=== PATIENT | female | born 1965 | race Caucasian/White ===

== ENCOUNTER → 2017-06-08 09:07 | Outpatient (CLI) | payer BC, SELFPAY ==
[2017-06-08 09:27] LABS: Microscopic, Urine URINE MICROSCOPIC (MICROSCOPIC)
[2017-06-08 09:56] LABS: Basophils # 0.1 K/mm3 (0-0.2); Basophils % 0.6 % (0.1-2.0); Eosinophils # 0.2 K/mm3 (0.0-0.4); Eosinophils % 1.9 % (0.1-12.0); Hematocrit 45.1 % (37.0-47.0); Hemoglobin 14.5 g/dL (12.2-16.2); Lymphocytes # 1.7 K/mm3 (0.7-4.5); Lymphocytes % 18.7 K/mm3 (10-50); Mean Corpuscular HGB Conc 32.1 g/dL (31.8-35.4); Mean Corpuscular Hemoglobin 28.4 pg (27.0-31.2); Mean Corpuscular Volume 88.3 fl (81-99); Mean Platelet Volume 9.1 fl (7.4-10.4); Monocytes # 0.6 K/mm3 (0.1-1.0); Monocytes % 6.2 % (1.7-9.3); Neutrophils # 6.6 K/mm3 (1.8-7.8); Neutrophils % 72.6 % (37.0-80.0); Platelet Count 252 K/mm3 (142-424); Red Cell Distribution Width 13.3 % (11.5-17.5); White Blood Count 9.1 K/mm3 (4.8-10.8)
[2017-06-08 11:01] LABS: Appearance,Urine CLEAR (Clear); Bilirubin,Urine Negative (Negative); Blood, Urine Negative (Negative); Color,Urine YELLOW (Yellow); Glucose,Urine (UA) Negative (Negative); Ketones,Urine Negative (Negative); Leukocyte Esterase,Urine Negative (Negative); Nitrate,Urine Negative (Negative); PH,Urine 5.5 (5.0-8.5); Protein,Urine Negative (Negative); Specific Gravity, Urine >= 1.030 (1.005-1.030); Urobilinogen,Urine 0.2 EU/dl (0.2)
[2017-06-08 11:24] LABS: WBC,Urine Occasional #/hpf (0-3)
[2017-06-08 11:25] LABS: Bacteria,Urine Trace /lpf; RBC,Urine Occasional #/hpf (0-3)
[2017-06-08 11:41] LABS: Alanine Aminotransferase 32 U/L (12-78); Albumin Level 3.9 gm/dL (3.4-5.0); Albumin/Globulin Ratio 1.3 (1.1-1.8); Alkaline Phosphatase 75 U/L (46-116); Anion Gap 10.4 mEq/L (5-15); Aspartate Amino Transferase 10 U/L (15-37); Bilirubin,Total 0.7 mg/dL (0.2-1.0); Blood Urea Nitrogen 20 mg/dL (7-18); Calcium 9.1 mg/dL (8.5-10.1); Carbon Dioxide 30 mmol/L (21.0-32.0); Chloride 101 mmol/L (98-107); Creatinine,Serum 0.85 mg/dL (0.55-1.02); Estimated Glomerular Filt Rate > 60 ml/min (>60); GFR (African American) > 60 ML/MIN (>60); Globulin 3.1 gm/dl (1.3-3.2); Glucose 105 mg/dL (74-106); Potassium 3.4 mmoL/L (3.5-5.1); Sodium 138 mmol/L (136-145)
[2017-06-08 13:02] LABS: HCG Qualitative, Serum Negative (Negative)
== END ==
PROVIDERS: PCP Obstetrics & Gynecology; Visit Provider Obstetrics & Gynecology
DX: N92.0 Excessive and frequent menstruation with regular cycle (principal); N85.6 Intrauterine synechiae; Z01.818 Encounter for other preprocedural examination
CPT/HCPCS: 36415; 80053; 81001; 84703; 85025

== ENCOUNTER 2017-06-12 10:21 | Inpatient (IN) | payer BC, SELFPAY ==
[2017-06-10 13:52] VITALS: BMI 31.7
[2017-06-12] VITALS (23 sets, daily range): BP systolic 94–139; BP diastolic 55–86; PULSE 57–83; RESP 14–18; TEMP 36.1–43; O2SAT 94–100; BMI 32.2
--- NOTE | 2017-06-12 06:59 | HMH.ANESCL ---
[facility] Anesthesia Checklist - Patient Identification Patient Identification: Arm Band, Verbal (Name & ) - Structural Data Admitted From: Home Planned Operative Procedure/s: ORA Consent for Planned Operative Procedure(s) Verified: Yes Verified Documents: Surgical Consent, History and Physical - NPO Status Verified Time NPO: 00:00 - Chart Verification Results Verified: CBC, BMP - Additional verifications Patient : No Anesthesia Reactions: No Hx Blood Transfusions: No Blood Transfusion Reaction: No - Cardiovascular Assessment Heart Sounds: S1 & S2 Pulse Strength: Strong Pulse Rhythm: Regular Peripheral Edema: No - Airway Assessment C-Spine Mobility Assessed: Yes TMJ Mobility Assessed: Yes Dentition: Good Dentition - Neurological Assessment Level of Consciousness: Awake - Genitourinary Assessment Urinary Incontinence: None - Anesthesia Plan Anesthesia Risk discussed: Yes Anesthesia Plan: Verified ASA Class: II Anesthesia Type: General [facility] Anesthesia HX I have reviewed the patient's past medical history: Yes Medical History: Reports:: Hypertension Denies:: Cancer, Diabetes Mellitus Type 1, Diabetes Mellitus Type 2, MRSA, Seizures Other Medical History: Reports: Thyroid Disease Amputation: No Fractures: No *Family Hx:: Diabetes, Thyroid Disorder
--- NOTE | 2017-06-12 07:02 | P.PN_ITS ---
[facility] Anesthesia Checklist - Patient Identification Patient Identification: Arm Band, Verbal (Name & ) - Structural Data Admitted From: Home Planned Operative Procedure/s: ORA Consent for Planned Operative Procedure(s) Verified: Yes Verified Documents: Surgical Consent, History and Physical - NPO Status Verified Time NPO: 00:00 - Chart Verification Results Verified: CBC, BMP - Additional verifications Patient : No Anesthesia Reactions: No Hx Blood Transfusions: No Blood Transfusion Reaction: No - Cardiovascular Assessment Heart Sounds: S1 & S2 Pulse Strength: Strong Pulse Rhythm: Regular Peripheral Edema: No - Airway Assessment C-Spine Mobility Assessed: Yes TMJ Mobility Assessed: Yes Dentition: Good Dentition - Neurological Assessment Level of Consciousness: Awake - Genitourinary Assessment Urinary Incontinence: None - Anesthesia Plan Anesthesia Risk discussed: Yes Anesthesia Plan: Verified ASA Class: II Anesthesia Type: General [facility] Anesthesia HX I have reviewed the patient's past medical history: Yes Medical History: Reports:: Hypertension Denies:: Cancer, Diabetes Mellitus Type 1, Diabetes Mellitus Type 2, MRSA, Seizures Other Medical History: Reports: Thyroid Disease Amputation: No Fractures: No *Family Hx:: Diabetes, Thyroid Disorder
--- NOTE | 2017-06-12 09:03 | HMH.OPNOTE ---
Date of procedure: 06/12/17 Pre-op Diagnosis:: Dysfunctional uterine bleeding Post-op diagnosis:: same Procedure performed:: Total abdominal hysterectomy, bilateral salpingo-oophorectomy Surgeon:: Terell Lewis MD Upholstery Handler(s):: JULIANN Kerns EVALUATION ADVISOR:: Carlos Quinonez Anesthesia: GETA Estimated blood loss (mL): 300 Operative findings:: Dysfunctional uterine bleeding, extensive pelvic adhesions. Operative note:: After the patient was prepped and draped in usual fashion and general anesthesia was administered, a lower abdominal Pfannenstiel incision was made through the previous incision, and the fat and fascia was in usual fashion, bleeders being clamped and coagulated along the way. The peritoneum was entered with Metzenbaum scissors, and extended above and below. The uterus was found to be adherent to the anterior abdominal wall, and the bladder was well advanced on the uterus, consistent with previous sections. Both adnexa appeared normal, but were adherent to the pelvic sidewalls. The bowel was packed away, and a self-retaining Debbi retractor with bladder blade was placed. The uterine fundus was grasped with a double-tooth tenaculum, and elevated. The round ligament on either side was Spencer clamped, cut, and Belem suture with #1 Vicryl, after which the bladder peritoneum was carefully dissected free. The ovarian ligaments on either side with Belem clamp, cut, and Belem sutured with #1 Vicryl, as were the uterine vessels and cardinal and uterosacral ligaments. The vagina was entered anteriorly with a knife, and the uterine specimen was removed with Kobe scissors. Cohoon clamps were used to tent up the vaginal cuff, which was closed with a running locked suture of #1 Vicryl. There was no undue bleeding. Gelfoam was placed against the back of the vaginal cuff for hemostasis. Each adnexa was then addressed, and carefully dissected free from the pelvic sidewall. The infundibulopelvic ligament on either side with Belem clamp, cut, and Belem suture with #1 Vicryl, thus removing each adnexa. The appendix was identified, but was retrocecal and remains in situ. The peritoneum was grasped with 3 Cherelle clamps, and closed with a running semi-locked suture of 0 Vicryl. The muscle was approximated with a running unlocked suture of 0 Vicryl. The fascia was closed with a running locked suture of #1 Vicryl. The subcutaneous fat and Ivan's fascia were closed with a running unlocked suture of 2-0 Vicryl. The skin was closed with a subcuticular suture of 3-0 Vicryl, and appropriately dressed. The urine was clear in the Jiménez catheter. The sponge and needle count was correct. Estimated blood loss was 300 cc. The patient tolerated the procedure well, and was taken to PACU in excellent condition. Pathology: other (Uterus, both adnexa) Condition: stable Disposition: floor Complications:: None
--- NOTE | 2017-06-12 09:09 | P.OP_ITS ---
Date of procedure: 06/12/17 Pre-op Diagnosis:: Dysfunctional uterine bleeding Post-op diagnosis:: same Procedure performed:: Total abdominal hysterectomy, bilateral salpingo-oophorectomy Surgeon:: Terell Lewis MD Machine Joint Cutter(s):: JULIANN Kerns PROJECT MANAGER SENIOR:: Carlos Quinonez Anesthesia: GETA Estimated blood loss (mL): 300 Operative findings:: Dysfunctional uterine bleeding, extensive pelvic adhesions. Operative note:: After the patient was prepped and draped in usual fashion and general anesthesia was administered, a lower abdominal Pfannenstiel incision was made through the previous incision, and the fat and fascia was in usual fashion, bleeders being clamped and coagulated along the way. The peritoneum was entered with Metzenbaum scissors, and extended above and below. The uterus was found to be adherent to the anterior abdominal wall, and the bladder was well advanced on the uterus, consistent with previous sections. Both adnexa appeared normal, but were adherent to the pelvic sidewalls. The bowel was packed away, and a self-retaining Debbi retractor with bladder blade was placed. The uterine fundus was grasped with a double-tooth tenaculum, and elevated. The round ligament on either side was Spencer clamped, cut, and Belem suture with #1 Vicryl, after which the bladder peritoneum was carefully dissected free. The ovarian ligaments on either side with Belem clamp, cut, and Belem sutured with #1 Vicryl, as were the uterine vessels and cardinal and uterosacral ligaments. The vagina was entered anteriorly with a knife, and the uterine specimen was removed with Kobe scissors. Cohoon clamps were used to tent up the vaginal cuff, which was closed with a running locked suture of # 1 Vicryl. There was no undue bleeding. Gelfoam was placed against the back of the vaginal cuff for hemostasis. Each adnexa was then addressed, and carefully dissected free from the pelvic sidewall. The infundibulopelvic ligament on either side with Belem clamp, cut, and Belem suture with #1 Vicryl, thus removing each adnexa. The appendix was identified, but was retrocecal and remains in situ. The peritoneum was grasped with 3 Cherelle clamps, and closed with a running semi-locked suture of 0 Vicryl. The muscle was approximated with a running unlocked suture of 0 Vicryl. The fascia was closed with a running locked suture of #1 Vicryl. The subcutaneous fat and Ivan's fascia were closed with a running unlocked suture of 2-0 Vicryl. The skin was closed with a subcuticular suture of 3-0 Vicryl, and appropriately dressed. The urine was clear in the Jiménez catheter. The sponge and needle count was correct. Estimated blood loss was 300 cc. The patient tolerated the procedure well, and was taken to PACU in excellent condition. Pathology: other (Uterus, both adnexa) Condition: stable Disposition: floor Complications:: None
--- NOTE | 2017-06-12 09:16 | P.PN_ITS ---
[facility] Anesthesia Record Part II Discharge Time: 09:40 Destination: 2nd floor PACU nurse assessment reviewed?: Yes Patient Condition:: Good Anesthesia Complications:: None
--- NOTE | 2017-06-12 09:16 | P.PN_ITS ---
[facility] Anesthesia Record Part I Intake, IV Amount: 1,600 Estimated blood loss (mL): 300 Urine output (mL): 100 Blood Pressure: 135/71 SaO2: 98 Pulse Rate: 74 Respiratory Rate: 16 Temperature: 97.3 F Patient is:: Drowsy, Nasal O2, Stable Stable to PACU at:: 09:10
--- NOTE | 2017-06-12 10:58 | PC.NURSE ---
100 ml out of f/c when emptied in OR
--- NOTE | 2017-06-12 11:07 | PC.NURSE ---
Pt resting comfortably in bed at this time, family members present at bedside. Pt dozing. Pt presented to the floor at 1005 drowsy and with nasal cannula in place. SaO2 95-99% on 2 L when pt arrived in department. Pt has now been weaned to room air with SaO2 of 97%.
--- NOTE | 2017-06-12 11:13 | PC.NURSE ---
Oral temp of 97.2, pt has been drinking water and eating ice chips, will continue to monitor temp.
[2017-06-12 12:14] LABS: Hematocrit 39.3 % (37.0-47.0); Hemoglobin 12.6 g/dL (12.2-16.2)
--- NOTE | 2017-06-12 12:56 | PC.NURSE ---
Dr. Lewis in to see pt at this time. MD discussing surgery with pt, pt v/u. Pt expresses concern to MD that her hands are swollen, new orders from MD to decrease LR rate from 125 ml/hr to 25 ml/hr. Pt also requesting to eat sherbet, new orders from to advance pt to a full liquid diet for dinner. New order also at this time to remove joseph catheter tonight around 2100. All verbal orders repeated and verified.
--- NOTE | 2017-06-12 14:15 | PC.NURSE ---
Pulse oximetry monitor beeping while pt is dozing, SaO2 ranging from 88-94% while pt is dozing. 2 L O2 being administered at this time via nasal cannula. Pt resting in bed, denies any needs.
--- NOTE | 2017-06-12 16:29 | HMH.ACPN ---
Internal Medicine - PN: Subj *Date: 06/12/17 *Time: 16:29 (This is day of surgery. The patient is afebrile. Vital signs stable. Wound clean. Abdomen soft. Surgeries been explained to the patient. impression stable.) Exam Vital signs and Labs for Last 24 Hours: Temp Pulse Resp BP Pulse Ox 97.6 F 76 16 108/66 100 06/12/17 15:15 06/12/17 15:15 06/12/17 15:15 06/12/17 15:15 06/12/17 15:15 Laboratory Results - last 24 hr 06/12/17 11:38: Hgb 12.6, Hct 39.3 I & O for Last 24 hours: Intake & Output 06/10/17 06/11/17 06/12/17 06/13/17 11:59 11:59 11:59 11:59 Intake Total 1600 / 1600 Output Total 100 / 100 Balance 1500 / 1500 Weight 168 lb 170 lb 12.573 oz
--- NOTE | 2017-06-12 17:15 | PC.NURSE ---
Pt remains A&O X3 at this time, has been dozing this shift, VSS, family member at bedside talking with pt. On reassessment, lung sounds are clear throughout, no s/s distress, abdomen soft and moderately tender in bilateral lower quads with BS hypoactive in all quads. F/C patent and draining alvaro colored urine at bedside, sediment noted, approx 400 ml noted in catheter bag at this time. Pt is s/p ORA, LTV incision is C/D/I with bruising noted around incision. Dressing changed at this time by RN, tolerated well by pt. Dressing was saturated with serosang. drainage. Telfa and tegaderm dressing is now C/D/I. Pt is tolerating full liquid diet well with no c/o nausea or vomiting. 20 G IV intact to left hand and infusing LR at 25 ml/hr per MD order. Will continue to monitor.
--- NOTE | 2017-06-12 19:05 | PC.NURSE ---
Report given to Michele De Santiago RN at this time.
--- NOTE | 2017-06-12 22:00 | PC.NURSE ---
Addendum entered by Jennifer Swain RN 06/13/17 06:48: IV infusing in Lt hand instead of RT Original Note: Report received from DEMI Mir. Pt currently asleep. Was medicated with pain medication arount 1899.. IV infusing in rt hand w/o difficulty. F/C patent to BSD with very small amt of dark, concentrated urine noted. IV fluids were decreased per Dr. Lewis just before shift change r/t pt not receiving normal diuretic medications x2.
--- NOTE | 2017-06-12 23:00 | PC.NURSE ---
Pt sleeping soundly upon entering room. Lying on rt side. F/C patent to bsd. Cloudy / concentrated urine noted in drainage bag.
[2017-06-13] VITALS (8 sets, daily range): BP systolic 101–116; BP diastolic 53–72; PULSE 71–88; RESP 16–20; TEMP 36.4–37.2; O2SAT 96–99
--- NOTE | 2017-06-13 02:57 | PC.NURSE ---
IV FLUIDS INCREASED TO 75ML/HR R/T DECREASED URINE OUTPUT WELL THICK CONCENTRATED URINE.
--- NOTE | 2017-06-13 03:33 | PC.NURSE ---
LTV INCISION DRESSING COMPLETELY SATURATED WITH BRIGHT RED BLOOD. DRESSING REMOVED AND INCISION CLEANED WITH 1/2 STRENGTH PEROXIDE. INCISION WELL APPROXIMATED, NO ACTIVE OOZING OR DRAINAGE VISIBLY NOTICED AT THIS TIME. MODERATE AMT OF BRUISING TO BILATERAL SIDES OF INCISION WELL LOWER LEFT SIDE. DISCUSSED HOME CARE / CLEANSING OF INCISION WITH PATIENT. PT VERBALIZES UNDERSTANDING. NEW 3X4 CURAD STERILE NON-STICK DRESSING WITH TEGADERM FOLDED IN 1/2 AND APPLIED MILD PRESSURE DRESSING. PT TOLERATED PROCEDURE WELL.
--- NOTE | 2017-06-13 07:06 | PC.NURSE ---
Report to ThuyRN
--- NOTE | 2017-06-13 08:58 | HMH.ACPN ---
Internal Medicine - PN: Subj *Date: 06/13/17 *Time: 08:58 (This is postop day #1. Hemoglobin 12.6 g. Doing well. Abdomen soft. Wound clean. Urine output is good. Plan is to increase diet and ambulation today.) Exam Vital signs and Labs for Last 24 Hours: Temp Pulse Resp BP Pulse Ox 98.0 F 73 18 116/64 99 06/13/17 03:14 06/13/17 03:14 06/13/17 03:14 06/13/17 03:14 06/13/17 03:14 Laboratory Results - last 24 hr 06/12/17 11:38: Hgb 12.6, Hct 39.3 I & O for Last 24 hours: Intake & Output 06/10/17 06/11/17 06/12/17 06/13/17 11:59 11:59 11:59 11:59 Intake Total 1600 / 1600 1394 / 1394 Output Total 100 / 100 645 / 645 Balance 1500 / 1500 749 / 749 Weight 168 lb 170 lb 12.573 oz
--- NOTE | 2017-06-13 08:59 | PC.NURSE ---
DR BIRMINGHAM AT BEDSIDE, ORDERED TO REMOVE STODDARD CATH, FULL LIQUID DIET WITH TOAST. AMBULATION TODAY.
--- NOTE | 2017-06-13 12:14 | PC.NURSE ---
06/13/17 1135 AFTER STODDARD CATHETER REMOVED, LUIS ANGEL CARE PROVIDED, MESH PANTIES AND LUIS ANGEL PAD APPLIED, SCANT AMOUNT OF VAGINAL BLEEDING NOTED. OFFERED TO HELP PATIENT TO THE SHOWER, SHE REFUSED AT THIS TIME, PARTIAL BED LINENS CHANGED, PATIENTS CLOTHING CHANGED AT THIS TIME, ICE PITCHER FILLED, DRINKING TEA HER BROUGHT IN FROM HOME, STOOD AT SIDE OF BED A WALK AROUND.
--- NOTE | 2017-06-13 12:23 | PC.NURSE ---
LOW TRANSVERSE INCISION COVERED WITH TELFA AND TEGA DERM, DRESSING REMAINS CLEAN, DRY AND INTACT, BRUISING NOTED UNDER DRESSING ON THE LEFT SIDE OF THE INCISION.
--- NOTE | 2017-06-13 13:19 | P.CONPHA_ITS ---
[facility] Pharmacy VTE Monitoring - Patient Demographics Admission date: 06/12/17 Report Date: 06/13/17 Time: 13:18 Allergies/Adverse Reactions: erythromycin base Allergy (Intermediate, Verified 06/12/17 06:37) I-HIVES Height: 1.55 m Weight: 77.467 kg - VTE Risk Labs: VTE Related Lab Results Hgb 12.6 g/dL (12.2-16.2) 06/12/17 11:38 Hct 39.3 % (37.0-47.0) 06/12/17 11:38 - Prophylaxis VTE Prophylaxis Ordered?: Yes Types of VTE Prophylaxis: IPCS Knee High Location of Applied Device: Bilateral Lower Extremeties
--- NOTE | 2017-06-13 16:32 | PC.NURSE ---
LAB AT BEDSIDE DRAWING STAT CBC AND CHEM 7
[2017-06-13 16:39] LABS: Basophils % 0.2 % (0.1-2.0); Eosinophils % 0.2 % (0.1-12.0); Hematocrit 28.8 % (37.0-47.0); Hemoglobin 9.3 g/dL (12.2-16.2); Lymphocytes % 15.9 K/mm3 (10-50); Mean Corpuscular HGB Conc 32.4 g/dL (31.8-35.4); Mean Corpuscular Hemoglobin 28.8 pg (27.0-31.2); Mean Corpuscular Volume 88.8 fl (81-99); Mean Platelet Volume 10.5 fl (7.4-10.4); Monocytes # 0.5 K/mm3 (0.1-1.0); Monocytes % 4.3 % (1.7-9.3); Neutrophils # 9.9 K/mm3 (1.8-7.8); Neutrophils % 79.4 % (37.0-80.0); Platelet Count 198 K/mm3 (142-424); Red Blood Count 3.25 M/mm3 (4.20-5.40); Red Cell Distribution Width 13.4 % (11.5-17.5); White Blood Count 12.5 K/mm3 (4.8-10.8)
[2017-06-13 16:44] LABS: Anion Gap 4.1 mEq/L (5-15); Blood Urea Nitrogen 18 mg/dL (7-18); Carbon Dioxide 34 mmol/L (21.0-32.0); Chloride 103 mmol/L (98-107); Creatinine Clearance Estimated 117 mL/min (0-300); Creatinine,Serum 0.71 mg/dL (0.55-1.02); Estimated Glomerular Filt Rate 87 ml/min (>60); GFR (African American) 106 ML/MIN (>60); Glucose 112 mg/dL (74-106); Potassium 3.1 mmoL/L (3.5-5.1); Sodium 138 mmol/L (136-145)
--- NOTE | 2017-06-13 16:54 | PC.NURSE ---
DR BIRMINGHAM CALLED WITH CBC AND CHEM 7 RESULTS. H/H 9.3/28.8, WBC 12.5, K+ 3.1 NO NEW ORDERS AT THIS TIME, WANTS PATIENT TO TAKE IV PHENERGAN, SHE IS REFUSING AT THIS TIME. STATES SHE IS ONLY NAUSEATED AND FEELING DIZZY WHEN TRYING TO GET UP ON THE SIDE OF BED. DR BIRMINGHAM NOTIFIED OF THIS, NO NEW ORDERS.
--- NOTE | 2017-06-13 18:32 | PC.NURSE ---
DR BIRMINGHAM CALLED IN FOR AN UPDATE, PATIENT TOOK 6.25MG DOSE OF PHENERGAN AND NAUSEA IS RESOLVED AT THIS TIME. WAS ABLE TO GET UP TO BSC MUCH EASIER THIS TIME, VOIDED 300ML. TOLERATED WELL, REFUSING FURTHER PAIN MEDICATION AT THIS TIME
--- NOTE | 2017-06-13 18:53 | PC.NURSE ---
REPORT GIVEN TO MRECY BORJA RN
--- NOTE | 2017-06-13 20:10 | PC.NURSE ---
STODDARD CATH INSERTED: LOT: [id number] EXP: 2018-12-29 REASON FOR INSERTION: PROLONGED IMMOBILIZATION.
--- NOTE | 2017-06-13 23:50 | PC.NURSE ---
23:45 pT UP TO BSC TO VOID AND REQUESTING PAIN MEDICATION. PT RATES PAIN AT 8/10 ON PAIN SCALE. PT MEDICATED WITH 2MG IV DILAUDID AND 12.5MG PHENERGAN PER REQUEST OF PT AND R/T DILAUDID MAKING PT NAUSEATED TO WHERE SHE CAN'T EAT... PT LYING ON RT SIDE AND REPORTS BEING COMFORTABLE AT THIS TIME (23:52).
[2017-06-14] VITALS (24 sets, daily range): BP systolic 84–111; BP diastolic 34–68; PULSE 77–92; RESP 16–20; TEMP 36.4–37; O2SAT 95–100
--- NOTE | 2017-06-14 05:45 | PC.NURSE ---
LAB PERSONNEL AT TO DRAW H/H.
[2017-06-14 06:43] LABS: Hemoglobin 8.3 g/dL (12.2-16.2)
[2017-06-14 06:44] LABS: Hematocrit 26.3 % (37.0-47.0)
--- NOTE | 2017-06-14 07:12 | HMH.ACPN ---
Internal Medicine - PN: Subj *Date: 06/14/17 *Time: 07:12 Interval history: post-op day #2--Pt is afebrile--VS stable--wound clean--abdomen soft--Passing flatus--Pt c/o extreme weakness--Hgb now 8.3gms--will transfuse 2units packed cells Exam Vital signs and Labs for Last 24 Hours: Temp Pulse Resp BP Pulse Ox 98.6 F 78 16 109/59 98 06/14/17 03:50 06/14/17 03:50 06/14/17 03:50 06/14/17 03:50 06/14/17 03:50 Laboratory Results - last 24 hr 06/13/17 16:30: WBC 12.5 H, RBC 3.25 L, Hgb 9.3 L, Hct 28.8 L, MCV 88.8, MCH 28.8, MCHC 32.4, RDW 13.4, Plt Count 198, MPV 10.5 H, Neut % (Auto) 79.4, Lymph % (Auto) 15.9, Martin % (Auto) 4.3, Eos % (Auto) 0.2, Baso % (Auto) 0.2, Neut # (Auto) 9.9 H, Lymph # (Auto) 2.0, Martin # (Auto) 0.5, Eos # (Auto) 0.0, Baso # (Auto) 0.0 06/13/17 16:30: Sodium 138, Potassium 3.1 L, Chloride 103, Carbon Dioxide 34 H, Anion Gap 4.1 L, BUN 18, Creatinine 0.71, Estimated Creat Clear 117, Estimated GFR 87, Est GFR ( Amer) 106, Glucose 112 H 06/14/17 05:40: Hgb 8.3 L D, Hct 26.3 L I & O for Last 24 hours: Intake & Output 06/11/17 06/12/17 06/13/17 06/14/17 11:59 11:59 11:59 11:59 Intake Total 1600 / 1600 1634 / 1634 600 / 600 Output Total 100 / 100 645 / 645 1895 / 1895 Balance 1500 / 1500 989 / 989 -1295 / -1295 Weight 168 lb 170 lb 12.573 oz 170 lb 12.573 oz
--- NOTE | 2017-06-14 07:15 | P.PN_ITS ---
Internal Medicine - PN: Subj *Date: 06/14/17 *Time: 07:12 Interval history: post-op day #2--Pt is afebrile--VS stable--wound clean--abdomen soft--Passing flatus--Pt c/o extreme weakness--Hgb now 8.3gms--will transfuse 2units packed cells Exam Vital signs and Labs for Last 24 Hours: Temp Pulse Resp BP Pulse Ox 98.6 F 78 16 109/59 98 06/14/17 03:50 06/14/17 03:50 06/14/17 03:50 06/14/17 03:50 06/14/17 03:50 Laboratory Results - last 24 hr 06/13/17 16:30: WBC 12.5 H, RBC 3.25 L, Hgb 9.3 L, Hct 28.8 L, MCV 88.8, MCH 28.8, MCHC 32.4, RDW 13.4, Plt Count 198, MPV 10.5 H, Neut % (Auto) 79.4, Lymph % (Auto) 15.9, Baker % (Auto) 4.3, Eos % (Auto) 0.2, Baso % (Auto) 0.2, Neut # ( Auto) 9.9 H, Lymph # (Auto) 2.0, Baker # (Auto) 0.5, Eos # (Auto) 0.0, Baso # ( Auto) 0.0 06/13/17 16:30: Sodium 138, Potassium 3.1 L, Chloride 103, Carbon Dioxide 34 H, Anion Gap 4.1 L, BUN 18, Creatinine 0.71, Estimated Creat Clear 117, Estimated GFR 87, Est GFR ( Amer) 106, Glucose 112 H 06/14/17 05:40: Hgb 8.3 L D, Hct 26.3 L I & O for Last 24 hours: Intake & Output 06/11/17 06/12/17 06/13/17 06/14/17 11:59 11:59 11:59 11:59 Intake Total 1600 / 1600 1634 / 1634 600 / 600 Output Total 100 / 100 645 / 645 1895 / 1895 Balance 1500 / 1500 989 / 989 -1295 / -1295 Weight 168 lb 170 lb 12.573 oz 170 lb 12.573 oz
[2017-06-14 15:47] LABS: Hemoglobin 10.3 g/dL (12.2-16.2)
--- NOTE | 2017-06-14 16:35 | PC.NURSE ---
bruising noted across entire incision.
--- NOTE | 2017-06-14 20:20 | PC.NURSE ---
low transverse incision without drainage, bruising noted. skin warm and pink. tender to touch
--- NOTE | 2017-06-14 23:30 | PC.NURSE ---
spoke with Dr. Lewis about not having Maxide 25 mg for pt, he stated it was ok to miss this dose.
[2017-06-15 04:00] VITALS: BP 115/57; PULSE 82; RESP 16; TEMP 36.7; O2SAT 96
--- NOTE | 2017-06-15 04:20 | PC.NURSE ---
pt remains stable at this reassment, vss, no pain reported, incision remains unchanged
--- NOTE | 2017-06-15 07:00 | PC.NURSE ---
RECEIVED REPORT FROM Michele DAMON RN
--- NOTE | 2017-06-15 07:31 | P.PN_ITS ---
Internal Medicine - PN: Subj *Date: 06/15/17 *Time: 07:29 (This is postop day #3. The patient's hemoglobin is now 10.3 g, and she is clinically stable. She is eating and ambulating. She has good bowel sounds and passing minimal flatus. Her wound is clean. Abdomen soft. Still having some difficulty with pain management. I am going to keep her one more day and work on her GI function.) Exam Vital signs and Labs for Last 24 Hours: Temp Pulse Resp BP Pulse Ox 98.1 F 82 16 115/57 96 06/15/17 04:00 06/15/17 04:00 06/15/17 04:00 06/15/17 04:00 06/15/17 04:00 Laboratory Results - last 24 hr 06/14/17 08:02: Blood Type O Positive, Antibody Screen Negative, Crossmatch (AHG ) See Detail 06/14/17 08:02: Blood Type Confirm O Positive 06/14/17 15:27: Hgb 10.3 L D, Hct 31.0 L I & O for Last 24 hours: Intake & Output 06/12/17 06/13/17 06/14/17 06/15/17 11:59 11:59 11:59 11:59 Intake Total 1600 / 1600 1634 / 1634 767 / 767 200 / 200 Output Total 100 / 100 645 / 645 2295 / 2295 950 / 950 Balance 1500 / 1500 989 / 989 -1528 / -1528 -750 / -750 Weight 170 lb 12.573 oz 170 lb 12.573 oz
[2017-06-15 07:50] VITALS: BP 105/62; PULSE 93; RESP 16; TEMP 36.9; O2SAT 97
--- NOTE | 2017-06-15 07:50 | PC.NURSE ---
PT RESTING QUIETLY - WAKENS EASILY FOR ASSESSMENT. PT STATES ABD PAIN 5/10 AND TOLERABLE. PT ABLE TO MOVE SIDE TO SIDE IN BED WITHOUT DIFFICULTY. PT OOB AD DAMIEN. PT TOLERATING DIET WELL. DENIES BM SINCE BEFORE SURGERY - STATES + FLATUS. PT TO GET SUPPOSITORY PER DR. BIRMINGHAM WHEN ORDER AVAILABLE FROM PHARMACY. OTHER MEDICATIONS NOT AVAILABLE ON UNIT - PHARMACY AWARE.
--- NOTE | 2017-06-15 08:42 | PC.NURSE ---
PT RESTING - MEDICATED ORDERED. PT TOLERATING PO FLUIDS WELL. WILL CONTINUE TO MONITOR.
--- NOTE | 2017-06-15 09:46 | PC.NURSE ---
PT CURRENTLY SLEEPING. RR EVEN AND UNLABORED.
--- NOTE | 2017-06-15 10:30 | PC.NURSE ---
SPOKE WITH DR. BIRMINGHAM AT 10:27 REGARDING CHANGING PT'S PAIN MEDICATION FROM IV TO PO. RECEIVED NEW ORDER FOR DILAUDID 2 MG PO [id number] PRN. ORDER READ BACK AND VERIFIED. PT ALSO TO ADVANCE TO REGULAR DIET FOR LUNCH PER DR. BIRMINGHAM. ORDER PLACED.
--- NOTE | 2017-06-15 11:07 | PC.NURSE ---
Addendum entered by Giana Ingram RN 06/15/17 11:09: PT AGREEABLE WITH PLAN. Original Note: PT C/O INCREASED PAIN. MEDICATED WITH PO DILAUDID AND ACETAMINOPHEN ORDERED. OUTLINED PLAN FOR PT REGARDING GETTING OOB TO SHOWER AND CHAIR PRIOR TO LUNCH BUT AFTER PAIN MEDICINE HAS TIME TO START WORKING. PT AGREEABLE WITH PT.
[2017-06-15 12:21] VITALS: BP 105/65; PULSE 105; RESP 18; TEMP 37.1; O2SAT 97
--- NOTE | 2017-06-15 12:23 | PC.NURSE ---
PT OOB TO BR FOR SHOWER - NOW SITTING IN CHAIR. STATES PAIN NOW 3/10 AND STATES SHE FEELS MUCH BETTER. LUNCH TRAY AT BEDSIDE.
--- NOTE | 2017-06-15 13:00 | PC.NURSE ---
PT C/O FEELING NAUSEATED AND NOT WANTING TO EAT AT THIS TIME, BUT STILL FEELS VERY HUNGRY. IV PLACED IN L UPPER ARM WITHOUT DIFFICULTY.
--- NOTE | 2017-06-15 13:26 | PC.NURSE ---
PT MEDICATED WITH PHENERGAN IV ORDERED FOR C/O NAUSEA.
--- NOTE | 2017-06-15 14:10 | PC.NURSE ---
PT CONTINUES WITHOUT A BM EVEN AFTER SUPPOSITORY. SENNA GIVEN PER PRN ORDER. PT STATES NAUSEA BETTER - ATTEMPTING TO EAT MASHED POTATOES. CONTINUES TO DRINK FLUIDS HOURLY.
--- NOTE | 2017-06-15 14:22 | PC.NURSE ---
PT OOB AMBULATING FULL [place] AROUND UNIT WITHOUT DIFFICULTY. DENIES DIZZINESS. STATES SHE JUST FEELS WEAK, BUT BETTER THAN YESTERDAY.
--- NOTE | 2017-06-15 15:00 | PC.NURSE ---
PT RESTING QUIETLY - OFFERS NO COMPLAINTS. STATES PAIN TOLERABLE AT THIS POINT. STILL TAKING BITES OF LUNCH TRAY. TOLERATING PO FLUIDS WELL.
[2017-06-15 15:41] LABS: Microscopic,Cath URINE MICROSCOPIC (MICROSCOPIC)
[2017-06-15 15:47] LABS: Appearance,Urine/Cath Turbid (Clear); Blood, Urine/Cath 1+ (Negative); Color,Urine/Cath YELLOW (Yellow); Glucose,Urine/Cath (UA) Negative (Negative); Ketones,Urine/Cath Negative (Negative); PH,Urine/Cath 5.5 (5.0-8.5); Protein,Urine/Cath Negative (Negative); Specific Gravity, Urine/Cath > 1.030 (1.005-1.030)
[2017-06-15 15:48] LABS: Bilirubin,Cath Negative (Negative); Leukocyte Esterase,Cath Negative (Negative); Nitrate,Cath Negative (Negative); Urobilinogen,Cath 0.2 EU/dl (0.2)
[2017-06-15 15:58] LABS: Amorphous Sediment,Ur/Cath 4+ /lpf; Bacteria,Urine/Cath TRACE /lpf
[2017-06-15 16:00] VITALS: BP 133/80; PULSE 88; RESP 16; TEMP 36.7; O2SAT 100
--- NOTE | 2017-06-15 16:00 | PC.NURSE ---
PT DOING WELL - OFFERS COMPLAINTS OF INCREASING PAIN - STATES PAIN MEDICINE GIVEN 5 HOURS AGO (ORAL DILAUDID 2 MG WITH ACETAMINOPHEN) WORKED REALLY WELL FOR HER PAIN. PT STATES AT 15:45 SHE FINALLY HAD A MEDIUM TO LARGE BM. ABD IS SOFT, ROUND, TENDER AT INCISION, WITH + BOWEL SOUNDS THROUGHOUT. PT CONTINUES WITH BRUISING ABOVE INCISION, BUT HAS NO DRAINAGE FROM SITE. DENIES ANY VAG BLEEDING EXCEPT FOR OCCASIONAL SCANT AMOUNT WHEN WIPING AFTER URINATING. LS CLEAR BILATERALLY - ALL LOBES. ENCOURAGED PT TO CONTINUE USING INCENTIVE SPIROMETER. NO EDEMA NOTED. IV PATENT AND INTACT. FAMILY AT BEDSIDE. WILL CONTINUE TO MONITOR.
--- NOTE | 2017-06-15 17:01 | PC.NURSE ---
PT CURRENTLY SLEEPING. RR EVEN AND UNLABORED. SIDE RAILS UP, CALL MARTINEZ IN REACH. WILL CONTINUE TO MONITOR.
--- NOTE | 2017-06-15 18:02 | PC.NURSE ---
PT RESTING WITH EYES CLOSED -WAKENS EASILY. TOLERATING REGULAR DIET WELL. ATE SANDWICH FOR DINNER - REFUSING REST OF DINNER AT THIS TIME. TOLERATING PO FLUIDS WELL. DENIES ANY NEEDS AT THIS TIME. STATES HAS BEEN OOB TO BR PAST HOUR.
--- NOTE | 2017-06-15 19:00 | PC.NURSE ---
all charting completed by edmund deluca rn was reviewed and agreed with by this writter.
--- NOTE | 2017-06-15 19:04 | PC.NURSE ---
REPORT GIVEN TO Nirmala PORRAS RN
[2017-06-15 19:59] VITALS: BP 118/63; PULSE 76; RESP 16; TEMP 36.6; O2SAT 99
[2017-06-15 20:00] VITALS: RESP 16; O2SAT 99
[2017-06-16 00:25] VITALS: BP 114/62; PULSE 79; RESP 18; TEMP 37.2; O2SAT 97
[2017-06-16 05:13] VITALS: BP 118/67; PULSE 78; RESP 16; TEMP 36.8; O2SAT 97
--- NOTE | 2017-06-16 05:17 | PC.NURSE ---
NO ACUTE CHANGES FROM PREVIOUS ASSESSMENT.LUNGS CLEAR,RESP.EVEN AND UNLABORED.PT HAS RESTING WELL TONIGHT,MEDICATED X 1.INCISION OPEN TO AIR NO DRAINAGE NOTED.BRUISING AROUND INCISION.PT REPORTS PASSING FLATUS NO MORE BOWEL MOVEMENTS SINCE YESTERDAY
--- NOTE | 2017-06-16 07:15 | HMH.ACPN ---
Internal Medicine - PN: Subj *Date: 06/16/17 *Time: 07:15 (This is postop day #4. The patient is afebrile. Vital signs stable. Wound clean. Abdomen soft. She is eating and ambulating, and has had a bowel movement. She will be discharged today.) Exam Vital signs and Labs for Last 24 Hours: Temp Pulse Resp BP Pulse Ox 98.2 F 78 16 118/67 97 06/16/17 05:13 06/16/17 05:13 06/16/17 05:13 06/16/17 05:13 06/16/17 05:13 Laboratory Results - last 24 hr 06/12/17 07:20: Urine Color Yellow, Urine Appearance Turbid, Urine pH 5.5, Ur Specific [place] > 1.030 H, Urine Protein Negative, Urine Glucose (UA) Negative, Urine Ketones Negative, Urine Blood 1+, Urine Nitrate Negative, Urine Bilirubin Negative, Urine Urobilinogen 0.2, Ur Leukocyte Esterase Negative, Urine RBC None, Urine WBC None, Ur Squamous Epith Cells None, Urine Bacteria Trace I & O for Last 24 hours: Intake & Output 06/13/17 06/14/17 06/15/17 06/16/17 11:59 11:59 11:59 11:59 Intake Total 1634 / 1634 767 / 767 200 / 200 480 / 480 Output Total 645 / 645 2295 / 2295 950 / 950 Balance 989 / 989 -1528 / -1528 -750 / -750 480 / 480 Weight 170 lb 12.573 oz
--- NOTE | 2017-06-16 07:17 | PC.NURSE ---
report given to ianrn
--- NOTE | 2017-06-16 07:17 | HMH.DCSUM ---
General - General Admission date: 06/12/17 Discharge date: 06/16/17 (This 51-year-old white female was admitted for definitive treatment of dysfunctional uterine bleeding. On the date of admission, she was taken to the operating room, where she underwent a total abdominal hysterectomy and bilateral salpingo-oophorectomy, without complications. Postoperatively, the patient has some difficulty with pain management, and her hemoglobin dropped to 8.3 g, at which time she was transfused 2 units of packed cells. Her hemoglobin is now 10.3 g, and she is clinically stable. She is eating and ambulating, and has had a bowel movement. Her wound is clean. Her abdomen is soft. She is discharged home on the fourth postoperative day on Dilaudid 4 mg (#30), 1 p.o. every 6 hours as needed pain. She received Delestrogen 30 mg IM in PACU. She is given appropriate instructions as to diet, exercise, and wound care, and she is to return to the office in 2 weeks for follow-up. She is not a smoker.) Objective Vital signs: Temp Pulse Resp BP Pulse Ox 98.2 F 78 16 118/67 97 06/16/17 05:13 06/16/17 05:13 06/16/17 05:13 06/16/17 05:13 06/16/17 05:13 Results Labs on day of discharge: Labs from last 24 hours 06/12/17 07:20 Urine Color Yellow Urine Appearance Turbid Urine pH 5.5 Ur Specific [place] > 1.030 H Urine Protein Negative Urine Glucose (UA) Negative Urine Ketones Negative Urine Blood 1+ Urine Nitrate Negative Urine Bilirubin Negative Urine Urobilinogen 0.2 Ur Leukocyte Esterase Negative Urine RBC None Urine WBC None Ur Squamous Epith Cells None Urine Bacteria Trace Meds Home Medications Medication Instructions Recorded Confirmed Type levothyroxine 75 mcg capsule 75 mcg PO QDAY cap 06/08/17 06/12/17 History spironolactone 25 mg tablet 25 mg PO QDAY 06/08/17 06/12/17 History Triamterene/Hydrochlorothiazid 25 - 37.5 mg PO DAILY 06/13/17 06/13/17 History [Maxzide 37.5 mg-25 mg Tablet] Allergies Allergy/AdvReac Type Severity Reaction Status Date / Time erythromycin base Allergy Intermediate I-HIVES Verified 06/12/17 06:37 Discharge Plan - Patient Discharge Instructions - Follow up Plan Home Medications: Home Medications Medication Instructions Recorded Confirmed Type levothyroxine 75 mcg capsule 75 mcg PO QDAY cap 06/08/17 06/12/17 History spironolactone 25 mg tablet 25 mg PO QDAY 06/08/17 06/12/17 History Triamterene/Hydrochlorothiazid 25 - 37.5 mg PO DAILY 06/13/17 06/13/17 History [Maxzide 37.5 mg-25 mg Tablet] Prescriptions/Medication Reconciliation: No Action spironolactone 25 mg tablet 25 mg PO QDAY levothyroxine 75 mcg capsule 75 mcg PO QDAY cap Triamterene/Hydrochlorothiazid [Maxzide 37.5 mg-25 mg Tablet] 25 - 37.5 mg PO DAILY
--- NOTE | 2017-06-16 07:19 | PC.NURSE ---
making am rounds,plans on sending pt home
[2017-06-16 08:45] VITALS: BP 134/79; PULSE 86; RESP 16; TEMP 36.6; O2SAT 98
--- NOTE | 2017-06-16 13:35 | PC.NURSE ---
Discharge complete, completed discharge teaching, no questions at this time. took pt out to car via wheelchair. and spouse
== END 2017-06-16 13:37 | disposition home or self-care (01) | DRG 743 ==
LOC: OB 10:22
PROVIDERS: Admitting Provider Obstetrics & Gynecology; Family Provider Family Medicine; PCP Family Medicine; Visit Provider Obstetrics & Gynecology
PROC: 0UT90ZZ Resection of Uterus, Open Approach (ICD-10-PCS; CPT 58150; principal; 2017-06-12 07:30)
DX: N93.8 Other specified abnormal uterine and vaginal bleeding (principal)
CPT/HCPCS: 58150; 36415; 36430; 80048; 81001; 85014; 85018; 85025; 86850; 96372; 96374; J0131; J2405; J2710; P9016

== ENCOUNTER → 2017-10-15 13:39 | Outpatient (CLI) | payer BC, SELFPAY ==
--- NOTE | 2017-10-15 | MM_ITS ---
MM Dig mamm DX unilat RT CAD, US breast RT complete INDICATION: Palpable abnormality in the upper outer right breast ORDERING PHYSICIAN: Kimi Marquez MD PATIENT AGE: 52 years COMPARISON: 02/18/2017 and 05/29/2015 TECHNIQUE: Standard images performed with probable resolving views and ultrasound of the right breast FINDINGS: There is average fibroglandular tissue. No malignant appearing masses or malignant appearing microcalcification is evident. A skin marker is placed over the upper outer aspect of the right breast where palpable abnormality is reported. No mammographic abnormalities are evident in this region. There is a 5 mm nodular opacity noted in the outer aspect of the right breast which appear to contain some central calcifications. Additional imaging of this area is suggested with spot compression mag views as well as rolled views and second look ultrasound at NO additional charge. There are calcifications in the retroareolar region which may form a somewhat ductal pattern. Spot compression mag views recommended. Right breast ultrasound: There was a vague area of decreased echogenicity at the 10:00 region of the right breast. This is only well seen in the transverse view. This may be due to an area of fatty tissue however, a second look ultrasound is suggested with direct physician supervision IMPRESSION: No discrete abnormality noted on the mammogram at the palpable area with questionable ultrasound findings. Indeterminate nodule with some calcification in the outer aspect of the right breast at 8:00 region. Indeterminate retroareolar calcifications for which spot compression mag views are needed Incomplete, additional imaging recommended BI-RADS Category: BI-RADS Category: 0 Need Additional Imaging Evaluation RECOMMENDED FOLLOW-UP: IMM - IMMEDIATE FOLLOW-UP RECOMMENDED Additional images of the right breast to include spot compression mag views, rolled cc views and second look right breast ultrasound all at no additional charge. An addendum will be added to this report when those images are obtained (A letter has been sent to the patient regarding results of the study.)
== END ==
PROVIDERS: Family Provider Family Medicine; PCP Family Medicine; Visit Provider Family Medicine
DX: N63.11 Unspecified lump in the right breast, upper outer quadrant (principal)
CPT/HCPCS: 76641; 77065

== ENCOUNTER → 2017-10-29 15:44 | Outpatient (CLI) | payer BC, SELFPAY | PROVIDERS: Family Provider Family Medicine; PCP Family Medicine; Visit Provider Family Medicine | DX: R92.8 Other abnormal and inconclusive findings on diagnostic imaging of breast (principal) ==

== ENCOUNTER → 2017-12-21 08:37 | Outpatient (CLI) | payer BC, SELFPAY ==
--- NOTE | 2017-12-21 08:43 | XR_ITS ---
XR knee RT 3V HISTORY: ITS.REASON: ACUTE PAIN OF RIGHT KNEE ORDERING PHYSICIAN: Alek Rodriguez MD PATIENT AGE: 52 years COMPARISON: None FINDINGS: No fracture or dislocation. No lytic or blastic change. Normal mineralization. No significant arthritic changes evident. No other significant findings IMPRESSION: Negative Knee
== END ==
PROVIDERS: PCP Family Medicine; Visit Provider Family Medicine
DX: M25.561 Pain in right knee (principal)
CPT/HCPCS: 73562

== ENCOUNTER → 2018-04-23 17:20 | Outpatient (CLI) | payer BC, SELFPAY | PROVIDERS: PCP Family Medicine; Visit Provider Family Medicine | DX: G47.33 Obstructive sleep apnea (adult) (pediatric) (principal) ==

== ENCOUNTER → 2018-04-29 08:23 | Outpatient (CLI) | payer BC, SELFPAY | PROVIDERS: PCP Family Medicine; Visit Provider Family Medicine | DX: G47.33 Obstructive sleep apnea (adult) (pediatric) (principal) | CPT/HCPCS: 95806 ==

== ENCOUNTER → 2018-08-24 16:54 | Outpatient (CLI) | payer BC, SELFPAY ==
--- NOTE | 2018-08-24 17:08 | MM_ITS ---
MM Dig screening mamm BI w/CAD CAD Screening COMPARISON: Digital mammograms with CAD 02/25/2017 and 05/29/2015 INDICATION: There is a history of breast cancer patient maternal aunt. There has been previous biopsy right breast for benign disease. . TECHNIQUE: Standard CC and MLO images were obtained. R2 CAD reviewed. FINDINGS: Scattered fibroglandular densities are seen in both breasts. Again noted are 2 biopsy clips upper outer quadrant right breast. There are few benign-appearing microcalcifications right breast. There is no new or suspicious lesion in either breast and there are no suspicious microcalcifications. IMPRESSION: Fibrofatty parenchyma with no suspicious lesion seen BI-RADS Category: 2 Benign Finding(s) RECOMMENDED FOLLOW-UP: 1YR - 1 YEAR FOLLOW-UP (A letter has been sent to the patient regarding results of the study.)
== END ==
PROVIDERS: PCP Family Medicine; Visit Provider Family Medicine
DX: Z12.31 Encounter for screening mammogram for malignant neoplasm of breast (principal); N60.19 Diffuse cystic mastopathy of unspecified breast
CPT/HCPCS: 77067

== ENCOUNTER → 2019-02-03 09:02 | Outpatient (CLI) | payer BC, SELFPAY ==
--- NOTE | 2019-02-03 09:14 | XR_ITS ---
PROCEDURE: XR WRIST LT MIN 3V CLINICAL INDICATION: Wrist pain COMPARISON: No exams were available for comparison FINDINGS: No fracture, dislocation, lytic change, or blastic change evident. No significant degenerative change IMPRESSION: No acute findings. Dictated by: Matt Leonard MD 02/03/2019 11:32 Electronically signed by Matt Leonard MD in [place] 02/03/2019 11:32
== END ==
PROVIDERS: PCP Family Medicine; Visit Provider Orthopaedic Surgery
DX: M25.532 Pain in left wrist (principal)
CPT/HCPCS: 73110

== ENCOUNTER → 2019-02-10 14:56 | Outpatient (CLI) | payer BC, SELFPAY ==
--- NOTE | 2019-02-10 15:01 | MR_ITS ---
PROCEDURE: MR WRIST LT WO/W CON CLINICAL INDICATION: Mass of wrist Bluish mass on the anterior aspect of the wrist increasing in size and tender COMPARISON: XR WRIST LT MIN 3V from 02/03/2019 TECHNIQUE: . Multiplanar multi echo sequences are performed without and with gadolinium enhancement FINDINGS: Along the anterior aspect of the left wrist there is a flat like subcutaneous area of altered signal intensity measuring 1.6 cm transverse, 1.3 cm longitudinal, and 0.5 cm in thickness. This is isointense on T1 and becomes hyperintense on T2. This is well-circumscribed this is in the subcutaneous region superficial to the flexor retinaculum and radial to the palmar branch of the ulnar nerve and the flexor carpi ulnaris tendon. This does show some increase in T2 signal and demonstrates uniform fairly intense contrast enhancement. No other significant anomalies are evident. No fracture, dislocation, IMPRESSION: Enhancing subcutaneous soft tissue mass along the volar aspect of the wrist as described above. This does demonstrate contrast enhancement and is not associated with the underlying tendons. Etiology is not certain. Differential diagnosis would include hemangioma, fibrous type lesion/fibroma, or nerve sheath type tumor. Dictated by: Matt Leonard MD 02/14/2019 07:20 Electronically signed by Matt Leonard MD in [place] 02/17/2019 10:00
== END ==
PROVIDERS: PCP Family Medicine; Visit Provider Orthopaedic Surgery
DX: R22.32 Localized swelling, mass and lump, left upper limb (principal)
CPT/HCPCS: 73223; A9576

== ENCOUNTER 2019-04-07 08:30 | Outpatient (RCR) | payer BC, SELFPAY | END 2019-04-07 08:35 | disposition home or self-care (01) | LOC: OT 08:30 | PROVIDERS: Visit Provider Orthopaedic Surgery | DX: M25.532 Pain in left wrist; D18.09 Hemangioma of other sites | CPT/HCPCS: 97110; 97140; 97165 ==

== ENCOUNTER → 2019-07-14 14:03 | Outpatient (CLI) | payer BC, SELFPAY ==
--- NOTE | 2019-07-14 14:08 | XR_ITS ---
PROCEDURE: XR FOOT WT BEARING LT 3V CLINICAL INDICATION: pain COMPARISON: FTR3 FOOT-RT-3 VIEWS from 11/25/2012 FINDINGS: No fracture or dislocation. No lytic or blastic change. There is normal mineralization. The joint spaces are well-preserved. No significant degenerative/arthritic changes. No erosive changes evident. Other findings:There is a mildly prominent calcaneal spur at 11 mm without erosive change. IMPRESSION: Calcaneal spur otherwise negative Dictated by: Matt Leonard MD 07/14/2019 15:11 Electronically signed by Matt Leonard MD in [facility] 07/14/2019 15:11
--- NOTE | 2019-07-14 14:08 | XR_ITS ---
PROCEDURE: XR FOOT WT BEARING RT 3V CLINICAL INDICATION: pain Plantar fasciitis, pain for 3 months COMPARISON: FTR3 FOOT-RT-3 VIEWS from 11/25/2012 FINDINGS: No fracture or dislocation. No lytic or blastic change. There is normal mineralization. The joint spaces are well-preserved. No significant degenerative/arthritic changes. No erosive changes evident. Other findings:There is a small calcaneal spur not significantly changed. IMPRESSION: No acute findings. Dictated by: Matt Leonard MD 07/14/2019 15:06 Electronically signed by Matt Leonard MD in [facility] 07/14/2019 15:06
== END ==
PROVIDERS: PCP Family Medicine; Visit Provider Nurse Practitioner
DX: M79.672 Pain in left foot (principal); M79.671 Pain in right foot
CPT/HCPCS: 73630

== ENCOUNTER → 2019-10-20 15:14 | Outpatient (CLI) | payer BC, SELFPAY ==
--- NOTE | 2019-10-20 15:26 | US_ITS ---
PROCEDURE: US THYROID CLINICAL INDICATION: THYROID NODULE COMPARISON: No exams were available for comparison FINDINGS: The right lobe and isthmus of the thyroid gland has been removed. The left lobe is 4.7 x 1.7 x 2.2 cm with multiple nodules. Nodule A upper pole hyperechoic 6 mm Nodule B upper pole hyperechoic at 7 mm Nodule C mid polar region at 1 x 0.7 cm with a cystic area medially Nodule D lower pole heterogeneous in nature 9 x 6 mm Nodule E lower pole 12 x 8 mm hypoechoic well-circumscribed without calcification. Nodule F 6 x 5 mm mostly cystic in nature. IMPRESSION: Enlarged left lobe of the thyroid gland with multinodular goiter Prior right thyroidectomy Dictated by: Matt Leonard MD 10/20/2019 18:21 Electronically signed by Matt Leonard MD in [facility] 10/20/2019 18:21
[2019-10-20 18:03] LABS: Chloride 100 mmol/L (98-107)
[2019-10-20 18:04] LABS: Sodium 137 mmol/L (136-145)
[2019-10-20 18:06] LABS: Alanine Aminotransferase 37 U/L (12-78); Alkaline Phosphatase 77 U/L (38-126); Aspartate Amino Transferase 34 U/L (14-36); Bilirubin,Total 1.2 mg/dl (0.2-1.3); Blood Urea Nitrogen 15 mg/dl (7-17); Carbon Dioxide 32 mmol/L (22.0-30.0); Estimated Glomerular Filt Rate 66 ml/min (>60); GFR (African American) 80 ML/MIN (>60)
[2019-10-20 18:07] LABS: Albumin Level 4.3 g/dl (3.5-5.0); Albumin/Globulin Ratio 1.4 (1.1-1.8); Calcium 9.5 mg/dl (8.4-10.2); Globulin 3.1 g/dL (1.3-3.2); Glucose 117 mg/dl (74-100); Total Protein,Serum 7.4 g/dl (6.3-8.2)
[2019-10-20 18:23] LABS: T4 (Thyroxine) 7.6 ug/dl (5.53-11.0)
[2019-10-20 18:36] LABS: Thyroid Stimulating Hormone 3.09 uIU/mL (0.465-4.68)
== END ==
PROVIDERS: PCP Family Medicine; Visit Provider Family Medicine
DX: E03.9 Hypothyroidism, unspecified (principal); I10 Essential (primary) hypertension
CPT/HCPCS: 36415; 76536; 80053; 84436; 84443

== ENCOUNTER → 2019-11-09 09:33 | Outpatient (CLI) | payer BC, SELFPAY ==
[2019-11-09 10:45] LABS: Blood Urea Nitrogen 19 mg/dl (7-17); Calcium 9.7 mg/dl (8.4-10.2); Estimated Glomerular Filt Rate 75 ml/min (>60); GFR (African American) 91 ML/MIN (>60)
[2019-11-09 11:01] LABS: Free T4 (Free Thyroxine) 1.14 ng/dl (0.78-2.19)
[2019-11-09 11:15] LABS: Thyroid Stimulating Hormone 4.97 uIU/mL (0.465-4.68)
[2019-11-10 09:12] LABS: Triiodothyronine (T3) Free 3.5 pg/mL (2.0-4.4)
[2019-11-11 17:10] LABS: Calcitonin <2.0 pg/mL (0.0-5.0)
== END ==
PROVIDERS: Visit Provider Otolaryngology
DX: E04.9 Nontoxic goiter, unspecified (principal); R13.10 Dysphagia, unspecified
CPT/HCPCS: 36415; 82308; 82310; 82565; 84439; 84443; 84481; 84520

== ENCOUNTER → 2019-11-24 08:56 | Outpatient (CLI) | payer BC, SELFPAY ==
--- NOTE | 2019-11-24 09:14 | FL_ITS ---
PROCEDURE: FL BARIUM SWALLOW CLINICAL INDICATION: dysphagia COMPARISON: No exams were available for comparison TECHNIQUE: In the upright position the patient was observed to swallow barium in both the AP and lateral view. The cervical esophagus was examined under fluoroscopy with images obtained. The patient was then placed prone in the right anterior oblique position and was observed to swallow barium with Valsalva technique . FLUOROSCOPY TIME: 6 seconds FINDINGS: Small hiatal hernia without reflux is noted. There is a nonobstructive distal esophageal Schatzki's ring. IMPRESSION: Small hiatal hernia reflux, nonobstructive distal esophageal Schatzki's ring Dictated by: Butch Kim 11/24/2019 09:58 Electronically signed by Butch Kim in [facility] 11/24/2019 09:58
--- NOTE | 2019-11-24 09:14 | CT_ITS ---
PROCEDURE: CT SOFT TISSUE NECK W CON CLINICAL HISTORY: swallowing difficulty COMPARISON: No exams were available for comparison TECHNIQUE: Oral Contrast: None IV Contrast: None Axial images obtained with sagittal and coronal reformats. All CT scans at the facility use one or more dose reduction, viz: automated exposure control, ma/kV adjustment per patient size (including targeted exams where dose is matched to indication, i.e. head), or iterative reconstruction technique. FINDINGS: Left thyromegaly with cystic goitrous changes are noted. Visualized lung apices and trachea is unremarkable except for an 8 millimeter calcified right upper lobe granuloma.. The remainder of the deep and superficial facial structures of the neck are unremarkable for mass lesions or significant adenopathy. Orbits, bony structures, and base of brain is unremarkable. IMPRESSION: Cystic goitrous changes of the left thyroid gland Dictated by: Butch Kim 11/24/2019 10:51 Electronically signed by Butch Kim in [facility] 11/24/2019 10:51
== END ==
PROVIDERS: PCP Family Medicine; Visit Provider Otolaryngology
DX: R13.10 Dysphagia, unspecified (principal); E04.9 Nontoxic goiter, unspecified
CPT/HCPCS: 70491; 74220; Q9967

== ENCOUNTER 2019-12-19 01:17 | Observation (INO) | payer BC, SELFPAY ==
[2019-12-19] VITALS (14 sets, daily range): BP systolic 105–147; BP diastolic 61–84; PULSE 73–101; RESP 15–20; TEMP 36.6–36.8; O2SAT 91–99; BMI 42.5; BMI 37.8; BMI 40.6
--- NOTE | 2019-12-19 01:28 | ECG_ITS ---
APPROVED REPORT Exam: Resting ECG HR:87 bpm ECG Measurements Heart Rate 87 AXES GA 108 P 3 QRSd 82 QRS 21 QT 370 T 34 QTc 445 <Conclusion> Sinus rhythm with short GA Otherwise normal ECG Electronically signed by : Partha Hernandez, 12/19/2019 17:36:54
--- NOTE | 2019-12-19 01:33 | XR_ITS ---
PROCEDURE: XR CHEST 2V CLINICAL HISTORY: ELEVATED BP Hypertension COMPARISON: CXR CHEST(2 VIEWS-NOT PORTABLE) from 02/15/2016 XR CHEST PORTABLE from 08/23/2019 FINDINGS: The cardiomediastinal silhouette and pulmonary vascularity are within normal limits. The lungs are clear without infiltrates, suspicious nodules, or pleural effusions. Calcified granulomas is present in the right upper lobe IMPRESSION: No acute findings. Dictated by: Matt Leonard MD 12/19/2019 08:02 Electronically signed by Matt Leonard MD in [place] 12/19/2019 08:02
--- NOTE | 2019-12-19 01:46 | HMH.EDCP ---
ED Disposition Clinical Impression: Obesity (BMI 30-39.9) Chest pain Qualifiers: Chest pain type: precordial pain Qualified Code(s): R07.2 - Precordial pain Disposition: Admitted as Observation Condition on Discharge: Good - Critical Care Critical Care Time: No Attestation: On 12/19/19, the high probability of a clinically significant, sudden or life threatening deterioration of the following system(s) required my full and direct attention, intervention and personal management. The time I documented below is in addition to time spent performing reported procedures but includes the following listed in this critical care notation. Medical Decision Making - Medical Records Medical records reviewed: Yes: I reviewed the patient's medical records. - [place] Inquiry Pt receiving controlled substance: No Vital Signs: 12/19/19 01:25 12/19/19 02:06 12/19/19 02:30 Temperature 97.8 F Temperature Source Oral Pulse Rate Pulse Rate [Right Brachial] 94 H 82 80 Respiratory Rate 16 15 15 Blood Pressure [Right Arm] 147/84 H 105/61 L 127/73 Blood Pressure Mean [Right Arm] 105 75 91 Blood Pressure Source [Right Arm] Automatic Cuff Automatic Cuff Automatic Cuff Blood Pressure Position [Right Arm] Sitting Sitting Sitting 02 Sat by Pulse Oximetry 98 96 98 Oxygen Delivery Method Room Air Room Air Room Air 12/19/19 03:00 12/19/19 03:30 12/19/19 04:12 Temperature Temperature Source Pulse Rate Pulse Rate [Right Brachial] 76 76 73 Respiratory Rate 15 15 19 Blood Pressure [Right Arm] 136/77 117/75 126/72 Blood Pressure Mean [Right Arm] 96 89 90 Blood Pressure Source [Right Arm] Automatic Cuff Automatic Cuff Automatic Cuff Blood Pressure Position [Right Arm] Sitting Sitting Sitting 02 Sat by Pulse Oximetry 98 98 98 Oxygen Delivery Method Room Air Room Air 12/19/19 05:04 12/19/19 05:24 Temperature Temperature Source Pulse Rate 76 Pulse Rate [Right Brachial] 81 Respiratory Rate 16 Blood Pressure [Right Arm] 120/71 Blood Pressure Mean [Right Arm] 87 Blood Pressure Source [Right Arm] Automatic Cuff Blood Pressure Position [Right Arm] Sitting 02 Sat by Pulse Oximetry 91 L Oxygen Delivery Method - Lab Data Lab results reviewed: Yes: I reviewed the patient's lab results. Lab Results 12/19/19 01:40: Troponin I < 0.01, TSH 5.05 H, Thyroxine (T4) 9.9 12/19/19 01:40: WBC 10.9 H, RBC 5.42 H, Hgb 14.9, Hct 45.3, MCV 83.5, MCH 27.5, MCHC 33.0, RDW 14.7, Plt Count 274, MPV 9.3, Neut % (Auto) 59.1, Lymph % (Auto) 33.6, [place] % (Auto) 4.8, Eos % (Auto) 1.8, Baso % (Auto) 0.8, Neut # (Auto) 6.4, Lymph # (Auto) 3.7, [place] # (Auto) 0.5, Eos # (Auto) 0.2, Baso # (Auto) 0.1 12/19/19 01:40: Sodium 138, Potassium 3.4 L, Chloride 101, Carbon Dioxide 28, Anion Gap 12.4, BUN 15, Creatinine 0.80, Estimated Creat Clear 118, Estimated GFR 75, Est GFR ( Amer) 91, Glucose 118 H, Calcium 9.7, Total Bilirubin 1.0, AST 36, ALT 41, Alkaline Phosphatase 98, Total Protein 8.3 H, Albumin 4.6, Globulin 3.7 H, Albumin/Globulin Ratio 1.2 12/19/19 01:40: SARS-CoV-2 IgG Ab (Rapid) Negative, SARS-CoV-2 IgM Ab (Rapid) Negative 12/19/19 01:40: NT-Pro-B Natriuret Pep 31.9 12/19/19 04:10: Troponin I < 0.01 Result diagrams: 12/19/19 01:40 12/19/19 01:40 Orders (Tests/Meds): ED MEDICATIONS Generic Name Dose Route Start Last Admin Trade Name Freq PRN Reason Stop Dose Admin Nitroglycerin 0.4 mg 12/19/19 01:43 12/19/19 01:40 Nitrostat 0.4mg Sl Tablet SL 01/18/20 01:42 1 tab [id number] PRN Administration Chest Pain Discontinued Medications Generic Name Dose Route Start Last Admin Trade Name Freq PRN Reason Stop Dose Admin Albuterol/Ipratropium 3 ml 12/19/19 04:57 12/19/19 05:03 Duoneb 3ml Neb IH 12/19/19 04:58 3 ml ONCE ONE Administration Aspirin 324 mg 12/19/19 01:43 12/19/19 01:44 Aspirin 81mg Chewable Tablet PO 12/19/19 01:44 324 mg ONCE ONE Administration Methylprednisolone So
[2019-12-19 01:48] LABS: Basophils # 0.1 K/mm3 (0-0.2); Basophils % 0.8 % (0.1-2.0); Eosinophils # 0.2 K/mm3 (0.0-0.4); Eosinophils % 1.8 % (0.1-12.0); Hematocrit 45.3 % (37.0-47.0); Hemoglobin 14.9 g/dL (12.2-16.2); Lymphocytes # 3.7 K/mm3 (0.7-4.5); Lymphocytes % 33.6 % (10-50); Mean Corpuscular Hemoglobin 27.5 pg (27.0-31.2); Mean Corpuscular Volume 83.5 fl (81-99); Mean Platelet Volume 9.3 fl (7.4-10.4); Monocytes # 0.5 K/mm3 (0.1-1.0); Monocytes % 4.8 % (1.7-9.3); Neutrophils # 6.4 K/mm3 (1.8-7.8); Neutrophils % 59.1 % (37.0-80.0); Platelet Count 274 K/mm3 (142-424); Red Blood Count 5.42 M/mm3 (4.20-5.40); Red Cell Distribution Width 14.7 % (11.5-17.5); White Blood Count 10.9 K/mm3 (4.8-10.8)
[2019-12-19 02:03] LABS: Alanine Aminotransferase 41 U/L (12-78); Albumin Level 4.6 g/dl (3.5-5.0); Albumin/Globulin Ratio 1.2 (1.1-1.8); Alkaline Phosphatase 98 U/L (38-126); Anion Gap 12.4 mEq/L (5-15); Aspartate Amino Transferase 36 U/L (14-36); Blood Urea Nitrogen 15 mg/dl (7-17); Calcium 9.7 mg/dl (8.4-10.2); Carbon Dioxide 28 mmol/L (22.0-30.0); Chloride 101 mmol/L (98-107); Creatinine Clearance Estimated 118 mL/min (50-200); Estimated Glomerular Filt Rate 75 ml/min (>60); GFR (African American) 91 ML/MIN (>60); Globulin 3.7 g/dL (1.3-3.2); Glucose 118 mg/dl (74-100); Potassium 3.4 mmoL/L (3.5-5.1); Sodium 138 mmol/L (136-145); Total Protein,Serum 8.3 g/dl (6.3-8.2)
--- NOTE | 2019-12-19 02:06 | PC.NURSE ---
pt sitting up on side of bed talking with jefferyrn
[2019-12-19 02:13] LABS: NT Pro Brain Natriuretic Pep. 31.9 pg/mL (0-125)
[2019-12-19 02:20] LABS: T4 (Thyroxine) 9.9 ug/dl (5.53-11.0)
[2019-12-19 02:21] LABS: Troponin I < 0.01 ng/ml (0.00-0.034)
[2019-12-19 02:24] LABS: Coronavirus 19 IgG Antibody Negative (Negative); Coronavirus 19 IgM Antibody Negative (Negative)
[2019-12-19 02:33] LABS: Thyroid Stimulating Hormone 5.05 uIU/mL (0.465-4.68)
--- NOTE | 2019-12-19 04:11 | PC.NURSE ---
sent blood to lab for second troponin
--- NOTE | 2019-12-19 04:14 | PC.NURSE ---
offered blanket at this time. pt accepts. continues to play on her phone.
[2019-12-19 04:50] LABS: Troponin I < 0.01 ng/ml (0.00-0.034)
--- NOTE | 2019-12-19 04:58 | PC.NURSE ---
verbal orders received from resp notified.
--- NOTE | 2019-12-19 05:50 | PC.NURSE ---
attempted to give report to mai hernandez. unable to take at this time due to her phone being improperly charged. will return call.
--- NOTE | 2019-12-19 05:56 | PC.NURSE ---
receiving nurse notified of negative rapid igg/igm blood test for covid. pt received a nasal swab for covid earlier this past week due to a direct contact on 12/03/19. she states she was negative. appropriate ppe worn per staff.
--- NOTE | 2019-12-19 06:11 | PC.NURSE ---
PT ARRIVED TO THE FLOOR VIA W/C FROM ED AT [id number].
--- NOTE | 2019-12-19 06:16 | PC.NURSE ---
Ravinder TERRY NOTIFIED OF CONSULT.
--- NOTE | 2019-12-19 07:13 | HMH.PHAVTE ---
[facility] Pharmacy VTE Monitoring - Patient Demographics Admission date: 12/19/19 Report Date: 12/19/19 Time: 07:13 Allergies/Adverse Reactions: Patient Allergies erythromycin base Allergy (Intermediate, Verified 12/01/19 10:10) I-HIVES Height: 1.55 m Weight: 90.718 kg Patient Problems: Current Active Problems Chest pain (Acute) Obesity (BMI 30-39.9) (Acute) - VTE Risk Labs: VTE Related Lab Results Hgb 14.9 g/dL (12.2-16.2) 12/19/19 01:40 Hct 45.3 % (37.0-47.0) 12/19/19 01:40 Plt Count 274 K/mm3 (142-424) 12/19/19 01:40 BUN 15 mg/dl (7-17) 12/19/19 01:40 Creatinine 0.80 mg/dl (0.52-1.04) 12/19/19 01:40 Estimated Creat Clear 118 mL/min (50-200) 12/19/19 01:40 VTE Score: 3 Clinical Trial Participant: No - Prophylaxis VTE Prophylaxis Ordered?: Yes Types of VTE Prophylaxis: TEDS Knee High
[2019-12-19 07:31] LABS: Basophils # 0.1 K/mm3 (0-0.2); Basophils % 0.4 % (0.1-2.0); Eosinophils # 0.1 K/mm3 (0.0-0.4); Eosinophils % 0.8 % (0.1-12.0); Hematocrit 42.8 % (37.0-47.0); Hemoglobin 14.2 g/dL (12.2-16.2); Lymphocytes # 1.8 K/mm3 (0.7-4.5); Lymphocytes % 14.8 % (10-50); Mean Corpuscular HGB Conc 33.3 g/dL (31.8-35.4); Mean Corpuscular Hemoglobin 27.6 pg (27.0-31.2); Mean Corpuscular Volume 82.9 fl (81-99); Mean Platelet Volume 9.3 fl (7.4-10.4); Monocytes # 0.3 K/mm3 (0.1-1.0); Monocytes % 2.5 % (1.7-9.3); Neutrophils # 9.6 K/mm3 (1.8-7.8); Neutrophils % 81.4 % (37.0-80.0); Platelet Count 245 K/mm3 (142-424); Red Blood Count 5.16 M/mm3 (4.20-5.40); Red Cell Distribution Width 14.8 % (11.5-17.5); White Blood Count 11.8 K/mm3 (4.8-10.8)
[2019-12-19 07:33] LABS: Chloride 99 mmol/L (98-107); Potassium 3.2 mmoL/L (3.5-5.1); Sodium 136 mmol/L (136-145)
[2019-12-19 07:36] LABS: Anion Gap 14.2 mEq/L (5-15); Blood Urea Nitrogen 16 mg/dl (7-17); Calcium 9.4 mg/dl (8.4-10.2); Carbon Dioxide 26 mmol/L (22.0-30.0); Cholesterol 223 mg/dl (140-200); Creatinine Clearance Estimated 145 mL/min (50-200); Estimated Glomerular Filt Rate 88 ml/min (>60); GFR (African American) 106 ML/MIN (>60); Glucose 170 mg/dl (74-100); Triglycerides 95 mg/dl (30-150); VLDL Cholesterol 19 mg/dL (0-40)
[2019-12-19 07:37] LABS: Chol/HDL Ratio 4.1 (1-3.5); HDL Cholesterol 54 mg/dl (40-60); Magnesium 1.8 mg/dl (1.6-2.3)
[2019-12-19 07:47] LABS: Direct LDL Cholesterol 150.36 mg/dL (100-129)
[2019-12-19 07:50] LABS: Troponin I < 0.01 ng/ml (0.00-0.034)
--- NOTE | 2019-12-19 07:53 | PC.NURSE ---
a&o x4. pt denies cp upon arrival to unit from ed. nitro paste remains intact on left upper chest. states she feels like she can't adequately catch her breath. no acute respiratory distress noted. pt sitting upright in bed, talking with this rn. o2 wnl. refused o2 at this time. bilateral lungs noted clear t/o upon auscultation. +1 non-pitting edema noted to ble. vss. remains safe. independent amb in room. call light within reach. will continue to monitor.
--- NOTE | 2019-12-19 08:00 | CA_ITS ---
APPROVED REPORT EXAM: Comprehensive 2D, Doppler, and color-flow Echocardiogram Ground Layer: Hermila Baugh RDCS Ht: 5 ft 1 in Wt: 200lbs BSA: 1.89 BP: 126/72 mmHg Indications: CP 2D Dimensions LVOT 2.04 cm (M/F) 1.5-2.5 M-Mode Dimensions RVDd 2.66 cm (0.9-2.6) LVDd 4.10 cm (3.5-5.7) LVDs 2.37 cm (3.5-5.7) IVSd 0.80 cm (0.6-1.1) PWd 0.89 cm (0.6-1.1) EF (Teich) 73.70% FS 42.20% EDV (Teich) 74.20 mL ESV (Teich) 19.50 mL LV Diastology E/A Ratio 0.90 Mitral Valve MV A Velocity 66.00 (40-130 cm/s) Left Ventricle Left atrium is normal size, left ventricle is normal size, there is no concentric left ventricular hypertrophy, visually estimated ejection fraction 55% with no regional wall motion abnormality, diastolic parameters are within normal range. Right Ventricle Right atrium and right ventricular normal size and contractility. Aortic Valve Aortic valve is grossly normal, there is no aortic stenosis or aortic insufficiency. Mitral Valve Mitral valve is grossly normal, there is mild mitral regurgitation. Tricuspid Valve Tricuspid valve is grossly normal, there is mild tricuspid regurgitation, tricuspid regurgitation jet velocity is inadequate for calculation of the right ventricular systolic pressure. Pulmonic Valve Pulmonic valve is poorly visualized. Great Vessels Aortic root is normal size. Pericardium No significant pericardial effusion noted. Conclusion 1. Normal left ventricular size, preserved left ventricular systolic function, visually estimated ejection fraction 55% with no regional wall motion abnormality. Diastolic parameters are within normal range. 2. Mild mitral and tricuspid regurgitation. 3. No significant pericardial effusion noted. Electronically signed by : Steffen Mayo, 12/19/2019 19:36:30
--- NOTE | 2019-12-19 08:15 | HMH.PHAINT ---
MEDICATION RECONCILIATION COMPLETED ON PATIENT USING EXTERNAL FILL HISTORY FROM PHARMACY. -ZEFERINO WAGNER, DAYNED
--- NOTE | 2019-12-19 08:54 | HMH.HP ---
*Admission Date: 12/19/19 *Chief complaint: high BP *History of present illness: Ms. Holt is a 54-year-old female with a history of hypertension, hyperlipidemia, sleep apnea, depression and anxiety who presented to [facility] ER after experiencing hypertension at her workplace. Patient states that she had an episode of chest tightness prior to going to work that occurred about 1800. She described not being able to get a good breath. She did feel somewhat dizzy and had a blood pressure check at work at which time it was greater than 170/118. Patient did receive a Nitrostat 0.4 mg sublingually, a DuoNeb treatment, aspirin 81 mg, and Solu-Medrol 125 mg IV, as well as nitroglycerin paste in the emergency room. Blood pressures were noted to be 147/84 down to 105/61. TSH was slightly elevated at 5.05 and troponin I's were negative x3. Chest x-ray showed no acute findings. Echocardiogram has been ordered and is pending. Since arriving to her room on the medical floor patient has been complaining of a headache. She has no chest discomfort at present. Cardiology is to see her today. Blood pressure at present is 137/88. Potassium is slightly low at 3.2. Cholesterol profile shows total cholesterol of 223 with an LDL of 150.36 and triglycerides of 95. [facility] History Medical History: Reports:: Anxiety, Depression, Hypertension Denies:: Cancer, Diabetes Mellitus Type 1, Diabetes Mellitus Type 2, Internal Pacemaker, MRSA, Seizures *Have you ever received a pneumonia vaccine?: No *Have you received a flu vaccine this season?: No Other Medical History: Reports: Hypothyroidism, Thyroid Disease (goiter). Denies: Blood Transfusion Reaction, Chemotherapy ( with partial thyroidectomy) Other Surgeries: Yes: Colonoscopy, , Dilation and Curettage, Hysterectomy-Total, Plastic Surgery, Thyroidectomy, Other. 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 Review of Systems - Constitutional Reports headache(s), Denies fever(s) - Eyes Comments: sometimes has blurred vision - ENT Reports headache(s), Reports post nasal drip, Denies dizziness, Denies ear pain, Denies sore throat - *Cardiovascular Reports chest pain (chest tightness), Reports shortness of breath (hard to catch a deep breath) - *Respiratory Reports shortness of breath, Denies chest congestion, Denies cough - *Gastrointestinal Denies abdominal pain, Denies change in bowel habits, Denies constipation, Denies heartburn, Denies loose stools, Denies nausea, Denies vomiting - *Genitourinary Comments: she does not feel that she voids enough with the 2 diuretics - *Musculoskeletal Denies joint pain Comments: usually stands for 12 hours with her job - *Neurologic Reports headache(s) (after nitropaste placed), Denies confusion, Denies dizziness, Denies seizure-like activity Meds Home Medications Medication Instructions Recorded Confirmed Type Triamterene/Hydrochlorothiazid 1 each PO DAILY 06/16/17 12/19/19 History [Dyazide 37.5-25 Capsule] Levothyroxine Sodium 75 mcg PO DAILY 02/21/19 12/19/19 History [Levothyroxine 75mcg (0.075mg) Tab] Omeprazole Magnesium 20 mg PO BID 12/19/19 12/19/19 History Spironolactone [Spironolactone 25 mg PO DAILY 12/19/19 12/19/19 History 25mg Tablet] Allergies Allergy/AdvReac Type Severity Reaction Status Date / Time erythromycin base Allergy Intermediate I-HIVES Verified 12/01/19 10:10 Exam Vital signs and Labs f
--- NOTE | 2019-12-19 10:11 | HMH.CNCARD ---
History of Present Illness Consult date: 12/19/19 Requesting physician: Kimi Marquez Consult reason: chest pain Chief complaint: CP, SOA, lightheadedness Additional Medical History:: 1. Hypertension 2. Remote tobacco use, [id number] history, discontinued 17 years ago 3. Obesity 4. History of anxiety 5. Hypothyroidism 6. GERD 7. History of sleep apnea, intolerant of CPAP therapy History of present illness: Ms. Holt is a 54-year-old female with a history of hypertension, hyperlipidemia, sleep apnea, depression and anxiety who presented to [facility] ER after experiencing hypertension at her workplace. Patient states that she had an episode of chest tightness prior to going to work that occurred about 1800. She described not being able to get a good breath. She did feel somewhat dizzy and had a blood pressure check at work at which time it was greater than 170/118. Patient did receive a Nitrostat 0.4 mg sublingually, a DuoNeb treatment, aspirin 81 mg, and Solu-Medrol 125 mg IV, as well as nitroglycerin paste in the emergency room. Blood pressures were noted to be 147/84 down to 105/61. TSH was slightly elevated at 5.05 and troponin I's were negative x3. Chest x-ray showed no acute findings. Echocardiogram has been ordered and is pending. Since arriving to her room on the medical floor patient has been complaining of a headache. She has no chest discomfort at present. Cardiology is to see her today. Blood pressure at present is 137/88. Potassium is slightly low at 3.2. Cholesterol profile shows total cholesterol of 223 with an LDL of 150.36 and triglycerides of 95. The above per Martha Blackmon APRN for Dr. Marquez Patient confirms onset of heaviness in the chest with inability to obtain a deep breath while at work. Blood pressure noted to be 170/118 mmHg. Improvement but not resolution of symptoms obtained with combination of meds as noted above in route to the ER. Patient continues to have some mild chest discomfort now and the inability to obtain a deep breath. Troponins have returned normal x3 overnight. EKG is sinus rhythm with no acute changes and preliminary echocardiogram shows preserved ejection fraction with no significant evidence of diastolic dysfunction or valvular heart disease. Patient states she has gained about 25 pounds over the last 3 to 6 months. She does relate taking both spironolactone and Maxide at home. [facility] History Medical History: Reports:: Anxiety, Depression, Hypertension Denies:: Cancer, Diabetes Mellitus Type 1, Diabetes Mellitus Type 2, Internal Pacemaker, MRSA, Seizures *Have you ever received a pneumonia vaccine?: No *Have you received a flu vaccine this season?: No Other Medical History: Reports: Hypothyroidism, Thyroid Disease (goiter). Denies: Blood Transfusion Reaction, Chemotherapy ( with partial thyroidectomy) Other Surgeries: Yes: Colonoscopy, , Dilation and Curettage, Hysterectomy-Total, Plastic Surgery, Thyroidectomy, Other. 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
--- NOTE | 2019-12-19 15:38 | HMH.PHAINT ---
PATIENT WAS COUNSELED ON NEW MEDICATIONS: FUROSEMIDE, IRBESARTAN, METOPROLOL, AND LEVOTHYROXINE (INCREASE IN DOSE). THE PATIENT WILL DISCONTINUE ALL HOME MEDICATIONS EXCEPT OMEPRAZOLE. THE PATIENT DID NOR HAVE ANY QUESTIONS.
--- NOTE | 2019-12-19 21:42 | HMH.DCSUM ---
General - General Admission date:: 12/19/19 Discharge date: 12/19/19 HPI HPI: Ms. Holt is a 54-year-old female with a history of hypertension, hyperlipidemia, sleep apnea, depression and anxiety who presented to [facility] ER after experiencing hypertension at her workplace. Patient states that she had an episode of chest tightness prior to going to work that occurred about 1800. She described not being able to get a good breath. She did feel somewhat dizzy and had a blood pressure check at work at which time it was greater than 170/118. Patient did receive a Nitrostat 0.4 mg sublingually, a DuoNeb treatment, aspirin 81 mg, and Solu-Medrol 125 mg IV, as well as nitroglycerin paste in the emergency room. Blood pressures were noted to be 147/84 down to 105/61. TSH was slightly elevated at 5.05 and troponin I's were negative x3. Chest x-ray showed no acute findings. Echocardiogram was ordered. Hospital Course Hospital Course: The patient began complaining of a headache. She had no further chest discomfort. Cardiology was consulted. Her potassium was low and was replaced. She was noted to still be taking phentermine and this was discontinued. She was seen in consultation by cardiology. Her troponins were normal x3 and her echo showed a preserved ejection fraction. Her EKG showed no acute ST segment changes. They suspected the patient had a component of diastolic dysfunction and recommended discontinuing her spironolactone and Maxide and switching her to Lasix 40 mg daily along with losartan 50 mg daily and metoprolol XL 25 mg at night. They felt she could be discharged home with outpatient work-up including a stress test in the near future. Patient was discharged home. Objective Vital signs: Temp Pulse Resp BP Pulse Ox 98.0 F 101 H 20 137/80 99 12/19/19 08:00 12/19/19 12:00 12/19/19 08:00 12/19/19 08:00 12/19/19 08:00 Narrative: - Constitutional no acute distress - *Routine HEENT Exam Head: Present: normocephalic, atraumatic Eye: Present: PERRL. Absent: conjunctival icterus, scleral injection ENT: Present: mucous membranes moist, oropharynx clear, nares patent - *Routine Neck Exam Present: supple. Absent: JVD, carotid bruit, lymphadenopathy, thyromegaly, tenderness - Routine Chest/Breast/Axilla Exam Chest wall: Absent: tenderness - *Routine Respiratory Exam Present: CTA bilaterally (A&P) - *Routine Cardiovascular Exam Present: RRR - *Routine Abdominal Exam Present: soft, normoactive bowel sounds. Absent: tenderness, distended - *Routine Extremities Exam Present: pulses intact. Absent: edema, calf tenderness - *Routine Neurological Exam Present: alert, oriented X3 Results Labs on day of discharge: Labs from last 24 hours 12/19/19 12/19/19 12/19/19 07:18 07:18 07:18 WBC 11.8 H RBC 5.16 Hgb 14.2 Hct 42.8 MCV 82.9 MCH 27.6 MCHC 33.3 RDW 14.8 Plt Count 245 MPV 9.3 Neut % (Auto) 81.4 H Lymph % (Auto) 14.8 [place] % (Auto) 2.5 Eos % (Auto) 0.8 Baso % (Auto) 0.4 Neut # (Auto) 9.6 H Lymph # (Auto) 1.8 Free[place] # (Auto) 0.3 Eos # (Auto) 0.1 Baso # (Auto) 0.1 Sodium 136 Potassium 3.2 L Chloride 99 Carbon Dioxide 26 Anion Gap 14.2 BUN 16 Creatinine 0.70 Estimated Creat Clear 145 Estimated GFR 88 Est GFR ( Amer) 106 Glucose 170 H D Hemoglobin A1c 6.0 Calcium 9.4 Magnesium 1.8 Total Bilirubin AST ALT Alkaline Phosphatase Troponin I NT-Pro-B Natriuret Pep Total Protein Albumin Globulin Albumin/Globulin Ratio Triglycerides 95 Cholesterol 223 H LDL Cholesterol Direct 150.36 H VLDL Cholesterol 19 HDL Cholesterol 54 Cholesterol/HDL Ratio 4.1 H TSH Thyroxine (T4) SARS-CoV-2 IgG Ab (Rapid) SARS-CoV-2 IgM Ab (Rapid) 12/19/19 12/19/19 12/19/19 07:18 04:10 01:4
== END 2019-12-19 16:15 | disposition home or self-care (01) ==
LOC: ER 01:49 → 2ND 05:40
PROVIDERS: Nurse Practitioner Family; Admitting Provider Family Medicine; Emergency Provider Emergency Medicine; PCP Family Medicine; Visit Provider Family Medicine
DX: I10 Essential (primary) hypertension (principal); E03.9 Hypothyroidism, unspecified; E78.5 Hyperlipidemia, unspecified; Z87.891 Personal history of nicotine dependence; E87.6 Hypokalemia; F41.9 Anxiety disorder, unspecified; R73.09 Other abnormal glucose; Z79.899 Other long term (current) drug therapy; R07.9 Chest pain, unspecified
CPT/HCPCS: 36415; 71046; 80048; 80053; 80061; 83036; 83735; 83880; 84436; 84443; 84484; 85025; 86328; 93005; 93306; 96374; 99284; G0378

== ENCOUNTER → 2020-01-12 15:02 | Outpatient (CLI) | payer SELFPAY ==
--- NOTE | 2020-01-12 15:02 | CT_ITS ---
PROCEDURE: CT HEART W CALCIUM SCORE CLINICAL HISTORY: screening for heart disease COMPARISON: No exams were available for comparison TECHNIQUE: Axial images obtained with sagittal and coronal reformats. All CT scans at the facility use one or more dose reduction, viz: automated exposure control, ma/kV adjustment per patient size (including targeted exams where dose is matched to indication, i.e. head), or iterative reconstruction technique. FINDINGS: Coronary artery calcium score is 0. No identifiable calcific plaque is evident. Very low cardiovascular disease risk. Incidental note made a few calcified nodes and a calcified granuloma in the right upper lobe IMPRESSION: No identifiable calcific plaque with very low cardiovascular disease risk Dictated by: Matt Leonard MD 01/13/2020 12:15 Matt Leonard MD in [place] 01/13/2020 12:15
== END ==
PROVIDERS: PCP Family Medicine; Visit Provider Internal Medicine Cardiovascular Disease
DX: Z13.6 Encounter for screening for cardiovascular disorders (principal); R07.2 Precordial pain; R60.0 Localized edema; E66.9 Obesity, unspecified; I10 Essential (primary) hypertension; G47.33 Obstructive sleep apnea (adult) (pediatric); G47.9 Sleep disorder, unspecified; R40.0 Somnolence
CPT/HCPCS: 75571

== ENCOUNTER → 2020-02-17 15:37 | Outpatient (CLI) | payer BC, SELFPAY ==
--- NOTE | 2020-02-17 15:44 | MM_ITS ---
PROCEDURE: MM DIG SCREENING MAMM BI W/CAD Digital Breast Tomosynthesis Included CLINICAL INDICATION: ROUTINE There is a history of breast cancer in the patient's maternal aunt. There has been a previous biopsy right breast for benign disease. COMPARISON: MG,US DMDXUR DIG MAMM-DX UNI-RT from 06/13/2015 MG DMSB DIG MAMM-SCREEN BASILIA W/CAD from 02/25/2017 MG DXRT MM Dig mamm DX unilat RT CAD from 10/15/2017 MG SCBI MM Dig screening mamm BI w/CAD from 08/24/2018 TECHNIQUE: Standard CC and MLO images and 3D Tomosynthesis was obtained. R2 CAD reviewed. FINDINGS: Scattered fibroglandular densities are seen throughout both breast on a background of fatty breast parenchyma. There has been some progressive fatty involution of the breast parenchyma since the previous 2 studies. There is a biopsy clip upper outer quadrant right breast with an associated density consistent with post biopsy scarring. There is a small asymmetric density just deep to the nipple of the right breast with a few indeterminate microcalcifications. Recommend the patient return for spot compression magnification views and ultrasound for additional evaluation. There are normal appearing nodes in both axilla. IMPRESSION: Fibrofatty parenchyma with asymmetric density and possibly associated microcalcifications BI-RAD Category: 0 Need Additional Imaging Evaluation FOLLOW-UP: IMM Immediate Follow-up Recommended (A letter has been sent to the patient regarding results of the study.) Dictated by: Dr. Tone Costa MD 02/20/2020 14:03 Dr. Tone Costa MD in [place] 02/20/2020 14:03
== END ==
PROVIDERS: PCP Family Medicine; Visit Provider Family Medicine
DX: Z12.31 Encounter for screening mammogram for malignant neoplasm of breast (principal)
CPT/HCPCS: 77063; 77067

== ENCOUNTER → 2020-02-24 13:40 | Outpatient (CLI) | payer BC, SELFPAY ==
--- NOTE | 2020-02-24 13:43 | US_ITS ---
PROCEDURE: MM DIG MAMM DX UNILAT RT CAD Digital Breast Tomosynthesis Included CLINICAL INDICATION: ABN MAMM Follow-up abnormal mammogram COMPARISON: MG DMDB DIG MAMM-DX BASILIA from 05/29/2015 MG,US DMDXUR DIG MAMM-DX UNI-RT from 06/13/2015 MG DXRT MM Dig mamm DX unilat RT CAD from 10/15/2017 MG SCBI MM Dig screening mamm BI w/CAD from 08/24/2018 MG MM DIG SCREENING MAMM BI W/CAD from 02/17/2020 US US BREAST RT COMPLETE from 02/24/2020 TECHNIQUE: Standard CC and MLO images and 3D Tomosynthesis was obtained. R2 CAD reviewed. FINDINGS: Mag views are obtained of the right breast. There are several small clusters of microcalcifications. On the CC view these have a smudgy appearance.. Some of the calcifications of interest on the previous mammogram do appear to floor covering layer as milk of calcium on the mL view. These are indeterminate and six-month follow-up is suggested. Clips are present in the upper aspect of the right breast. The nodular area of interest on the screening exam appears to compress out somewhat with some underlying probable small cystic areas with milk of calcium. Right breast ultrasound: 5 x 3 mm cyst is present behind the nipple. No suspicious solid lesions are evident. IMPRESSION: Probably benign findings. There are some indeterminate calcifications which most appear to represent milk of calcium. Asymmetric density is probably related overlying fibroglandular tissue and small cyst. BI-RAD Category: 3 Probably Benign Finding Short Term Follow-up FOLLOW-UP: 3M 3 Month Follow-up (A letter has been sent to the patient regarding results of the study.) Dictated by: Matt Leonard MD 03/01/2020 10:04 Matt Leonard MD in [place] 03/01/2020 10:04
== END ==
PROVIDERS: PCP Family Medicine; Visit Provider Nurse Practitioner Family
DX: R92.8 Other abnormal and inconclusive findings on diagnostic imaging of breast (principal)
CPT/HCPCS: 76641; 77061; 77065; G0279

== ENCOUNTER → 2020-05-07 13:42 | Outpatient (CLI) | payer BC, SELFPAY ==
[2020-05-07 17:54] LABS: Basophils # 0.1 K/mm3 (0-0.2); Basophils % 1.1 % (0.1-2.0); Eosinophils # 0.1 K/mm3 (0.0-0.4); Eosinophils % 1.2 % (0.1-12.0); Hematocrit 46.3 % (37.0-47.0); Hemoglobin 15.4 g/dL (12.2-16.2); Lymphocytes # 2.1 K/mm3 (0.7-4.5); Lymphocytes % 33.2 % (10-50); Mean Corpuscular HGB Conc 33.2 g/dL (31.8-35.4); Mean Corpuscular Hemoglobin 29.7 pg (27.0-31.2); Mean Corpuscular Volume 89.3 fl (81-99); Mean Platelet Volume 10.5 fl (7.4-10.4); Monocytes # 0.7 K/mm3 (0.1-1.0); Monocytes % 11.3 % (1.7-9.3); Neutrophils # 3.3 K/mm3 (1.8-7.8); Neutrophils % 53.2 % (37.0-80.0); Platelet Count 264 K/mm3 (142-424); Red Blood Count 5.18 M/mm3 (4.20-5.40); Red Cell Distribution Width 13.7 % (11.5-17.5); White Blood Count 6.2 K/mm3 (4.8-10.8)
[2020-05-10 09:14] LABS: Covid-19 Nasal PCR Sendout Lex INDETERMINATE
== END ==
PROVIDERS: PCP Family Medicine; Visit Provider Nurse Practitioner Family
DX: Z03.818 Encounter for observation for suspected exposure to other biological agents ruled out (principal)
CPT/HCPCS: 36415; 85025; 87275; 87276; U0004

== ENCOUNTER → 2020-05-10 15:02 | Outpatient (CLI) | payer BC, SELFPAY ==
[2020-05-10 17:10] LABS: Coronavirus 19 IgG Antibody Negative (Negative); Coronavirus 19 IgM Antibody Negative (Negative)
== END ==
PROVIDERS: PCP Family Medicine; Visit Provider Nurse Practitioner Family
DX: Z03.818 Encounter for observation for suspected exposure to other biological agents ruled out (principal)
CPT/HCPCS: 86328

== ENCOUNTER → 2020-05-11 14:35 | Outpatient (CLI) | payer BC, SELFPAY ==
--- NOTE | 2020-05-11 14:39 | XR_ITS ---
PROCEDURE: XR CHEST PORTABLE CLINICAL HISTORY: COVID OUPATIENT Cough COMPARISON: CR CXR CHEST(2 VIEWS-NOT PORTABLE) from 02/15/2016 CR XR CHEST PORTABLE from 08/23/2019 CR XR CHEST 2V from 12/19/2019 FINDINGS: The cardiomediastinal silhouette and pulmonary vascularity are within normal limits. Patchy ground-glass infiltrate is present in the left upper lobe. There are 2 nodules in the right upper lobe which are stable No acute bony abnormalities. IMPRESSION: Patchy ground-glass infiltrate in the left upper lobe which may be seen with Covid19 pneumonia Dictated by: Matt Leonard MD 05/11/2020 15:21 Matt Leonard MD in [place] 05/11/2020 15:21
[2020-05-11 15:49] LABS: Basophils # 0.1 K/mm3 (0-0.2); Basophils % 0.8 % (0.1-2.0); Eosinophils # 0.1 K/mm3 (0.0-0.4); Eosinophils % 0.8 % (0.1-12.0); Hematocrit 45.7 % (37.0-47.0); Hemoglobin 15.7 g/dL (12.2-16.2); Lymphocytes # 2.4 K/mm3 (0.7-4.5); Mean Corpuscular HGB Conc 34.5 g/dL (31.8-35.4); Mean Corpuscular Hemoglobin 29.6 pg (27.0-31.2); Mean Platelet Volume 9.9 fl (7.4-10.4); Monocytes # 0.5 K/mm3 (0.1-1.0); Monocytes % 6.9 % (1.7-9.3); Neutrophils # 4.5 K/mm3 (1.8-7.8); Neutrophils % 59.4 % (37.0-80.0); Platelet Count 285 K/mm3 (142-424); Red Blood Count 5.31 M/mm3 (4.20-5.40); Red Cell Distribution Width 13.4 % (11.5-17.5); White Blood Count 7.6 K/mm3 (4.8-10.8)
[2020-05-11 16:04] LABS: Adenovirus,PCR Not Detected (NotDetected); Bordetella Pertussis Not Detected (NotDetected); Chlamydophila Pneumoniae, PCR Not Detected (NotDetected); Coronavirus 229E Not Detected (NotDetected); Coronavirus NL63 Not Detected (NotDetected); Coronavirus OC43 Not Detected (NotDetected); Coronovirus HKU1,PCR Not Detected (NotDetected); Human Metapneumovirus Not Detected (NotDetected); Influenza A, PCR Not Detected (NotDetected); Influenza AH1, 2009 Not Detected (NotDetected); Influenza AH1, PCR Not Detected (NotDetected); Influenza AH3,PCR Not Detected (NotDetected); Influenza B, PCR Not Detected (NotDetected); Mycoplasma Pneumoniae, PCR Not Detected (NotDetected); Parainfluenza 1, PCR Not Detected (NotDetected); Parainfluenza 2, PCR Not Detected (NotDetected); Parainfluenza 3, PCR Not Detected (NotDetected); Parainfluenza 4, PCR Not Detected (NotDetected); Respiratory Syncytial Virus Not Detected (NotDetected); Rhinovirus/Enterovirus Not Detected (NotDetected)
[2020-05-12 09:25] LABS: Coronavirus 19, PCR Detected (NotDetected)
== END ==
PROVIDERS: PCP Family Medicine; Visit Provider Physician Assistant
DX: Z20.828 Contact with and (suspected) exposure to other viral communicable diseases (principal); U07.1 COVID-19
CPT/HCPCS: 36415; 71045; 85025; 87581; 87633; 87798

== ENCOUNTER → 2020-06-05 14:40 | Outpatient (CLI) | payer BC, SELFPAY ==
--- NOTE | 2020-06-05 | US_ITS ---
PROCEDURE: MM DIG MAMM DX UNILAT RT CAD Digital Breast Tomosynthesis Included RIGHT BREAST ULTRASOUND WITH AXILLA CLINICAL INDICATION: 3 MONTH F/U COMPARISON: MG SCBI MM Dig screening mamm BI w/CAD from 08/24/2018 MG MM DIG SCREENING MAMM BI W/CAD from 02/17/2020 MG MM DIG MAMM DX UNILAT RT CAD from 02/24/2020 US US BREAST RT COMPLETE from 02/24/2020 US US BREAST RT COMPLETE from 06/05/2020 TECHNIQUE: Standard images performed along with spot compression Mag views and right breast ultrasound FINDINGS: There is average fibroglandular tissue. There are several clusters of calcification noted. In the medial aspect of the right breast there is a continued cluster calcifications associated with nodular density. A few of these calcifications are somewhat amorphous on the Mag views under somewhat worrisome on the brunilda images.. These are somewhat worrisome and biopsy is suggested. In the medial aspect of the right breast a developing nodular density is noted with calcifications somewhat better seen on the brunilda images. Biopsy of this area also suggested. Right breast ultrasound: There is a tiny cyst the retroareolar region. No suspicious sonographic abnormalities are apparent. IMPRESSION: Suspicious clusters of calcification both medial and lateral aspect of the right breast for which stereotactic biopsy is suggested. BI-RAD Category: 4 Suspicious Abnormality - Biopsy Considered FOLLOW-UP: BIO Biopsy Recommended (A letter has been sent to the patient regarding results of the study.) Dictated by: Matt Leonard MD 06/13/2020 10:57 Matt Leonard MD in [place] 06/13/2020 10:57
== END ==
PROVIDERS: PCP Family Medicine; Visit Provider Family Medicine
DX: R92.8 Other abnormal and inconclusive findings on diagnostic imaging of breast (principal)
CPT/HCPCS: 76641; 77061; 77065; G0279

== ENCOUNTER → 2020-06-28 09:33 | Outpatient (CLI) | payer BC, SELFPAY ==
--- NOTE | 2020-06-28 | MM_ITS ---
PROCEDURE: PROCEDURE: MM STEREOTACTIC LOC RT MM STEREOTACTIC LOC RT x2 MAMMO CLIP PLACEMENT. And SURGICAL SPECIMEN x2 CLINICAL INDICATION: NEOPLASM OF UNCERTAIN BEHAVIOR OF RT BREAST Abnormal mammogram with suspicious breast calcifications at 10 o'clock and 2 o'clock.. COMPARISON: MG MM DIG SCREENING MAMM BI W/CAD from 02/17/2020 MG MM DIG MAMM DX UNILAT RT CAD from 02/24/2020 MG MM DIG MAMM DX UNILAT RT CAD from 06/05/2020 MG MM CLIP PLACEMENT RT from 06/28/2020 MG MM SURGICAL SPECIMEN RT from 06/28/2020 TECHNIQUE: Preop sedation was given with 1 mg alprazolam and 7.5 mg hydrocodone by mouth. Following obtaining informed consent and time-out patient was placed in the stereotactic unit. There are 2 areas of calcification which are suspicious. Using standard stereotactic technique both of these areas were localized and under aseptic conditions and local anesthesia with 1 percent buffered lidocaine and deeper anesthesia with lidocaine mixed with epinephrine, skin mychal was performed and mammotome needle inserted. Multiple mammotome biopsies were obtained. Specimen radiograph demonstrated calcifications of interest. Non ferromagnetic clips were placed to jane the area of biopsy x2. The patient tolerated the procedure well without evidence of immediate complications and left radiology suite in stable condition. Surgical specimen 10 o'clock and 2 o'clock. Both specimens demonstrated calcifications of interest. FINDINGS: Pathology: Calcifications at 2 o'clock: Non proliferative fibrocystic change with apocrine metaplasia and focal fat necrosis. Microcalcifications identified. Negative for in situ and invasive malignancy. Pathology calcifications at 10 o'clock: Non proliferative fibrocystic change with apocrine metaplasia and focal fat necrosis. Microcalcifications identified. Negative for in situ and invasive malignancy IMPRESSION: Successful stereotactic directed biopsy x2 of the right breast. Both areas show benign findings negative for DCIS and invasive malignancy. Recommend follow-up mammogram in 6 months per routine protocol. Mammo clip placement: There are postsurgical changes with post biopsy changes noted. New clip is present at the 2 o'clock region near the area low a and at the 10 o'clock region in the upper outer right breast. The areas of calcification have been removed. Impression: BI-RAD Category: 2 Benign Finding(s) FOLLOW-UP: 6M 6Month Follow-up (A letter has been sent to the patient regarding results of the study.) Dictated by: Matt Leonard MD 07/02/2020 17:48 Matt Leonard MD in [place] 07/02/2020 17:48 Dictated by: Matt Leonard MD 07/13/2020 12:25 Matt Leonard MD in [place] 07/13/2020 12:25
== END ==
LOC: RAD 09:36
PROVIDERS: PCP Family Medicine; Visit Provider Family Medicine
DX: R92.0 Mammographic microcalcification found on diagnostic imaging of breast (principal); D48.61 Neoplasm of uncertain behavior of right breast
CPT/HCPCS: 19081; 76098; 77065

== ENCOUNTER → 2020-10-24 11:25 | Outpatient (CLI) | payer BC, SELFPAY ==
[2020-10-24 12:25] LABS: Basophils # 0.1 K/mm3 (0-0.2); Basophils % 0.9 % (0.1-2.0); Eosinophils # 0.3 K/mm3 (0.0-0.4); Eosinophils % 4.1 % (0.1-12.0); Hemoglobin 13.7 g/dL (12.2-16.2); Lymphocytes % 28.4 % (10-50); Mean Corpuscular HGB Conc 32.7 g/dL (31.8-35.4); Mean Corpuscular Hemoglobin 27.9 pg (27.0-31.2); Mean Corpuscular Volume 85.4 fl (81-99); Mean Platelet Volume 10.1 fl (7.4-10.4); Monocytes # 0.4 K/mm3 (0.1-1.0); Monocytes % 5.9 % (1.7-9.3); Neutrophils # 4.2 K/mm3 (1.8-7.8); Neutrophils % 60.7 % (37.0-80.0); Platelet Count 231 K/mm3 (142-424); Red Blood Count 4.92 M/mm3 (4.20-5.40); Red Cell Distribution Width 13.3 % (11.5-17.5); White Blood Count 6.9 K/mm3 (4.8-10.8)
== END ==
PROVIDERS: PCP Family Medicine; Visit Provider Nurse Practitioner
DX: Z20.822 Contact with and (suspected) exposure to COVID-19 (principal)
CPT/HCPCS: 36415; 85025; U0003

== ENCOUNTER → 2020-12-11 14:26 | Outpatient (CLI) | payer BC, SELFPAY ==
--- NOTE | 2020-12-11 14:33 | MM_ITS ---
PROCEDURE: MM DIG MAMM DX UNILAT RT CAD Digital Breast Tomosynthesis Included CLINICAL INDICATION: ABN MAMM Follow-up right breast biopsy COMPARISON: MG MM DIG SCREENING MAMM BI W/CAD from 02/17/2020 MG MM DIG MAMM DX UNILAT RT CAD from 06/05/2020 MG MM SURGICAL SPECIMEN RT from 06/28/2020 MG MM STEREOTACTIC LOC RT from 06/28/2020 MG MM STEREOTACTIC LOC RT from 06/28/2020 MG MM CLIP PLACEMENT RT from 06/28/2020 TECHNIQUE: Standard CC and MLO images and 3D Tomosynthesis was obtained. R2 CAD reviewed. FINDINGS: Average fibroglandular tissue. There are 4 biopsy clips present. Previously noted suspicious calcifications at 2 o'clock in the retroareolar region are no longer apparent. Calcifications noted in the 10 o'clock region are less numerous. Clips are present at these areas.. No malignant appearing mass or malignant-appearing microcalcification. IMPRESSION: Benign findings. Post biopsy changes. BI-RAD Category: 2 Benign Finding FOLLOW-UP: Suggest resume screening mammogram in 6 months. (A letter has been sent to the patient regarding results of the study.) Dictated by: Matt Leonard MD 12/12/2020 08:50 Matt Leonard MD in [place] 12/12/2020 08:50
--- NOTE | 2020-12-11 14:35 | XR_ITS ---
PROCEDURE: XR LUMBAR SPINE MIN 4V CLINICAL INDICATION: SCIATICA OF RT SIDE COMPARISON: No exams were available for comparison FINDINGS: Alignment: Normal alignment. Bony structures: Minimal endplate osteophytes at L3-L4 and L5. No acute fracture or dislocation Disc spaces: No significant degenerative change. The disc spaces are preserved. Additional findings: SI joints have an unremarkable appearance. IMPRESSION: Minimal degenerative change Dictated by: Matt Leonard MD 12/11/2020 15:40 Matt Leonard MD in [place] 12/11/2020 15:40
== END ==
PROVIDERS: PCP Family Medicine; Visit Provider Family Medicine
DX: R92.8 Other abnormal and inconclusive findings on diagnostic imaging of breast (principal); R92.1 Mammographic calcification found on diagnostic imaging of breast; M54.31 Sciatica, right side
CPT/HCPCS: 72110; 77061; 77065; G0279

== ENCOUNTER → 2021-05-13 13:51 | Outpatient (CLI) | payer BC, SELFPAY ==
[2021-05-13 14:06] LABS: Adenovirus,PCR Not Detected (NotDetected); Coronavirus 229E Not Detected (NotDetected); Coronavirus NL63 Not Detected (NotDetected); Coronavirus OC43 Not Detected (NotDetected); Coronovirus HKU1,PCR Not Detected (NotDetected); Human Metapneumovirus Not Detected (NotDetected); Influenza A, PCR Not Detected (NotDetected); Influenza AH1, 2009 Not Detected (NotDetected); Influenza AH1, PCR Not Detected (NotDetected); Influenza AH3,PCR Not Detected (NotDetected); Influenza B, PCR Not Detected (NotDetected); Parainfluenza 1, PCR Not Detected (NotDetected); Parainfluenza 2, PCR Not Detected (NotDetected); Parainfluenza 3, PCR Not Detected (NotDetected); Rhinovirus/Enterovirus Not Detected (NotDetected)
[2021-05-13 14:07] LABS: Bordetella Pertussis Not Detected (NotDetected); Chlamydophila Pneumoniae, PCR Not Detected (NotDetected); Coronavirus 19, PCR Not Detected (NotDetected); Mycoplasma Pneumoniae, PCR Not Detected (NotDetected); Parainfluenza 4, PCR Not Detected (NotDetected); Respiratory Syncytial Virus Not Detected (NotDetected)
[2021-05-13 14:19] LABS: Basophils # 0.1 K/mm3 (0-0.2); Basophils % 0.7 % (0.1-2.0); Eosinophils # 0.3 K/mm3 (0.0-0.4); Eosinophils % 2.5 % (0.1-12.0); Hematocrit 44.2 % (37.0-47.0); Hemoglobin 14.3 g/dL (12.2-16.2); Lymphocytes % 30.4 % (10-50); Mean Corpuscular HGB Conc 32.4 g/dL (31.8-35.4); Mean Corpuscular Hemoglobin 28.4 pg (27.0-31.2); Mean Corpuscular Volume 87.7 fl (81-99); Mean Platelet Volume 8.8 fl (7.4-10.4); Monocytes # 0.6 K/mm3 (0.1-1.0); Neutrophils # 5.9 K/mm3 (1.8-7.8); Neutrophils % 60.3 % (37.0-80.0); Platelet Count 313 K/mm3 (142-424); Red Blood Count 5.04 M/mm3 (4.20-5.40); Red Cell Distribution Width 12.7 % (11.5-17.5); White Blood Count 9.8 K/mm3 (4.8-10.8)
--- NOTE | 2021-05-13 14:26 | XR_ITS ---
PROCEDURE: XR CHEST PORTABLE CLINICAL HISTORY: COMPARISON: CR XR CHEST PORTABLE from 08/23/2019 CR XR CHEST 2V from 12/19/2019 CR XR CHEST PORTABLE from 05/11/2020 FINDINGS: The cardiomediastinal silhouette and pulmonary vascularity are within normal limits. The lungs are clear without infiltrates, suspicious nodules, or pleural effusions. Calcified granuloma right upper lobe No acute bony abnormalities. IMPRESSION: No acute findings. Dictated by: Matt Leonard MD 05/13/2021 16:26 Matt Leonard MD in [place] 05/13/2021 16:26
== END ==
PROVIDERS: PCP Family Medicine; Visit Provider Nurse Practitioner Family
DX: Z20.822 Contact with and (suspected) exposure to COVID-19 (principal)
CPT/HCPCS: 36415; 71045; 85025; 87581; 87632; 87798; C9803; U0003; U0005

== ENCOUNTER → 2021-05-21 13:49 | Outpatient (CLI) | payer BC, SELFPAY ==
--- NOTE | 2021-05-21 13:51 | MM_ITS ---
PROCEDURE INFORMATION: Exam: MG Bilateral Screening 3D Mammography Exam date and time: 05/21/2021 1:51 PM Age: 55 years old Clinical indication: screening mammogram TECHNIQUE: Imaging protocol: Bilateral screening tomosynthesis and 2D mammography including computer-aided detection (CAD) when performed. COMPARISON: 1. MG MM DIG MAMM DX UNILAT RT CAD 12/11/2020 2:29 PM 2. MG DIGMAMMDX MAMMOGRAM DX-EDUCATION AND OUTREACH COORDINATOR N/C 03/14/2009 5:13 PM 3. MG DIGMAMMS MAMMOGRAM SCREEN-EDUCATION AND OUTREACH COORDINATOR N/C 08/07/2008 5:13 PM 4. MG DIGMAMMDX MAMMOGRAM DX-EDUCATION AND OUTREACH COORDINATOR N/C 03/20/2006 5:13 PM FINDINGS: MAMMOGRAPHY: Breast composition: There are scattered areas of fibroglandular density. Mass: None. Architectural distortion: No new or suspicious architectural distortion. Calcifications: No new or suspicious calcifications are present Asymmetric density: No new or suspicious asymmetric density is present Skin thickening: None. Axillary adenopathy: None. IMPRESSION: No mammographic evidence of malignancy. Recommend annual screening mammography unless otherwise clinically indicated. ASSESSMENT: BI-RADS category 1: Negative
== END ==
PROVIDERS: PCP Family Medicine; Visit Provider Family Medicine
DX: R92.8 Other abnormal and inconclusive findings on diagnostic imaging of breast (principal)
CPT/HCPCS: 77063; 77067

== ENCOUNTER → 2021-11-02 07:26 | Outpatient (CLI) | payer BC, SELFPAY ==
--- NOTE | 2021-11-02 07:30 | XR_ITS ---
PROCEDURE INFORMATION: Exam: XR Chest Exam date and time: 11/02/2021 7:32 AM Age: 56 years old Clinical indication: Cough; Prior surgery; Surgery date: 6+ months; Surgery type: Breast biopsy clips TECHNIQUE: Imaging protocol: XR of the chest. Views: 2 views. COMPARISON: 1. CR XR CHEST PORTABLE 05/13/2021 2:33 PM 2. 05/11/2020 2:59 p.m.. FINDINGS: Lungs: 2 persistent right upper lobe nodules. Findings stable. Pleural spaces: Unremarkable. No pleural effusion. No pneumothorax. Heart/Mediastinum: Unremarkable. No cardiomegaly. Bones/joints: Unremarkable. IMPRESSION: No evidence of acute cardiopulmonary disease.
== END ==
LOC: COVID.OUT 07:26 → RAD 07:28
PROVIDERS: PCP Family Medicine; Visit Provider Nurse Practitioner Family
DX: R05.9 Cough, unspecified (principal)
CPT/HCPCS: 71046

== ENCOUNTER 2021-12-29 18:25 | Emergency (ER) | payer BC, SELFPAY ==
[2021-12-29 18:41] VITALS: BP 167/95; PULSE 112; RESP 18; TEMP 37.2; O2SAT 97; BMI 37.8
--- NOTE | 2021-12-29 18:44 | HMH.EDUTC ---
[facility] Disposition Clinical Impression: Viral syndrome Sinusitis Qualifiers: Sinusitis location: unspecified location Chronicity: acute Recurrence: non-recurrent Qualified Code(s): J01.90 - Acute sinusitis, unspecified Pharyngitis Qualifiers: Pharyngitis/tonsillitis etiology: unspecified etiology Qualified Code(s): J02.9 - Acute pharyngitis, unspecified Disposition: Home, Self-Care Condition on Discharge: Good Instructions: DI for Sinusitis, DI for COVID-19 (Suspected or Confirmed ), Preventing the Spread of Coronavirus Discharge Instructions Additional Instructions: Drink plenty of fluids. Take tylenol or ibuprofen for pain or fever. Take the medications as directed. Follow up with your regular doctor. GO TO THE ER FOR ANY WORSENING SYMPTOMS Quarantine until you know the results of your covid-19 test. Notify your school or workplace of your results and follow their instructions regarding return to work/school. Prescriptions: Amoxicillin [Amoxicillin 875MG Tab] 875 mg PO Q12H #20 tab Transmission Status: Received by [id number] Benzonatate [Benzonatate 100mg cap] 100 mg PO TIDP PRN #30 cap PRN Reason: Cough Transmission Status: Received by [id number] methylPREDNISolone [Medrol] 4 mg PO DIRECTED 6 Days #21 packet Transmission Status: Received by [id number] Referrals: Kimi Marquez MD [Primary Care Provider] - Forms: Work/School Release Time of Disposition: 19:18 Medical Decision Making - Medical Records Medical records reviewed: No: I reviewed the patient's medical records. - Betito Inquiry Pt receiving controlled substance: No Vital Signs: 12/29/21 18:41 Temperature 99.0 F Temperature Source Oral Pulse Rate [Left] 112 H Respiratory Rate 18 Blood Pressure [Right Arm] 167/95 H Blood Pressure Mean [Right Arm] 119 02 Sat by Pulse Oximetry 97 Orders (Tests/Meds): ORDERS Category Date Time Status Covid-19 Nasal PCR ([facility]) Routine Lab 12/29/21 18:34 Received [facility] HPI - General Stated complaint: cough congestion Time Seen by Provider: 12/29/21 18:45 Mode of Arrival: Ambulatory Source of Information: Patient Limitations: No Limitations Description of Symptoms (Recalled from Triage Doc. by RN): patient comes in with complaints of congestion, headache, sinus problems. symptoms began thursday HEENT Symptoms (Recalled from RN notes): Yes Resp Symptoms (Recalled from RN notes): Yes Skin Symptoms (Recalled from RN notes): No MS Symptoms (Recalled from RN notes): No Functional Status (Recalled from RN notes): n/a - History of Present Illness Provider Complaint: She states that she has had sinus congestion and bilateral ear pain for the past 2 days. She has a sore throat and chest congestion also. - Related Data Home Medications Medication Instructions Recorded Confirmed Omeprazole Magnesium 20 mg PO BID 12/19/19 01/05/20 Previous Rx's Medication Instructions Recorded Furosemide [Furosemide 40MG tAB*] 40 mg PO DAILY #30 tab 12/19/19 Levothyroxine Sodium 100 mcg PO DAILY #30 tab 12/19/19 [Levothyroxine 100mcg (0.1MG) Tab] Metoprolol Succinate [Toprol XL 25 mg PO DAILY #30 tab.er.24h 12/19/19 25mg tablet] losartan 50 mg-hydrochlorothiazide 1 tab PO DAILY #30 tab 01/05/20 12.5 mg tablet Amoxicillin [Amoxicillin 875MG 875 mg PO Q12H #20 tab 12/29/21 Tab] Benzonatate [Benzonatate 100mg 100 mg PO TIDP PRN #30 cap 12/29/21 cap] methylPREDNISolone [Medrol] 4 mg PO DIRECTED 6 Days #21 12/29/21 packet Allergies Allergy/AdvReac Type Severity Reaction Status Date / Time erythromycin base Allergy Intermediate I-HIVES Verified 12/29/21 18:45 - Worker's Comp Is this a Worker's Comp case?: No [facility] History - Hepatitis A Screen Attestation statement:: This patient has been screened for Hepatitis A risk factors. I have reviewed the patient's past medical history: Yes Medical Hi
[2021-12-29 19:46] VITALS: BP 167/95; PULSE 112; RESP 18; TEMP 37.2
== END 2021-12-29 19:47 | disposition home or self-care (01) ==
PROVIDERS: Emergency Provider Nurse Practitioner Family; PCP Family Medicine
DX: U07.1 COVID-19 (principal); J01.90 Acute sinusitis, unspecified
CPT/HCPCS: 99212; C9803; G0463; U0003; U0005

== ENCOUNTER → 2022-01-12 07:29 | Outpatient (CLI) | payer BC, SELFPAY ==
[2022-01-12 08:04] LABS: Strep Scrn Group A (Rapid) Negative (Negative)
== END ==
PROVIDERS: PCP Family Medicine; Visit Provider Family Medicine
DX: Z20.822 Contact with and (suspected) exposure to COVID-19 (principal); J02.9 Acute pharyngitis, unspecified
CPT/HCPCS: 87430

== ENCOUNTER → 2022-05-01 07:57 | Outpatient (CLI) | payer BC, SELFPAY ==
--- NOTE | 2022-05-01 08:01 | MM_ITS ---
PROCEDURE INFORMATION: Exam: MG Bilateral Screening 3D Mammography Exam date and time: 05/01/2022 7:53 AM Age: 56 years old Clinical indication: Screening examination. History of benign right biopsies. Her aunt had breast cancer. TECHNIQUE: Imaging protocol: Bilateral Screening tomosynthesis and 2D mammography including computer-aided detection (CAD) when performed. COMPARISON: 1. MG MM DIG SCREENING MAMM BI W/CAD 05/21/2021 1:53 PM 2. MG MM DIG MAMM DX UNILAT RT CAD 12/11/2020 2:29 PM 3. MG DIGMAMMDX MAMMOGRAM DX-TANDEM MILL OPERATOR N/C 03/14/2009 5:13 PM 4. MG DIGMAMMS MAMMOGRAM SCREEN-TANDEM MILL OPERATOR N/C 08/07/2008 5:13 PM FINDINGS: MAMMOGRAPHY: Breast composition: There are scattered areas of fibroglandular density. Mass: No suspicious mass. Architectural distortion: None. Calcifications: No suspicious calcifications. Asymmetric density: None. Skin thickening: None. Axillary adenopathy: None. Other findings: Right biopsy clips. IMPRESSION: No mammographic evidence of malignancy. Annual screening is recommended unless otherwise clinically indicated. ASSESSMENT: BI-RADS Category 2: Benign
== END ==
PROVIDERS: PCP Family Medicine; Visit Provider Family Medicine
DX: Z12.31 Encounter for screening mammogram for malignant neoplasm of breast (principal)
CPT/HCPCS: 77063; 77067

== ENCOUNTER → 2022-08-12 08:34 | Outpatient (CLI) | payer BC, SELFPAY ==
[2022-08-12 09:13] LABS: Basophils # 0.2 K/mm3 (0-0.2); Eosinophils # 0.3 K/mm3 (0.0-0.4); Eosinophils % 4.4 % (0.1-12.0); Hematocrit 47.2 % (37.0-47.0); Hemoglobin 15.3 g/dL (12.2-16.2); Lymphocytes # 3.3 K/mm3 (0.7-4.5); Lymphocytes % 42.6 % (10-50); Mean Corpuscular HGB Conc 32.4 g/dL (31.8-35.4); Mean Corpuscular Hemoglobin 28.7 pg (27.0-31.2); Mean Corpuscular Volume 88.7 fl (81-99); Mean Platelet Volume 9.5 fl (7.4-10.4); Monocytes # 0.6 K/mm3 (0.1-1.0); Monocytes % 7.2 % (1.7-9.3); Neutrophils # 3.4 K/mm3 (1.8-7.8); Neutrophils % 43.9 % (37.0-80.0); Platelet Count 247 K/mm3 (142-424); Red Blood Count 5.31 M/mm3 (4.20-5.40); Red Cell Distribution Width 13.6 % (11.5-17.5); White Blood Count 7.6 K/mm3 (4.8-10.8)
[2022-08-12 09:25] LABS: Chloride 103 mmol/L (98-107); Sodium 140 mmol/L (136-145)
[2022-08-12 09:26] LABS: Potassium 3.6 mmoL/L (3.5-5.1)
[2022-08-12 09:28] LABS: Alanine Aminotransferase 30 U/L (12-78); Albumin Level 4.2 g/dl (3.5-5.0); Albumin/Globulin Ratio 1.7 (1.1-1.8); Alkaline Phosphatase 90 U/L (38-126); Anion Gap 8.6 mEq/L (5-15); Aspartate Amino Transferase 25 U/L (14-36); Bilirubin,Total 0.9 mg/dl (0.2-1.3); Blood Urea Nitrogen 12 mg/dl (7-17); Calcium 8.9 mg/dl (8.4-10.2); Carbon Dioxide 32 mmol/L (22.0-30.0); Cholesterol 187 mg/dl (140-200); Estimated Glomerular Filt Rate 87 ml/min (>60); GFR (African American) 106 ML/MIN (>60); Globulin 2.5 g/dL (1.3-3.2); Glucose 99 mg/dl (74-100); Total Protein,Serum 6.7 g/dl (6.3-8.2); Triglycerides 129 mg/dl (30-150); VLDL Cholesterol 26 mg/dL (0-40)
[2022-08-12 09:29] LABS: Chol/HDL Ratio 4.9 (1-3.5); HDL Cholesterol 38 mg/dl (40-60)
[2022-08-12 09:40] LABS: Direct LDL Cholesterol 125.46 mg/dL (100-129)
[2022-08-16 10:35] LABS: Miscellaneous Test SEE COMMENTS
[2022-08-19 09:47] LABS: Thyroid Stimulating Hormone 5.38 uIU/mL (0.465-4.68)
== END ==
PROVIDERS: PCP Family Medicine; Visit Provider Nurse Practitioner Family
DX: E03.9 Hypothyroidism, unspecified (principal); E78.5 Hyperlipidemia, unspecified; Z79.899 Other long term (current) drug therapy
CPT/HCPCS: 36415; 80053; 80061; 84443; 85025

== ENCOUNTER → 2022-08-15 08:26 | Outpatient (CLI) | payer BC, SELFPAY ==
--- NOTE | 2022-08-15 08:45 | XR_ITS ---
FINAL REPORT CLINICAL HISTORY: COUGH COMPARISON: 11/02/2021 FINDINGS: Two views of the chest were obtained. The heart size and pulmonary vascularity are within normal limits. The mediastinum is normal. No acute pulmonary abnormality is identified. There is no pneumothorax. The bony thorax is intact. IMPRESSION: No active cardiopulmonary disease. Reviewed, Interpreted and Dictated by Rom Luis III, MD Transcribed by Karin Hurtado Authenticated and [facility]
== END ==
LOC: RAD 08:26
PROVIDERS: PCP Nurse Practitioner Family; Visit Provider Nurse Practitioner Family
DX: R05.9 Cough, unspecified (principal)
CPT/HCPCS: 71046

== ENCOUNTER → 2022-08-27 12:50 | Outpatient (CLI) | payer BC, SELFPAY ==
--- NOTE | 2022-08-27 12:55 | CT_ITS ---
FINAL REPORT TECHNIQUE: Thin section axial images were obtained from the lung apices through the upper abdomen without contrast. This study was performed with techniques to keep radiation doses as low as reasonably achievable (ALARA). Individualized dose reduction techniques using automated exposure control or adjustment of mA and/or kV according to the patient's size were employed. CLINICAL HISTORY: HYPOTHYROIDISM, cough, right sided lower chest/rib pain COMPARISON: none FINDINGS: There is no mediastinal, hilar, or axillary lymphadenopathy. There is no pleural or pericardial effusion. There is a subtle ground-glass subpleural nodule in the left lower lobe measuring 6 mm seen on image 43. Granulomatous disease is noted. The lungs are otherwise clear.. Limited, unenhanced evaluation of the upper abdomen is without acute abnormality. There is no acute osseous abnormality. IMPRESSION: No acute intrathoracic abnormality. 6 mm ground-glass left lower lobe nodule. Recommend follow-up based on risk stratification and Fleischner criteria. Reviewed, Interpreted and Dictated by Nasreen Moore MD Transcribed by Karin Hurtado Authenticated and . [facility]
== END ==
LOC: RAD 12:50
PROVIDERS: PCP Nurse Practitioner Family; Visit Provider Nurse Practitioner Family
DX: E03.9 Hypothyroidism, unspecified (principal); R05.9 Cough, unspecified
CPT/HCPCS: 71250

== ENCOUNTER → 2022-09-08 10:44 | Outpatient (CLI) | payer BC, SELFPAY ==
--- NOTE | 2022-09-08 10:50 | US_ITS ---
FINAL REPORT TECHNIQUE: Ultrasound images of the neck soft tissues were obtained. CLINICAL HISTORY: LYMPHADENOPATHY FINDINGS: There are several mildly enlarged neck lymph nodes consistent with appearance most consistent with reactive lymph nodes. No mass or fluid collection is seen. IMPRESSION: Mildly enlarged neck lymph nodes most consistent with reactive lymph nodes. Reviewed, Interpreted and Dictated by Rom Luis III, MD Transcribed by Sussy Laureano Authenticated and [facility]
== END ==
LOC: RAD 10:44
PROVIDERS: PCP Nurse Practitioner Family; Visit Provider Physician Assistant
DX: R59.0 Localized enlarged lymph nodes (principal)
CPT/HCPCS: 76536

== ENCOUNTER 2022-11-15 18:43 | Emergency (ER) | payer BC, SELFPAY ==
[2022-11-15 18:52] VITALS: BP 157/87; PULSE 69; O2SAT 95
--- NOTE | 2022-11-15 18:54 | XR_ITS ---
PROCEDURE INFORMATION: Exam: XR Right Hand Exam date and time: 11/15/2022 6:49 PM Age: 57 years old Clinical indication: Injury or trauma; Other: Smashed 3rd and 4th digit in garage door; Crushing; Hand; Right; Additional info: Trauma, pain TECHNIQUE: Imaging protocol: Radiologic exam of the right hand. Views: 3 or more views. Total images: 3 COMPARISON: No relevant prior studies available. FINDINGS: Bones/joints: Acute nondisplaced tuft fracture distal phalanx 4th digit. No additional fracture or joint dislocation. Joint spaces are maintained and appropriate for age. Mild degenerative changes present at the interphalangeal joint of the thumb and DIP joint index finger. No concerning bone lesions or calcifications. Soft tissues: Unremarkable soft tissues. No radiopaque foreign body. IMPRESSION: Acute nondisplaced tuft fracture distal phalanx 4th finger.
[2022-11-15 18:55] VITALS: BP 157/87; PULSE 78; RESP 18; TEMP 36.8; O2SAT 98; BMI 35.9
--- NOTE | 2022-11-15 18:56 | HMH.EDGENADL ---
Discharge Plan Disposition Patient Disposition: Home, Self-Care Condition: Fair Prescriptions Prescriptions: No Action fluticasone propionate [Flonase Allergy Relief] 50 mcg/actuation spray,suspension 2 spray intranasal DAILY 90 Days Qty: 16 2RF Rx Instructions: administer into each nostril budesonide-formoterol [Symbicort] 80-4.5 mcg/actuation HFA aerosol inhaler 1 inh inhalation QID PRN (Reason: shortness of breath or wheezing) 90 Days Qty: 10.2 2RF azelastine 205.5 mcg (0.15 %) spray,non-aerosol 2 spray intranasal HS 90 Days Qty: 30 3RF Rx Instructions: administer into each nostril furosemide 40 MG tablet 40 mg PO DAILY Qty: 30 3RF levothyroxine 100 MCG tablet 100 mcg PO DAILY Qty: 30 3RF Referrals Follow up/Referrals: Kimi Marquez MD [Primary Care Provider] - See instructions Activity Restrictions/Add. Instructions Additional Instructions/Restrictions: You have been evaluated for injuries to the right hand, middle and ring fingers. X-rays show no fracture. You have been diagnosed with a contusion, sprain. Please keep splint in place for comfort. Keep your hand elevated while at rest. Take Tylenol or Motrin for pain. Follow-up with your primary care doctor. Return to the emergency department for any new or worsening symptoms Clinical Impressions Clinical Impression: Contusion of finger of right hand, Sprain of finger of right hand Stand Alone Forms Stand Alone Forms: Work/School Release Instructions Patient Instructions: DI for Finger Sprain Discharge ED Provider: Sita Marinelli Adult HPI General Chief complaint: Extremity Injury, Upper Stated complaint: Shut Garage door/right hand AO 11/15 Time Seen by Provider: 11/15/22 18:48 Mode of Arrival: Ambulatory Source of Information: Patient Limitations: No Limitations History of Present Illness HPI narrative: 57-year-old female presenting to the emergency department with right hand pain after an injury. Incident happened just prior to arrival. She was charting her garage door when her hand got caught between 2 of the panels. Her fingers were partially crushed. She had immediate pain located on the middle and ring finger on the right hand. Pain radiates into the dorsal and palmar side of her hand. Small amount of blood coming from the fingernail of the right ring finger. No other lacerations or abrasions. No medications prior to arrival. She is able to move her fingers, but they feel tight. No numbness, tingling. Related Data Previous Rx's Medication Instructions Recorded furosemide 40 mg tablet 40 mg PO DAILY #30 tabs 12/19/19 levothyroxine 100 mcg tablet 100 mcg PO DAILY #30 tabs 12/19/19 azelastine 205.5 mcg (0.15 %) 2 spray intranasal HS 90 days #30 10/03/22 nasal spray mL budesonide-formoterol HFA 80 1 inh inhalation QID PRN shortness 10/03/22 mcg-4.5 mcg/actuation aerosol of breath or wheezing 90 days inhaler (Symbicort) #10.2 grams fluticasone propionate 50 2 spray intranasal DAILY 90 days 10/03/22 mcg/actuation nasal #16 grams spray,suspension (Flonase Allergy Relief) Allergies Allergy/AdvReac Type Severity Reaction Status Date / Time erythromycin base Allergy Intermediate I-HIVES Verified 11/15/22 18:59 [facility] Disclaimer: The information contained in this section may have been updated after the patient was seen, as this information can be updated by other users. Medical History (Updated 11/15/22 @ 19:02 by Sita Marinelli DO) Allergic rhinitis Chronic cough Daytime somnolence Nodule of left lung Restless sleeper Surgical History History of breast biopsy History of section History of cholecystectomy History of hysterectomy History of surgery on upper extremity History of thyroid surgery Family History Other Asthma Diabetes Social Histor
[2022-11-15 19:30] VITALS: BP 134/74; PULSE 79; O2SAT 97
[2022-11-15 19:31] VITALS: BP 134/74; O2SAT 97
[2022-11-15 19:44] VITALS: BP 134/74; PULSE 83; RESP 18; TEMP 36.8
== END 2022-11-15 19:53 | disposition home or self-care (01) ==
PROVIDERS: Emergency Provider Emergency Medicine; PCP Family Medicine
DX: S63.619A Unspecified sprain of unspecified finger, initial encounter (principal); S60.00XA Contusion of unspecified finger without damage to nail, initial encounter; M79.644 Pain in right finger(s); W23.2XXA Caught, crushed, jammed or pinched between a moving and stationary object, initial encounter
CPT/HCPCS: 73130; 99283; 99284

== ENCOUNTER → 2022-12-12 08:02 | Outpatient (CLI) | payer BC, SELFPAY | LOC: RT 08:03 | PROVIDERS: PCP Family Medicine; Visit Provider Internal Medicine Pulmonary Disease | DX: R06.09 Other forms of dyspnea (principal) | CPT/HCPCS: 94060; 94618; 94726; 94729 ==

== ENCOUNTER → 2023-01-08 09:35 | Outpatient (CLI) | payer BC, SELFPAY ==
--- NOTE | 2023-01-08 09:40 | XR_ITS ---
FINAL REPORT CLINICAL HISTORY: INJURY OF FINGER RT HAND, SMASHED IN DOOR, 4TH DIGIT FINGERNAIL DETACHING, 3RD DIGIT PAIN FINDINGS: RIGHT HAND Three views demonstrate no acute fracture or dislocation. The visualized joint spaces are normally aligned. The soft tissues are unremarkable. IMPRESSION: No acute bony abnormality. Reviewed, Interpreted and Dictated by Rom Luis III, MD Transcribed by Sussy Laureano Authenticated and . [facility]
== END ==
PROVIDERS: PCP Family Medicine; Visit Provider Family Medicine
DX: M25.531 Pain in right wrist (principal); S69.91XD Unspecified injury of right wrist, hand and finger(s), subsequent encounter
CPT/HCPCS: 73130

== ENCOUNTER 2023-04-18 16:16 | Emergency (ER) | payer BC, SELFPAY ==
[2023-04-18 16:20] VITALS: BP 184/99; PULSE 78; RESP 20; TEMP 36.8; O2SAT 98; BMI 42.3
--- NOTE | 2023-04-18 16:25 | EXP.UTC ---
Discharge Plan Disposition Patient Disposition: Home, Self-Care Condition: Good Prescriptions Prescriptions: New Paxlovid 300 mg (150 mg x 2)-100 mg tablets,dose pack See Rx Instructions .ROUTE .COMPLEX Qty: 30 0RF Rx Instructions: take TWO 150 mg tablets of nirmatrelvir with ONE 100 mg tablet of ritonavir twice daily for 5 days benzonatate [benzonatate] 100 mg capsule 100 mg PO TIDP PRN (Reason: Cough) Qty: 30 0RF ondansetron 4 mg Tablet,Disintegrating 4 mg PO Q8H PRN (Reason: Nausea) Qty: 12 0RF No Action fluticasone propion-salmeterol [Advair HFA] 45-21 mcg/actuation HFA aerosol inhaler 1 puff inhalation BID PRN (Reason: shortness of breath or wheezing) Qty: 12 3RF fluticasone propionate [Flonase Allergy Relief] 50 mcg/actuation spray,suspension 2 spray intranasal DAILY 90 Days Qty: 16 2RF Rx Instructions: administer into each nostril azelastine 205.5 mcg (0.15 %) spray,non-aerosol 2 spray intranasal HS 90 Days Qty: 30 3RF Rx Instructions: administer into each nostril furosemide 40 MG tablet 40 mg PO DAILY Qty: 30 3RF levothyroxine 100 MCG tablet 100 mcg PO DAILY Qty: 30 3RF Referrals Follow up/Referrals: Kimi Marquez MD [Primary Care Provider] - See instructions Activity Restrictions/Add. Instructions Additional Instructions/Restrictions: Drink plenty of fluids. Take tylenol or ibuprofen for pain or fever. Take the medications as directed. Follow up with your regular doctor. GO TO THE ER FOR ANY WORSENING SYMPTOMS Clinical Impressions Clinical Impression: COVID-19 Instructions Patient Instructions: Coronavirus Disease 2019, Preventing the Spread of Coronavirus Discharge Instructions Discharge ED Provider: Hermes Hoang [facility] General Stated complaint: covid + home test Time Seen by Provider: 04/18/23 16:25 History of Present Illness Provider Complaint: She states that she has felt bad for the past 2 days. She has had chest congestion, sinus congestion, body aches, fever and malaise. Related Data Previous Rx's Medication Instructions Recorded furosemide 40 mg tablet 40 mg PO DAILY #30 tabs 12/19/19 levothyroxine 100 mcg tablet 100 mcg PO DAILY #30 tabs 12/19/19 azelastine 205.5 mcg (0.15 %) 2 spray intranasal HS 90 days #30 10/03/22 nasal spray mL fluticasone propionate 50 2 spray intranasal DAILY 90 days 10/03/22 mcg/actuation nasal #16 grams spray,suspension (Flonase Allergy Relief) fluticasone propionate 45 1 puff inhalation BID PRN 12/12/22 mcg-salmeterol 21 mcg/actuation shortness of breath or wheezing HFA inhaler (Advair HFA) #12 grams benzonatate 100 mg capsule 100 mg PO TIDP PRN Cough #30 caps 04/18/23 nirmatrelvir 300 mg (150 mg See Rx Instructions PO .COMPLEX 04/18/23 x2)-ritonavir 100 mg tablet,dose #30 tabs pack (Paxlovid) ondansetron 4 mg disintegrating 4 mg PO Q8H PRN Nausea #12 tabs 04/18/23 tablet Allergies Allergy/AdvReac Type Severity Reaction Status Date / Time erythromycin base Allergy Intermediate I-HIVES Verified 12/12/22 10:27 [facility] Disclaimer: The information contained in this section may have been updated after the patient was seen, as this information can be updated by other users. Medical History (Updated 04/18/23 @ 16:47 by Hermes Hoang APRN) Allergic rhinitis Chronic cough Daytime somnolence Nodule of left lung Restless sleeper Surgical History History of breast biopsy History of section History of cholecystectomy History of hysterectomy History of surgery on upper extremity History of thyroid surgery Family History Other Asthma Diabetes Social History (Updated 12/12/22 @ 10:28 by Lorraine Beasley) Smoking Status: Former smoker tobacco type: cigarettes packs per day: 0 smoking status stop date: 2002 second hand exposure: No alcohol intake
[2023-04-18 16:50] VITALS: BP 184/99; PULSE 78; RESP 20; TEMP 36.8; O2SAT 98
== END 2023-04-18 16:54 | disposition home or self-care (01) ==
PROVIDERS: Emergency Provider Nurse Practitioner Family; PCP Family Medicine
DX: U07.1 COVID-19 (principal); R09.89 Other specified symptoms and signs involving the circulatory and respiratory systems; R09.81 Nasal congestion; R50.9 Fever, unspecified; R53.81 Other malaise; J30.9 Allergic rhinitis, unspecified; Z87.891 Personal history of nicotine dependence
CPT/HCPCS: 87635; 99212; 99214; G0463

== ENCOUNTER → 2023-05-18 10:26 | Outpatient (CLI) | payer BC, SELFPAY ==
--- NOTE | 2023-05-18 10:33 | MM_ITS ---
PROCEDURE INFORMATION: Exam: MG Bilateral Screening 3D Mammography Exam date and time: 05/18/2023 10:28 AM Age: 57 years old Clinical indication: Screening examination TECHNIQUE: Imaging protocol: Bilateral Screening tomosynthesis and 2D mammography including computer-aided detection (CAD) when performed. COMPARISON: 1. MG MM DIG SCREENING MAMM BI W/CAD 05/01/2022 7:53 AM 2. MG MM DIG SCREENING MAMM BI W/CAD 05/21/2021 1:53 PM 3. MG MM DIG MAMM DX UNILAT RT CAD 12/11/2020 2:29 PM 4. MG MM CLIP PLACEMENT RT 06/28/2020 12:10 PM FINDINGS: MAMMOGRAPHY: Breast composition: There are scattered areas of fibroglandular density. Mass: Questionable oval, lobulated, 0.7 cm mass with possible related calcifications, in the left lower inner quadrant, anterior 3rd, 2-3 cm from the nipple, CC frame 20 and MLO frame 49. Architectural distortion: None. Calcifications: No suspicious calcifications. Asymmetric density: None. Skin thickening: None. Axillary adenopathy: None. IMPRESSION: Patient will be recalled for left diagnostic mammography with spot compression in CC and MLO projections, and spot magnification view in CC - as well as left sonography for further evaluation of questionable left breast mass. ASSESSMENT: BI-RADS Category 0: Incomplete- Need Additional Imaging Evaluation and/or Prior Mammograms for Comparison
== END ==
PROVIDERS: PCP Family Medicine; Visit Provider Family Medicine
DX: Z12.31 Encounter for screening mammogram for malignant neoplasm of breast (principal)
CPT/HCPCS: 77063; 77067

== ENCOUNTER 2023-06-03 14:42 | Outpatient (CLI) | payer BC, SELFPAY ==
--- NOTE | 2023-06-03 14:48 | US_ITS ---
PROCEDURE INFORMATION: Exam: US Left Breast, Complete MG Left Diagnostic Breast Tomosynthesis Exam date and time: 06/03/2023 2:37 PM Age: 57 years old Clinical indication: Patient recalled on the basis of a screening mammogram for further evaluation; Left breast; mass TECHNIQUE: Imaging protocol: Complete ultrasound of all four quadrants of the left breast and the retroareolar regions, including ultrasound of the axilla when performed. Left Diagnostic tomosynthesis and 2D mammography including computer-aided detection (CAD) when performed. Unilateral or bilateral exam. COMPARISON: 1. MG MM DIG SCREENING MAMM BI W/CAD 05/18/2023 10:28 AM 2. MG MM DIG SCREENING MAMM BI W/CAD 05/01/2022 7:53 AM FINDINGS: MAMMOGRAPHY: Digital diagnostic spot compression views of the left breast and 90 degree lateral view of the left breast demonstrate normal overlapping fibroglandular structures without persistent mass or asymmetry identified. ULTRASOUND: Sonographic images of the left breast including the retroareolar region, all 4 quadrants and the axilla do not demonstrate any solid masses. A cluster of micro cysts with a combined dimension of 0.8 cm is noted in the left 8 o'clock axis 3 cm from the nipple. No architectural distortion or acoustical shadowing. No skin thickening or axillary adenopathy. IMPRESSION: No mammographic or sonographic evidence of malignancy. Annual bilateral mammographic screening is recommended unless otherwise clinically indicated. ASSESSMENT: BI-RADS Category 2: Benign
== END 2023-06-03 23:59 ==
LOC: RAD 14:43
PROVIDERS: PCP Family Medicine; Visit Provider Physician Assistant
DX: R92.8 Other abnormal and inconclusive findings on diagnostic imaging of breast (principal)
CPT/HCPCS: 76641; 77061; 77065; G0279

== ENCOUNTER 2023-11-15 18:45 | Emergency (ER) | payer BC, SELFPAY ==
--- NOTE | 2023-11-15 18:49 | XR_ITS ---
PROCEDURE INFORMATION: Exam: XR Left Foot Exam date and time: 11/15/2023 6:45 PM Age: 58 years old Clinical indication: Pain; Foot; Left; Additional info: Pain; States stubbed 2nd digit left foot; C/O intermittent pain when walking TECHNIQUE: Imaging protocol: Radiologic exam of the left foot. Views: 3 or more views. COMPARISON: CR XR FOOT WT BEARING LT 3V 07/14/2019 2:12 PM FINDINGS: Bones/joints: Subtle irregularities involving the tibial margin of the 2nd toe tuft may represent nondisplaced fracture. Intermediate sized enthesophytes involving the calcaneus. Soft tissues: Moderate soft tissue swelling of the 2nd toe. IMPRESSION: Subtle irregularities involving the tibial margin of the 2nd toe tuft may represent nondisplaced fracture.
[2023-11-15 19:00] VITALS: BP 130/95; PULSE 72; RESP 20; TEMP 36.4; O2SAT 96; BMI 34.0
--- NOTE | 2023-11-15 19:07 | ED_ITS ---
Discharge Plan Disposition Patient Disposition: Home, Self-Care Condition: Good Prescriptions Prescriptions: No Action montelukast 10 mg tablet 10 mg PO DAILY Patient Comments: TAKE 1 TABLET BY MOUTH ONCE DAILY escitalopram oxalate 20 mg tablet 20 mg PO DAILY Patient Comments: TAKE 1 TABLET BY MOUTH ONCE DAILY Mounjaro 7.5 mg/0.5 mL pen injector 7.5 mg SQ WEEKLY furosemide 40 MG tablet 40 mg PO DAILY Qty: 30 3RF levothyroxine 100 MCG tablet 100 mcg PO DAILY Qty: 30 3RF Referrals Follow up/Referrals: Kimi Marquez MD [Primary Care Provider] - See instructions Justyna Garcia DPM [Staff Physician] - See instructions Activity Restrictions/Add. Instructions Additional Instructions/Restrictions: Rest the extremity, Elevate the extremity as tolerated while you are resting. Take ibuprofen for pain (if you can take this). Follow up with Dr. Garcia (podiatry). I put in a referral but you need to call her office and schedule an appointment. Follow up with your regular doctor. GO TO THE ER FOR ANY WORSENING SYMPTOMS Clinical Impressions Clinical Impression: Contusion of fourth toe, left Instructions Patient Instructions: DI for Contusion, DI for Foot Pain Discharge ED Provider: Hermes Hoang [facility] General Stated complaint: toe injury L foot Time Seen by Provider: 11/15/23 19:07 History of Present Illness Provider Complaint: She states that, this morning, she accidentally bumper her left foot into a child's riding toy. Since then she has had pain, tenderness, and swelling of her fourth toe and the area at the base of that toe. She states that bearing weight and walking on the foot makes her pain much worse. She denies any other injury or complaints. She is a diabetic. Related Data Home Medications Medication Instructions Recorded Confirmed escitalopram oxalate 20 mg tablet 20 mg PO DAILY 11/15/23 11/15/23 montelukast 10 mg tablet 10 mg PO DAILY 11/15/23 11/15/23 tirzepatide 7.5 mg/0.5 mL 7.5 mg SQ WEEKLY 11/15/23 11/15/23 subcutaneous pen injector (Mounjaro) Previous Rx's Medication Instructions Recorded furosemide 40 mg tablet 40 mg PO DAILY #30 tabs 12/19/19 levothyroxine 100 mcg tablet 100 mcg PO DAILY #30 tabs 12/19/19 Allergies Allergy/AdvReac Type Severity Reaction Status Date / Time erythromycin base Allergy Intermediate I-HIVES Verified 12/12/22 10:27 [facility] Disclaimer: The information contained in this section may have been updated after the patient was seen, as this information can be updated by other users. Medical History (Updated 11/15/23 @ 19:34 by Hermes Hoang APRN) Thyroid disease Diabetes mellitus, type 2 Allergic rhinitis Chronic cough Nodule of left lung Restless sleeper Daytime somnolence Surgical History History of thyroid surgery History of surgery on upper extremity History of hysterectomy History of cholecystectomy History of section History of breast biopsy Family History Other Asthma Diabetes Social History (Updated 12/12/22 @ 10:28 by Lorraine Beasley) Smoking Status: Former smoker tobacco type: cigarettes packs per day: 0 smoking status stop date: 2002 second hand exposure: No alcohol intake: never substance use type: denies use current occupational status: employed Travel in the last 8 weeks: None household members: spouse housing: house current occupation: [employer] current occupational exposures/hazards: No caffeine: Yes ROS Obtained: Yes All systems reviewed & no additional complaints except as documented Constitutional Constitutional: Denies chills and Denies fever(s) Eyes Eyes: Denies eye discharge ENT Ears, Nose, Mouth, and Throat: Denies dizziness, Denies otalgia and Denies sore throat Cardiovascular Cardiovascular: Denies chest pain Respiratory Respiratory: Denies shortness of breath, Denies chest congestion, Denies cough, Denies stridor and Denies wheezing Gastrointestinal Gastrointestingal: Denies nausea or vomiting Musculoskeletal Musculoskeletal: Reports as per HPI Integumentary/Breasts Skin/Breast: Denies redness, Denies rash and Denies wounds Neurologic Neurologic: Denies dizziness and Denies paresthesias Allergic/Immunologic Allergic/Immunologic: Denies wheezing Physical Exam General General appearance: alert and in no apparent distress Head Head exam: atraumatic, normocephalic and normal inspection Eye Eye exam: Present normal appearance, PERRL and EOMI ENT ENT exam: Present normal exam, normal oropharynx, mucous membranes moist, TM's normal bilaterally and normal external ear exam Neck Neck exam: Present normal inspection, full ROM and trachea midline; Absent meningismus or lymphadenopathy Chest Chest inspection: Present normal inspection and symmetric chest wall rise; Absent tenderness Respiratory Respiratory exam: Present normal lung sounds bilaterally; Absent respiratory distress Cardiovascular Cardiovascular exam: Present regular rate and normal rhythm; Absent JVD Abdominal Exam Abdominal exam: Present soft and normal bowel sounds; Absent distention, tenderness or guarding Extremities Exam Extremities exam: Present normal capillary refill; Absent calf tenderness Expanded Lower Extremity Exam Left: Knee exam: Present normal inspection, full ROM and knee extension intact; Absent tenderness Lower leg exam: Present normal inspection, full ROM and Achilles tendon intact; Absent tenderness or Homans' sign Ankle exam: Present normal inspection and full ROM; Absent tenderness, tenderness over talofibular lig or anterior draw sign Foot/toe exam: Present full ROM and tenderness; Absent swelling, abrasion, laceration, ecchymosis, deformity, crepitus, dislocation, erythema, amputation, puncture wound, foreign body, calcaneal tenderness, tenderness at base of 5th metatarsal, nail avulsion or subungual hematoma Neurovascular/Tendon exam: Present normal capillary refill, normal 2-point discrimination and normal fine/light touch; Absent pulse deficit, motor deficit, sensory deficit, tendon deficit, extremity cold to touch or pallor Gait: observed and limited by pain Back Exam Back exam: Present normal inspection; Absent tenderness Neurological Exam Neurological exam: Present alert and oriented X3 Psychiatric Psychiatric exam: Present normal affect and normal mood Skin Skin exam: Present warm, dry, intact and normal color Lymphatic Lymphatic Findings: no adenopathy Medical Decision Making Medical Records Medical records reviewed: No I reviewed the patient's medical records. [facility] Inquiry Pt receiving controlled substance: No Orders (Tests/Meds): ORDERS Category Date Time Status Foot XR left minimum 3 views [XR foot LT min 3V] Stat Exams 11/15/23 18:49 Taken Radiology Data #1: Image(s): Foot/Toes Image Reviewed: Yes I reviewed the patient's radiology image and Yes I have reviewed radiologist's interpretation Preliminary Findings: No Fracture Seen
[2023-11-15 19:37] VITALS: BP 130/95; PULSE 72; RESP 20; TEMP 36.4; O2SAT 96
--- NOTE | 2023-11-16 10:03 | PC.NURSE ---
PATIENT NOTIFIED OF X-RAY READING. PATIENT ADVISED TO FOLLOW UP WITH DR. THOMPSON AND CONTINUE TO WEAR WALKING BOOT UNTIL THEN. PATIENT VERBALIZED UNDERSTANDING AND STATES SHE WILL BE FOLLOWING UP WITH PCP WELL
== END 2023-11-15 20:15 | disposition home or self-care (01) ==
PROVIDERS: Emergency Provider Nurse Practitioner Family; PCP Family Medicine
DX: S90.122A Contusion of left lesser toe(s) without damage to nail, initial encounter (principal); E11.9 Type 2 diabetes mellitus without complications; E03.9 Hypothyroidism, unspecified; W22.8XXA Striking against or struck by other objects, initial encounter; Z79.85 Long-term (current) use of injectable non-insulin antidiabetic drugs
CPT/HCPCS: 73630; 99212; 99213; G0463

== ENCOUNTER 2023-11-26 15:34 | Outpatient (CLI) | payer BC, SELFPAY ==
--- NOTE | 2023-11-26 15:41 | XR_ITS ---
FINAL REPORT CLINICAL HISTORY: Left 4th Toe Fx COMPARISON: 07/14/2019 FINDINGS: LEFT FOOT Three views of the left foot demonstrate a nondisplaced oblique fracture of the fourth proximal phalanx, which extends into the proximal inner phalangeal joint.. The visualized joint spaces are normally aligned. The soft tissues are unremarkable. A plantar calcaneal spur is noted as well. IMPRESSION: Nondisplaced oblique fracture of the fourth proximal phalanx, which extends into the PIP joint. Plantar calcaneal spur. Reviewed, Interpreted and Dictated by Kimi Doll MD Transcribed by Malka Will Authenticated and [facility]
== END 2023-11-26 23:59 | disposition home or self-care (01) ==
LOC: RAD 15:35
PROVIDERS: PCP Physician Assistant; Visit Provider Podiatrist
DX: M79.672 Pain in left foot (principal)
CPT/HCPCS: 73630

== ENCOUNTER 2023-12-14 09:17 | Outpatient (CLI) | payer BC, SELFPAY ==
--- NOTE | 2023-12-14 09:20 | XR_ITS ---
FINAL REPORT CLINICAL HISTORY: 4th toe fracture COMPARISON: 11/26/2023 FINDINGS: AP, oblique and lateral views of the left foot were obtained. There is no significant interval change in the intra-articular fracture of the proximal head of the fourth proximal phalanx when compared to the prior study of November 25. There is no significant increase in callus formation. The joint spaces are preserved. Soft tissues are normal. Alignment is unchanged. IMPRESSION: Fracture of the proximal head of the fourth proximal phalanx without significant interval change or interval callus formation. Reviewed, Interpreted and Dictated by Nasreen Moore MD Transcribed by Malka Will Authenticated and . [facility]
== END 2023-12-14 23:59 | disposition home or self-care (01) ==
LOC: RAD 09:18
PROVIDERS: PCP Physician Assistant; Visit Provider Podiatrist
DX: M79.672 Pain in left foot (principal)
CPT/HCPCS: 73630

== ENCOUNTER 2024-01-06 13:05 | Outpatient (CLI) | payer BC, SELFPAY ==
--- NOTE | 2024-01-06 13:05 | MR_ITS ---
FINAL REPORT CLINICAL HISTORY: Left Foot Pain, 2nd digit COMPARISON: Plain film dated 12/14/2023 FINDINGS: Multiplanar MR imaging of the left foot was performed without contrast. Motion artifact is identified on many of the images. There are mild degenerative changes. There are presumed subchondral cysts of the cuboid and lateral cuneiform. There is a small cyst or enchondroma in the inferior calcaneus. There is abnormal signal in the 4th proximal phalanx consistent with a fracture as seen on the plain radiograph. The flexor and extensor tendons are intact. No ligamentous injury is identified. The musculature is intact. Posterior plantar fasciitis is identified with adjacent soft tissue edema. No soft tissue mass or cyst is identified. IMPRESSION: Fracture of the 4th proximal phalanx. Reviewed, Interpreted and Dictated by Rom Luis III, MD Transcribed by Martha Leggett Authenticated and [facility]
== END 2024-01-06 23:59 | disposition home or self-care (01) ==
LOC: RAD 13:05
PROVIDERS: PCP Physician Assistant; Visit Provider Podiatrist
DX: M79.675 Pain in left toe(s) (principal); R60.0 Localized edema; S92.515G Nondisplaced fracture of proximal phalanx of left lesser toe(s), subsequent encounter for fracture with delayed healing
CPT/HCPCS: 73718

== ENCOUNTER 2024-02-08 13:10 | Outpatient (CLI) | payer BC, SELFPAY ==
--- NOTE | 2024-02-08 13:15 | XR_ITS ---
FINAL REPORT CLINICAL HISTORY: FX of LT 4th toe COMPARISON: 12/14/2023 FINDINGS: LEFT FOOT: Three views of the left foot were obtained. There is no acute fracture or dislocation. There is a oblique fracture of the fourth proximal phalanx, with a small amount of callus formation. The joint spaces are intact. There is no soft tissue abnormality. Note is made of a plantar calcaneal spur. IMPRESSION: Oblique fracture of the fourth proximal phalanx, with only a small amount of callus formation present since the prior film of December 13. Reviewed, Interpreted and Dictated by Rom Luis III, MD Transcribed by Malka Will Authenticated and [facility]
== END 2024-02-08 23:59 | disposition home or self-care (01) ==
LOC: RAD 13:12
PROVIDERS: PCP Physician Assistant; Visit Provider Podiatrist
DX: S92.515G Nondisplaced fracture of proximal phalanx of left lesser toe(s), subsequent encounter for fracture with delayed healing (principal)
CPT/HCPCS: 73630

== ENCOUNTER 2024-04-11 13:53 | Outpatient (CLI) | payer BC, SELFPAY ==
--- NOTE | 2024-04-11 14:02 | XR_ITS ---
FINAL REPORT CLINICAL HISTORY: f/u fx COMPARISON: None FINDINGS: LEFT FOOT: Three views of the left foot were obtained. There is an oblique fracture of the distal aspect of the fourth proximal phalanx, with evidence of partial healing when compared to the prior exam of January. The joint spaces are intact. There is no soft tissue abnormality. A plantar calcaneal spur is noted. IMPRESSION: Oblique fracture distal aspect of the fourth proximal phalanx, with evidence of partial healing when compared to the prior exam of January. Reviewed, Interpreted and Dictated by Rom Luis III, MD Transcribed by Malka Will Authenticated and [facility] [place] [place]
== END 2024-04-11 23:59 | disposition home or self-care (01) ==
LOC: RAD 13:54
PROVIDERS: PCP Physician Assistant; Visit Provider Podiatrist
DX: M79.672 Pain in left foot (principal)
CPT/HCPCS: 73630

== ENCOUNTER 2024-05-19 10:04 | Outpatient (CLI) | payer BC, SELFPAY ==
--- NOTE | 2024-05-19 10:07 | MM_ITS ---
PROCEDURE INFORMATION: Exam: MG Bilateral Screening 3D Mammography Exam date and time: 05/19/2024 9:57 AM Age: 58 years old Clinical indication: Screening examination TECHNIQUE: Imaging protocol: Bilateral Screening tomosynthesis and 2D mammography including computer-aided detection (CAD) when performed. COMPARISON: 1. MG MM DIG MAMM DX UNILAT LT CAD 06/03/2023 2:37 PM 2. MG MM DIG SCREENING MAMM BI W/CAD 05/18/2023 10:28 AM FINDINGS: MAMMOGRAPHY: Breast composition: There are scattered areas of fibroglandular density. Mass: No suspicious masses. Architectural distortion: None. Calcifications: No suspicious calcifications. Asymmetric density: None. Skin thickening: None. Axillary adenopathy: None. IMPRESSION: No mammographic evidence of malignancy. Annual screening is recommended unless otherwise clinically indicated. ASSESSMENT: BI-RADS Category 1: Negative.
== END 2024-05-19 23:59 | disposition home or self-care (01) ==
LOC: RAD 10:04
PROVIDERS: PCP Physician Assistant; Visit Provider Family Medicine
DX: Z12.31 Encounter for screening mammogram for malignant neoplasm of breast (principal)
CPT/HCPCS: 77063; 77067

== ENCOUNTER 2024-09-21 16:54 | Outpatient (CLI) | payer BC, SELFPAY ==
--- NOTE | 2024-09-21 16:57 | XR_ITS ---
PROCEDURE INFORMATION: Exam: XR Sacrum and Coccyx, 2 or More Views Exam date and time: 09/21/2024 4:58 PM Age: 58 years old Clinical indication: Pain in coccyx area; Additional info: Coccyx pain x2-3 weeks. Denies any injury TECHNIQUE: Imaging protocol: XR of the sacrum and coccyx, 2 or more views. COMPARISON: CR XR LUMBAR SPINE MIN 4V 12/11/2020 2:53 PM FINDINGS: Bones/joints: Normal. No acute fracture or deformity. Sacroiliac joints preserved. Soft tissues: Normal. IMPRESSION: No acute findings.
== END 2024-09-21 23:59 | disposition home or self-care (01) ==
LOC: RAD 16:54
PROVIDERS: PCP Physician Assistant; Visit Provider Physician Assistant
DX: M53.3 Sacrococcygeal disorders, not elsewhere classified (principal)
CPT/HCPCS: 72220

== ENCOUNTER 2024-09-22 07:24 | Outpatient (CLI) | payer BC, SELFPAY ==
[2024-09-22 07:35] LABS: Basophils % 0.6 % (0.1-2.0); Eosinophils # 0.1 Kmm3 (0.0-0.4); Eosinophils % 1.2 % (0.1-12.0); Hematocrit 40.1 % (37.0-47.0); Hemoglobin 12.7 g/dL (12.2-16.2); Lymphocytes # 2.8 K/mm3 (0.7-4.5); Mean Corpuscular HGB Conc 31.7 g/dL (31.8-35.4); Mean Corpuscular Hemoglobin 27.1 pg (27.0-31.2); Mean Corpuscular Volume 85.7 fl (81-99); Mean Platelet Volume 11.1 fl (7.4-10.4); Monocytes # 0.4 K/mm3 (0.1-1.0); Monocytes % 6.1 % (1.7-9.3); Neutrophils # 3.4 K/mm3 (1.8-7.8); Neutrophils % 50.8 % (37.0-80.0); Nucleated Red Blood Cells # 0 10^3/uL; Nucleated Red Blood Cells % 0 %; Platelet Count 217 K/mm3 (142-424); Red Blood Count 4.68 M/mm3 (4.20-5.40); Red Cell Distribution Width 14.4 % (11.5-17.5); Red Cell Distribution Width-SD 45.1 fL; White Blood Count 6.7 K/mm3 (4.8-10.8)
[2024-09-22 08:16] LABS: Albumin Level 3.9 g/dl (3.5-5.0); Chloride 100 mmol/L (98-107); Potassium 3.4 mmoL/L (3.5-5.1); Sodium 141 mmol/L (136-145)
[2024-09-22 08:18] LABS: Blood Urea Nitrogen 10 mg/dl (7-17); Estimated Glomerular Filt Rate 103 ml/min (>60); GFR (African American) 125 ML/MIN (>60)
[2024-09-22 08:19] LABS: Alanine Aminotransferase 18 U/L (12-78); Albumin/Globulin Ratio 1.6 (1.1-1.8); Alkaline Phosphatase 62 U/L (38-126); Anion Gap 9.4 mEq/L (5-15); Aspartate Amino Transferase 20 U/L (14-36); Calcium 9.2 mg/dl (8.4-10.2); Carbon Dioxide 35 mmol/L (22.0-30.0); Chol/HDL Ratio 3.5 (1-3.5); Cholesterol 181 mg/dl (140-200); Globulin 2.5 g/dL (1.3-3.2); Glucose 83 mg/dl (74-100); HDL Cholesterol 51 mg/dl (40-60); Total Protein,Serum 6.4 g/dl (6.3-8.2); Triglycerides 74 mg/dl (30-150); VLDL Cholesterol 15 mg/dL (0-40)
[2024-09-22 08:30] LABS: Direct LDL Cholesterol 101.58 mg/dL (100-129)
[2024-09-22 10:00] LABS: Hemoglobin A1C 4.8 % (4.0-6.0)
[2024-09-22 10:04] LABS: Vitamin B12 306 pg/mL (239-931)
== END 2024-09-22 23:59 | disposition home or self-care (01) ==
LOC: LAB 07:25
PROVIDERS: PCP Physician Assistant; Visit Provider Physician Assistant
DX: E53.8 Deficiency of other specified B group vitamins (principal); I10 Essential (primary) hypertension; E55.9 Vitamin D deficiency, unspecified; R73.01 Impaired fasting glucose; Z13.220 Encounter for screening for lipoid disorders
CPT/HCPCS: 36415; 80053; 80061; 82306; 82607; 83036; 85025

== ENCOUNTER 2025-02-14 12:26 | Outpatient (CLI) | payer BC, SELFPAY ==
--- OUTSIDE RECORDS SUMMARY | 2023-10-16 05:00 | XMS_ITS ---
Author Organization [facility] Address [address] [place] Francis [id number] Care Team Providers Care Welder Apprentice Arc Name Role Phone Jacobo Marquez Primary Care Provider Alek Rodriguez Unavailable [phone] Lorena Vaughan Unavailable [phone] Allergies Allergen (clinical drug ingredient) Drug/Non Drug Allergy documented on EMR Reaction Allergy Type Onset Date Status erythromycin Erythromycin Unknown Drug Allergy A ctive metformin metFORMIN Unknown Drug Allergy Active Results Component Value Reference Range Notes Glycohemoglobin A1c (in hous e) Reviewed date:10/19/2023 10:16:41 AM Interpretation:5.1% Performing Lab: Notes/Report: 5.1% glycohemoglobin 5.1% 5 - 6.5 % P-Comprehensive Metabolic Pa cathleen (CMP) Reviewed date:10/19/2023 10:16:41 AM Interpretation:K+ 3.1, gluc 102 Performing Lab: Notes/Report: Test performed by [facility] [address] [facility] , [address], [place] [address] Lon Mai MD, Receiving Supervisor CLIA: [id number] Sodium 143 135-145 mEq/L Potassium 3.1 3.5-5.3 mEq/L Chloride 102 97-108 mEq/L CO2 28 22-32 mEq/L Glucose 102 65-99 mg/dL BUN 11 6-20 mg/dL Creatinine 0.66 0.50-1.00 mg/dL Calcium 9.5 8.6-10.4 mg/dL eGFR by Creatinine 103 >59 mL/min/1.73m2 Protein 6.3 6.0-8.3 g/dL Albumin 4.2 3.5-5.3 g/dL Alkaline Phosphatase 72 35-121 IU/L ALT (SGPT) 24 <5-47 IU/L AST (SGOT) 21 <5-40 IU/L Bilirubin, Total 1.2 <0.2-1.2 mg/dL A/G Ratio 2.0 1.1-2.5 mg/dL P-Vitamin D 25-Hydroxy Reviewed date:10/19/2023 10:16:41 AM Interpretation:32.5 Performing Lab: Notes/Report: Test performed by [facility] [address] [place] [address] , [facility], [place] [address] Lon Mai MD, Receiving Supervisor CLIA: [id number] Vitamin D 25-Hydroxy 32.5 30.0-100.0 ng/mL Interpretation of Vitamin D 25 OH: < 20 ng/mL - Deficiency 20 - 29 ng/mL - Insufficiency 30 - 100 ng/mL - Sufficiency > 100 ng/mL - Super-therapeutic- toxicity may occur above this level. Clinical correlation required. REASON FOR VISIT f/u Medications Medication SIG (Take, Route, Frequency, Duration) Notes Start Date End Date Status Mounjaro 5 MG/0.5ML INJECT 1 SYRINGE SUBCUTANEOUSLY ONCE A WEEK; Duration: 28 Active Potassium Chloride ER 10 MEQ 1 tablet with food Orally Once a day; Duration: 30 day(s) 08/07/2023 Active Levothyroxine Sodium 125 MCG 1 tab(s) orally once a day; Duration: 30 days Active Fluticasone Propionate 50 MCG/ACT 1 spray(s) in each nostril once a day 09/21/2020 Active Naproxen 500 MG 1 tab(s) orally 2 ti mes a day 09/04/2022 Active Furosemide 40 MG take 1 tablet by once daily Orally once daily; Duration: 30 day(s) Activ e Vitamin D3 50 MCG (2000 UT) 1 capsule Orally Once a day 07/16/2023 Active Montelukast Sodium 10 MG take 1 tablet b y mouth once daily Orally Once a day; Duration: 30 day(s) Active Vitamin B12 1000 MCG 1 tablet Orally Once a day Active Ondansetron 4 MG 1 tablet on the tong ue and allow to dissolve Orally three times a day as needed 07/21/2023 Active Mounjaro 7.5 MG/0.5ML 7.5 mg Subcutaneou s once a week 10/16/2023 Active Lexapro 20 MG 1 tablet Orally Once a day; Duration: 30 day(s) 10/16/2023 Active Vital Signs Blood pressure systolic 140 mm Hg 10/16/19 24 Blood pressure diastolic 88 mm Hg 024 Heart Rate 78 /min 10/16/2023 Height 61 in 10/16/2023 Weight 191 lbs 10/16/2023 BMI 36.09 kg/m2 10/16/2023 Encounters Encounter Location Date Provider Diagnosis [facility] [address] [facility] [address] [place], [place] [address]ana, [place] [phone] 10/16/2023 Lorena Vaughan Impaired fasting glu cose R73.01 ; Depression with anxiety F41.8 ; Essential hypertension, hypertension with unspecified goal I10 ; Elevated bilirubin R17 ; Vitamin B12 deficiency E53.8 and Vitamin D deficiency E55.9 Assessments Encounter Date Diagnosis (ICD Code) Assessment Notes Treatment Notes Treatment Clinical Notes Section Notes 10/16/2023 Impaired fasting glucose (ICD-10 - R73.01) Doing well on mounjaro. Will increase dose. 10/16/2023 Depression with anxiety (ICD-10 - F41.8) 10/16/2023 Essential hypertension, hypertension with unspecified goal (ICD-10 - I10) 10/16/2023 Elevated bilirubin (ICD-10 - R17) 10/16/2023 Vitamin B12 deficiency (ICD-10 - E53.8) 10/16/2023 Vitamin D deficiency (ICD-10 - E55.9) Plan Of Treatment Medication Medication Name Sig Start Date Stop Date Notes Mounjaro 5 MG/0.5ML 5 mg Subcutaneous once a week Lexapro 10 MG 1 tablet Orally Once a day 09/09/2023 Mounjaro 7.5 MG/0.5ML 7.5 mg Subcutaneous once a week 09/29 Lexapro 20 MG 1 tablet Orally Once a day; Duration: 30 day(s) 10/16/2023 Treatment Notes Assessment Notes Impaired fasting glucose Doing well on m ounjaro. Will increase dose. Next Appt Details Follow Up: via phone to repo rt test results, Reason: Progress Notes * ANETTE HOLTDOB:[birth year] (59 yo F)Acc No.[id number]:10/16/2023 Progress Notes Patient: ANETTE COOPER Provider: JULIO Weinberg :1965 A ge:58 Y S ex:Female Date:10/16/2023 Address:[address], [id number] Pcp:Jacobo Marquez Subjective: * Chief Complaints: * 1 . F/u. * HPI: E ndocrinology: 58 year old female presents with c/o Recent Blood Sugars ? Pt states her b/s is running aound 110 . Pt states she needs refills today. Pt is fasting. Denies : Blurred Vision. D enies : Numbness, Tingling. * ROS: A LLERGY: no C ough. n o R unny nose. C ARDIOLOGY: no C hest pain. n o P alpitations. U ROLOGY: no D ifficulty urinating. n o B lood in urine. * Medical History: H ypertension, Hypothyroidism, Sleep apnea, Hyperlipidemia, Impaired fasting glucose, Depression, Anxiety, COVID 05/2020. * Surgical History: c -section x3 , cholecystectomy , total right thyroidectomy and parial left thyroidectomy/ Dr. 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 * Hospitalization/Major Diagno stic Procedure: s chel as above , [facility]-spider bite 08/15, [facility] - chest pain 12/19/2019. * Family History: F ather: alive. M other: alive. M aternal Grand Father: diagnosed with Mental Illness.?1 brother(s) , 1 sister(s) . 3 son(s) . . * Social History: C URRENT TOBACCO USE S moking Status: Patient does NOT smoke, Former Smoker: Yes, Quit smokin, Second hand smoke exposure: No. C affeine: yes, frequency:. Home smoke detector use: yes. Marital Status: Single, 2006. Past smoking status: no, Smoking status: Does not smoke. Alcohol: No. * Medications: T aking Furosemide 40 MG Tablet take 1 tablet by mouth once daily Orally once daily , Taking Montelukast Sodium 10 MG Tablet take 1 tablet by mouth once daily Orally Once a day , Taking Vitamin D3 50 MCG (2000 UT) Capsule 1 capsule Orally Once a day , Taking Vitamin B12 1000 MCG Tablet Extended Release 1 tablet Orally Once a day , Taking Ondansetron 4 MG Tablet Disintegrating 1 tablet on the tongue and allow to dissolve Orally three times a day as needed , Taking Levothyroxine Sodium 125 MCG Tablet 1 tab(s) orally once a day , Taking Naproxen 500 MG Tablet 1 tab(s) orally 2 times a day , Taking Fluticasone Propionate 50 MCG/ACT Suspension 1 spray(s) in each nostril once a day , Taking Potassium Chloride ER 10 MEQ Tablet Extended Release 1 tablet with food Orally Once a day , Taking Mounjaro 5 MG/0.5ML Solution Pen- injector INJECT 1 SYRINGE SUBCUTANEOUSLY ONCE A WEEK , Taking Lexapro 10 MG Tablet 1 tablet Orally Once a day , Medication List reviewed and reconciled with the patient * Allergies: E rythromycin, metFORMIN. Objective: * Vitals: W t:191, Temp:98.6, BP:140/88, HR:78, Nurse:dm, Ht: 61, Repeat BP:118/68, BMI:36.09. * Examination: G eneral Examination: General Appearance: N AD. H EENT: u nremarkable.?Oral cavity: n o lesions, mucosa moist and WNL, no erythema. N manny: s upple, no lymphadenopathy. C hest: n ormal shape and expansion. H eart: R SR. L ungs: c lear to auscultation. A bdomen: bowel sounds present, soft and nontender, no organomegaly or masses, no guarding or rigidity. N eurologic Exam: I ntact, gait normal. S kin: n ormal, no rash. P eripheral pulses: n ormal (2+) bilaterally. E xtremities: n o leg edema. Assessment: * Assessment: 1. I mpaired fasting glucose - R73.01 (Primary) 2 . D epression with anxiety - F41.8 3 . E ssential hypertension, hypertension with unspecified goal - I10? 4. E levated bilirubin - R17 5 . V itamin B12 deficiency - E53.8 6 . V itamin D deficiency - E55.9 Plan: * Treatment: Value Reference Range g lycohemoglobin 5.1% 5 - 6.5 % * Geena Smith 10/16/2023 9:53 :50 AM > Evon Jones 10/19/2023 10:12:15 AM >See phone encounter Evon Jones 10/19/2023 10:13:24 AM >See phone encounter Notes: Doing well on mounjaro. Will increase dose.??2.?Depression with anxiety? Stop Lexapro Tablet, 10 MG, 1 tablet, Orally, Once a day;?Start Lexapro Tablet, 20 MG, 1 tablet, Orally, Once a day, 30 day(s), 30, Refills 5.??3.?Elevated bilirubin?LAB: P-Comprehensive Metabolic Panel (CMP) (Collection Date & Time - 10/16/2023 08:45 AM)?K+ 3.1, gluc 102* Value Reference Range A /G Ratio 2.0 1.1-2.5 - mg/dL * A lbumin 4.2 3.5-5.3 - g/dL * A lkaline Phosphatase 72 35-121 - IU/L * A LT (SGPT) 24 <5-47 - IU/L * A ST (SGOT) 21 <5-40 - IU/L * B ilirubin, Total 1.2 <0.2-1.2 - mg/dL * B UN 11 6-20 - mg/dL * C alcium 9.5 8.6-10.4 - mg/dL * C hloride 102 97-108 - mEq/L * C O2 28 22-32 - mEq/L * C reatinine 0.66 0.50-1.00 - mg/dL * G lucose 102 H 65-99 - mg/dL * P otassium 3.1 L 3.5-5.3 - mEq/L * S odium 143 135-145 - mEq/L * P rotein 6.3 6.0-8.3 - g/dL * e GFR by Creatinine 103 >59 - mL/min/1.73m2 * Evon Jones 10/19/2023 10:1 2:15 AM >See phone encounter 4.?Vitamin D deficiency?LAB: P-Vitamin D 25-Hydroxy (Collection Date & Time - 10/16/2023 08:45 AM)? 32.5* Value Reference Range V itamin D 25-Hydroxy 32.5 30.0-100.0 - ng/mL * Evon Jones 10/19/2023 10:1 2:15 AM >See phone encounter * Procedure Codes: 3 6416 CAPILLARY BLOOD DRAW, 32543 GLYCATED HEMOGLOBIN TEST, Modifiers: QW * Follow Up: v ia phone to report test results * Images: Billing Information: * Visit Code: 39267 Office Visit, Est Pt., Level 4. * Procedure Codes: 97245 CAPILLARY BLOOD DRAW. 90747 GLYCATED HEMOGLOBIN TEST. Modifiers: QW * Electronic signature of JULIO Clay on 02/15/2025 at 01:28 PM EDT Sign off status: Pending * Provider: JULIO Weinberg Date: 0 10/16/2023 Generated for Suzani ng/Faxing/eTransmitting on: 0 02/15/2025 01:28 PM EDT History and Physical Notes * HPI (History of Present Illness) Category Sub-Category Detail Notes Category Not es Endocrinology Numbness, Tingling Recent Blood Sugars Pt states her b/s is running aound 110 . Pt states she needs refills today. Pt is fasting Blurred Vision Examination Category Sub-Category Detail Notes Category Not es General Examination HEENT: unremarkable Heart: RSR Lungs: clear to auscultatio n Abdomen: bowel sounds present , soft and nontender, no organomegaly or masses, no guarding or rigidity Extremities: no leg edema General Appearance: NAD Skin: normal, no rash Neurologic Exam: Intact, gait normal Neck: supple, no lymphaden opathy Oral cavity: no lesions, mucosa m oist and WNL, no erythema Peripheral pulses: normal (2+) bilatera lly Chest: normal shape and exp ansion
--- OUTSIDE RECORDS SUMMARY | 2023-11-18 10:30 | XMS_ITS ---
Author Organization [facility] Address [address] [place] [id number] Care Team Providers Care Psychologist Military Personnel Name Role Phone Jacobo Marquez Primary Care Provider Alek Rodriguez Unavailable [phone] Lorena Vaughan Unavailable [phone] Allergies Allergen (clinical drug ingredient) Drug/Non Drug Allergy documented on EMR Reaction Allergy Type Onset Date Status erythromycin Erythromycin Unknown Drug Allergy A ctive metformin metFORMIN Unknown Drug Allergy Active Results Component Value Reference Range Notes P-Basic Metabolic Panel (BMP ) Reviewed date:11/25/2023 08:43:00 AM Interpretation:K+ 3.2, gluc 111 Performing Lab: Notes/Report: Test performed by [facility] [address] [place] [address] , [address], [place] [address] Lon Mia MD, Speech And Hearing Director CLIA: [id number] Sodium 141 135-145 mEq/L Potassium 3.2 3.5-5.3 mEq/L Chloride 102 97-108 mEq/L CO2 29 22-32 mEq/L Glucose 111 65-99 mg/dL BUN 8 6-20 mg/dL Creatinine 0.67 0.50-1.00 mg/dL Calcium 9.6 8.6-10.4 mg/dL eGFR by Creatinine 102 >59 mL/min/1.73m2 REASON FOR VISIT refills,broke toe Medications Medication SIG (Take, Route, Frequency, Duration) Notes Start Date End Date Status Levothyroxine Sodium 125 MCG 1 tab(s) orally once a day; Duration: 30 days Active Naproxen 500 MG 1 tab(s) orally 2 ti mes a day 09/04/2022 Active Fluticasone Propionate 50 MCG/ACT 1 spray(s) in each nostril once a day 09/21/2020 Active Potassium Chloride ER 10 MEQ 1 tablet with food Orally Once a day; Duration: 30 day(s) 08/07/2023 Active Lexapro 20 MG 1 tablet Orally Once a day; Duration: 30 day(s) 10/16/2023 Active Ondansetron 4 MG 1 tablet on the tong ue and allow to dissolve Orally three times a day as needed 07/21/2023 Active Montelukast Sodium 10 MG take 1 tablet b y mouth once daily Orally Once a day; Duration: 30 day(s) Active Vitamin D3 50 MCG (1999 UT) 1 capsule Or ally Once a day 07/16/2023 Active Vitamin B12 1000 MCG 1 tablet Orally Onc e a day 07/16/2023 Active Furosemide 40 MG take 1 tablet by alva once daily Orally once daily; Duration: 30 day(s) Active Mounjaro 7.5 MG/0.5ML 7.5 mg Subcutaneou s once a week 10/16/2023 Active Vital Signs Blood pressure systolic 120 mm Hg 11/18/19 24 Blood pressure diastolic 82 mm Hg 024 Heart Rate 64 /min 11/18/2023 Height 61 in 11/18/2023 Weight 183.8 lbs 11/18/2023 BMI 34.72 kg/m2 11/18/2023 Encounters Encounter Location Date Provider Diagnosis [facility] [facility] [address], [place] [id number] 11/18/2023 Lorena Vaughan Closed nondisplaced fracture of distal phalanx of lesser toe of left foot with routine healing, subsequent encounter S92.535D ; Hypokalemia E87.6 and Impaired fasting glucose R73.01 Assessments Encounter Date Diagnosis (ICD Code) Assessment Notes Treatment Notes Treatment Clinical Notes Section Notes 11/18/2023 Closed nondisplaced fracture of distal phalanx of lesser toe of left foot with routine healing, subsequent encounter (ICD-10 - S92.535D) Went to the ER on November 14 and has appt with Podiatry on November 29. Will need to be off work until podiatry appt as they cannot let her go back to work without wearing steel toe shoes and she is in a walking boot. 11/18/2023 Hypokalemia (ICD-10 - E87.6) 11/18/2023 Impaired fasting glucose (ICD-10 - R73.01) Doing well on mounjaro. She will call when her dose needs to be increased. Plan Of Treatment Treatment Notes Assessment Notes Closed nondisplaced fracture of distal phalanx of lesser toe of left foot with routine healing, subsequent encounter Went to the ER on November 14 and has appt with Podiatry on November 29. Will need to be off work until podiatry appt as they cannot let her go back to work without wearing steel toe shoes and she is in a walking boot. Impaired fasting glucose Doing well on m ounjaro. She will call when her dose needs to be increased. Next Appt Details Follow Up: via phone to repo rt test results, Reason: Progress Notes * ANETTE HOLTDOB:[birth year] (59 yo F)Acc No.[id number]:11/18/2023 Progress Notes Patient: ANETTE COOPER Provider: JULIO Weinberg :1965 A ge:58 Y S ex:Female Date:11/18/2023 Address:[address] [place] [address] [id number] Pcp:Jacobo Marquez Subjective: * Chief Complaints: * 1 . Refills,broke toe. * HPI: A nkle/Foot: The pt is here today with c/o pain in the left 4 th toe. Pt states she was getting ready for [employer] on Thursday and ran her foot into a kids riding toy. She was seen in the ER and told it was broken. She was given a walking boot and has an appt scheduled with podiatry on November 29. Pt states she is also needing refills sent to [facility] in [place]. * ROS: D ERMATOLOGY: no R stefany. n o H consuelo. G ASTROENTEROLOGY: no N ausea. n o V omiting. n o D iarrhea.? U ROLOGY: no D ifficulty urinating. n o B lood in urine. * Medical History: H ypertension, Hypothyroidism, Sleep apnea, Hyperlipidemia, Impaired fasting glucose, Depression, Anxiety, COVID 19 05/2020. * Surgical History: c -section x3 , cholecystectomy , total right thyroidectomy and parial left thyroidectomy/ Dr. 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 * Hospitalization/Major Diagno stic Procedure: s chel as above , [facility]-spider bite 08/15, [facility] - chest pain 12/19/2019. * Family History: [...] smoke. Alcohol: No. * Medications: T aking Mounjaro 7.5 MG/0.5ML Solution Pen-injector 7.5 mg Subcutaneous once a week , Taking Furosemide 40 MG Tablet take 1 tablet [...] food Orally Once a day , Taking Lexapro 20 MG Tablet 1 tablet Orally Once a day , Medication List reviewed and reconciled with the patient * Allergies: E rythromycin, metFORMIN. Objective: * Vitals: W t:183.8, Temp:98.0, BP:120/82, HR:64, Nurse:FERMÍN, Ht: 61, BMI:34.72. * Examination: G eneral Examination: General Appearance: N AD. C hest: n ormal shape and expansion. H eart: R SR. L ungs: c lear to auscultation. E xtremities: left 4th toe with ecchymosis spreading into the dorsum of the foot, pain along the 4th toe. Assessment: * Assessment: 1. C losed nondisplaced fracture of distal phalanx of lesser toe of left foot with routine healing, subsequent encounter - S92.535D (Primary) 2 . H ypokalemia - E87.6 ? 3 . I mpaired fasting glucose - R73.01 Plan: * Treatment: 2. H ypokalemia L AB: P-Basic Metabolic Panel (BMP) (Collection Date & Time - 11/18/2023 02:05 PM) K + 3.2, gluc 111 Value Reference Range B UN 8 6-20 - mg/dL * C alcium 9.6 8.6-10.4 - mg/dL * C hloride 102 97-108 - mEq/L * C O2 29 22-32 - mEq/L * C reatinine 0.67 0.50-1.00 - mg/dL * G lucose 111 H 65-99 - mg/dL * P otassium 3.2 L 3.5-5.3 - mEq/L * S odium 141 135-145 - mEq/L * e GFR by Creatinine 102 >59 - mL/min/1.73m2 * Lorena Vaughan 11/25/2023 8: 42:54 AM > see TE 3.?Impaired fasting glucose? Notes: Doing well on mounjaro. She will call when her dose needs to be increased.?? * Follow Up: v ia phone to report test results * Images: Billing Information: * Visit Code: 50775 Office Visit, Est Pt., Level 3. * Procedure Codes: * Electronic signature of JULIO Clay on 02/15/2025 at 01:29 PM EDT Sign off status: Pending * Provider: JULIO Weinberg Date: 0 11/18/2023 Generated for Tracy orosco/Sussy/Maral on: 0 02/15/2025 01:29 PM EDT History and Physical Notes * Examination Category Sub-Category Detail Notes Category Not es General Examination Heart: RSR Lungs: clear to auscultatio n Extremities: left 4th toe with ec chymosis spreading into the dorsum of the foot, pain along the 4th toe General Appearance: NAD Chest: normal shape and exp ansion
--- OUTSIDE RECORDS SUMMARY | 2024-09-21 12:15 | XMS_ITS ---
Author Organization [facility] Address [address] [place] [id number] Care Team Providers Care Maintenance Engineer Name Role Phone Jacobo Marquez Primary Care Provider Alek Rodriguez Unavailable [phone] Lorena Vaughan Unavailable [phone] Allergies Allergen (clinical drug ingredient) Drug/Non Drug Allergy documented on EMR Reaction Allergy Type Onset Date Status erythromycin Erythromycin Unknown Drug Allergy A ctive metformin metFORMIN Unknown Drug Allergy Active Results Component Value Reference Range Notes H-CBC Reviewed date:09/22/2024 02:12:22 PM Interpretation:mchc 31.7, mpv 11.1 Performing Lab: Notes/Report: WBC 6.7 4.8-10.8 K/mm3 RBC 4.68 4.20-5.40 M/mm3 HGB 12.7 12.2-16.2 g/dL HCT 40.1 37.0-47.0 % MCV 85.7 81-99 fl MCH 27.1 27.0-31.2 pg MCHC 31.7 31.8-35.4 g/dL RDW-SD 45.1 RDW 14.4 11.5-17.5 % PLT 217 142-424 K/mm3 MPV 11.1 7.4-10.4 fl NE% 50.8 37.0-80.0 % LY% 41.0 10-50 % MO% 6.1 1.7-9.3 % EO% 1.2 0.1-12.0 % BA% 0.6 0.1-2.0 % NRBC% 0 NE# 3.4 1.8-7.8 K/mm3 LY# 2.8 0.7-4.5 K/mm3 MO# 0.4 0.1-1.0 K/mm3 EO# 0.1 0.0-0.4 Kmm3 BA# 0.0 0-0.2 K/mm3 NRBC# 0 H-VITAMIN D Reviewed date:09/22/2024 02:12:22 PM Interpretation:29.0 Performing Lab: Notes/Report: TVITD 29.0 30-100 ng/mL Deficient <20 ng/mL Insufficient 20-30 ng/mL Sufficient 30-100 ng/mL Potential Toxicity >100 ng/mL H-Lipid Panel Reviewed date:09/22/2024 02:12:22 PM Interpretation:Normal Performing Lab: Notes/Report: Patient Fasting? Y TRIG 74 30-150 mg/dl CHOL 181 140-200 mg/dl DLDL 101.58 100-129 mg/dL VLDL 15 0-40 mg/dL HDL 51 40-60 mg/dl CHLHDL 3.5 1-3.5 H-CMP Reviewed date:09/22/2024 02:12:22 PM Interpretation:K 3.4, CO2 35 Performing Lab: Notes/Report: NA 141 136-145 mmol/L K 3.4 3.5-5.1 mmoL/L CL 100 98-107 mmol/L CO2 35 22.0-30.0 mmol/L GAP 9.4 5-15 mEq/L BUN 10 7-17 mg/dl CREATT 0.60 0.52-1.04 mg/dl GFRAA 125 >60 ML/MIN EGFR 103 >60 ml/min GLU 83 74-100 mg/dl CA 9.2 8.4-10.2 mg/dl BILIT 1.0 0.2-1.3 mg/dl AST 20 14-36 U/L ALT 18 12-78 U/L TP 6.4 6.3-8.2 g/dl ALB 3.9 3.5-5.0 g/dl GLOB 2.5 1.3-3.2 g/dL AGRATIO 1.6 1.1-1.8 ALP 62 38-126 U/L H-Glycohemoglobin A1C Reviewed date:09/22/2024 02:12:22 PM Interpretation:4.8 Performing Lab: Notes/Report: HGBA1C 4.8 4.0-6.0 % < 6% Non-Diabetic Level < 7% Controlled Diabetic Level > 8% Poorly Controlled Diabetic Level H-VITAMIN B12 Reviewed date:09/22/2024 02:12:22 PM Interpretation:Normal Performing Lab: Notes/Report: VITB12 306 239-931 pg/mL X ray : Spine, sacrum and co ccyx Reviewed date:09/22/2024 02:12:22 PM Interpretation:Negative Performing Lab: Notes/Report: Negative REASON FOR VISIT ckup & pain in tailbone Medications Medication SIG (Take, Route, Frequency, Duration) Notes Start Date End Date Status Furosemide 40 MG Take 1 tablet by mouth once daily; Duration: 15 Active Montelukast Sodium 10 MG Take 1 tablet by mouth once daily; Duration: 90 Active Escitalopram Oxalate 20 MG 1 tablet Orally Once a day; Duration: 15 days Active Potassium Chloride ER 20 MEQ 1 tablet with food Orally Once a day; Duration: 30 day(s) 11/25/2023 Active Levothyroxine Sodium 125 MCG 1 tab(s) orally once a day; Duration: 30 days Active Naproxen 500 MG 1 tab(s) orally 2 times a day 09/04/2022 Active Fluticasone Propionate 50 MCG/ACT 1 spray(s) in each nostril once a day 09/21/2020 Active Lexapro 20 MG 1 tablet Orally Once a day; Duration: 30 day(s) Active Ondansetron 4 MG 1 tablet on the tongue and allow to dissolve Orally three times a day as needed 07/21/2023 Active Vitamin B12 1000 MCG 1 tablet Orally Onc e a day 07/16/2023 Active Mounjaro 12.5 MG/0.5ML 12.5 mg Subcutane ous once a week PT NEEDS APPT Active Vitamin D3 50 MCG (2000 UT) 1 capsule Orally Once a day 07/16/2023 Active Problems Problem Type SNOMED Code ICD Code Onset Dates Problem Status W/U Status Risk Notes Problem Pain in coccyx (finding) (61615501) Coccyx pain (M53.3) Active confirmed Vital Signs Blood pressure systolic 102 mm Hg 09/22/19 25 Blood pressure diastolic 60 mm Hg 025 Heart Rate 62 /min 09/21/2024 Height 61 in 09/21/2024 Weight 119.4 lbs 09/21/2024 BMI 22.56 kg/m2 09/21/2024 Encounters Encounter Location Date Provider Diagnosis [facility] [address] [place] [phone] 09/21/2024 Lorena Vaughan Impaired fasting glu cose R73.01 ; Depression with anxiety F41.8 ; Essential hypertension, hypertension with unspecified goal I10 ; Elevated bilirubin R17 ; Vitamin B12 deficiency E53.8 ; Vitamin D deficiency E55.9 ; Coccyx pain M53.3 ; Lipid screening Z13.220 and BMI 22.0-22.9, adult Z68.22 Assessments Encounter Date Diagnosis (ICD Code) Assessment Notes Treatment Notes Treatment Clinical Notes Section Notes 09/21/2024 Impaired fasting glucose (ICD-10 - R73.01) Doing well on mounjaro. Will increase dose. 09/21/2024 Depression with anxiety (ICD-10 - F41.8) 09/21/2024 Essential hypertension, hypertension with unspecified goal (ICD-10 - I10) 09/21/2024 Elevated bilirubin (ICD-10 - R17) 09/21/2024 Vitamin B12 deficiency (ICD-10 - E53.8) 09/21/2024 Vitamin D deficiency (ICD-10 - E55.9) 09/21/2024 Coccyx pain (ICD-10 - M53.3) 09/21/2024 Lipid screening (ICD-10 - Z13.220) 09/21/2024 BMI 22.0-22.9, adult (ICD-10 - Z68.22) Plan Of Treatment Medication Medication Name Sig Start Date Stop Date Notes Lexapro 20 MG 1 tablet Orally Once a day; Duration: 30 day(s) Mounjaro 12.5 MG/0.5ML 12.5 mg Subcutane ous once a week PT NEEDS APPT Treatment Notes Assessment Notes Impaired fasting glucose Doing well on m ounjaro. Will increase dose. Next Appt Details Follow Up: via phone to repo rt test results, Reason: Progress Notes * DEN HOLT:[birth year] (59 yo F)Acc No.[id number]:09/21/2024 Progress Notes Patient: ANETTE COOPER Provider: JULIO Weinberg :1965 A ge:58 Y S ex:Female Date:09/21/2024 Address:[address] [facility] [address] [id number] Pcp:Jacobo Marquez Subjective: * Chief Complaints: * 1 . Ckup & pain in tailbone. * HPI: C ardiology: The patient is here for a check up and fasting labs. Pt states she has some pain in her tail bone for 2-3 weeks. Pt states the pain is not improving. Pt denies any known injury or fall. Denies : Chest Pain. D enies : Short of Breath. D enies : Dizziness. D enies : Palpitations. * ROS: D ERMATOLOGY: no R stefany. 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 * Hospitalization/Major Diagno stic Procedure: s chel as above , [facility]-spider bite 08/15, [facility] - chest pain 12/19/2019. * Family [...] smoke. Alcohol: No. * Medications: T aking Vitamin D3 50 MCG (2000 UT) Capsule 1 capsule Orally Once a day , Taking Vitamin B12 1000 MCG Tablet Extended Release 1 tablet Orally Once a day , Taking Ondansetron 4 MG Tablet Disintegrating 1 tablet on the tongue and allow to dissolve Orally three times a day as needed , Taking Naproxen 500 MG Tablet 1 tab(s) orally 2 times a day , Taking Fluticasone Propionate 50 MCG/ACT Suspension 1 spray(s) in each nostril once a day , Taking Potassium Chloride ER 20 MEQ Tablet Extended Release 1 tablet with food Orally Once a day , Taking Levothyroxine Sodium 125 MCG Tablet 1 tab(s) orally once a day , Taking Montelukast Sodium 10 MG Tablet Take 1 tablet by mouth once daily , Taking Escitalopram Oxalate 20 MG Tablet 1 tablet Orally Once a day , Taking Mounjaro 12.5 MG/0.5ML Solution Auto-injector INJECT 1 SYRINGE SUBCUTANEOUSLY ONCE A WEEK , Notes to Pharmacist: PT NEEDS APPT, Taking Furosemide 40 MG Tablet Take 1 tablet by mouth once daily , Medication List reviewed and reconciled with the patient * Allergies: E rythromycin, metFORMIN. Objective: * Vitals: W t: 119.4, Temp: 98.2, BP: 102/60, HR: 62, Nurse: FERMÍN, Ht: 61, BMI:22.56. * Examination: G eneral Examination: General Appearance: [...] P eripheral pulses: n ormal (2+) bilaterally. B ack: ttp in the coccygeal area. E xtremities: n o leg edema. Assessment: * Assessment: 1. I mpaired fasting glucose - R73.01 (Primary) 2 . D epression with anxiety - F41.8 3 . E ssential hypertension, hypertension with unspecified goal - I10? 4. E levated bilirubin - R17 5 . V itamin B12 deficiency - E53.8 6 . V itamin D deficiency - E55.9 7 . C occyx pain - M53.3 8 . L ipid screening - Z13.220 9 . B DE 22.0-22.9, adult - Z68.22 Plan: * Treatment: Value Reference Range N A 141 136-145 - mmol/L * K 3.4 L 3.5-5.1 - mmoL/L * C L 100 98-107 - mmol/L * C O2 35 H 22.0-30.0 - mmol/L * G AP 9.4 5-15 - mEq/L * B UN 10 7-17 - mg/dl * C REATT 0.60 0.52-1.04 - mg/dl * G FRAA 125 >60 - ML/MIN * E GFR 103 >60 - ml/min * G EVA 83 74-100 - mg/dl * C A 9.2 8.4-10.2 - mg/dl * B ILIT 1.0 0.2-1.3 - mg/dl * A ST 20 14-36 - U/L * A LT 18 12-78 - U/L * T P 6.4 6.3-8.2 - g/dl * A LB 3.9 3.5-5.0 - g/dl * G LOB 2.5 1.3-3.2 - g/dL * A GRATIO 1.6 1.1-1.8 - * A LP 62 38-126 - U/L * Geena Smith 09/22/2024 02: 12:13 PM > See phone encounter ?LAB: H-Glycohemoglobin A1C (Collection Date & Time - 09/22/2024 07:27 AM)? 4.8* Value Reference Range H GBA1C 4.8 4.0-6.0 - % * Geena Smith 09/22/2024 02: 12:13 PM > See phone encounter Notes: Doing well on mounjaro. Will increase dose.??2.?Depression with anxiety? Refill Lexapro Tablet, 20 MG, 1 tablet, Orally, Once a day, 30 day(s), 30, Refills 5.??3.?Essential hypertension, hypertension with unspecified goal?LAB: H-CBC (Collection Date & Time - 09/22/2024 07:27 AM)?mchc 31.7, mpv 11.1* Value Reference Range W BC 6.7 4.8-10.8 - K/mm3 * R BC 4.68 4.20-5.40 - M/mm3 * H GB 12.7 12.2-16.2 - g/dL * H CT 40.1 37.0-47.0 - % * M CV 85.7 81-99 - fl * M CH 27.1 27.0-31.2 - pg * M CHC 31.7 L 31.8-35.4 - g/dL * R DW 14.4 11.5-17.5 - % * P LT 217 142-424 - K/mm3 * M PV 11.1 H 7.4-10.4 - fl * N E% 50.8 37.0-80.0 - % * L Y% 41.0 10-50 - % * M O% 6.1 1.7-9.3 - % * E O% 1.2 0.1-12.0 - % * B A% 0.6 0.1-2.0 - % * N E# 3.4 1.8-7.8 - K/mm3 * L Y# 2.8 0.7-4.5 - K/mm3 * M O# 0.4 0.1-1.0 - K/mm3 * E O# 0.1 0.0-0.4 - Kmm3 * B A# 0.0 0-0.2 - K/mm3 * R DW-SD 45.1 - fL * N RBC% 0 - % * N RBC# 0 - 10 3/uL * Geena Smith 09/22/2024 02: 12:13 PM > See phone encounter 4.?Vitamin B12 deficiency?LAB: H-VITAMIN B12 (Collection Date & Time - 09/22/2024 07:27 AM)?Normal* Value Reference Range V ITB12 306 239-931 - pg/mL * Geena Smith 09/22/2024 02: 12:13 PM > See phone encounter 5.?Vitamin D deficiency?LAB: H-VITAMIN D (Collection Date & Time - 09/22/2024 07:27 AM)?29.0* Value Reference Range T VITD 29.0 L 30-100 - ng/mL * Luis, Geena 09/22/2024 02: 12:13 PM > See phone encounter 6.?Coccyx pain?Imaging: X ray : Spine, sacrum and coccyx (Performed Date - 09/21/2024)? Negative* LuisGeena 09/22/2024 02: 12:13 PM > See phone encounter 7.?Lipid screening?LAB: H-Lipid Panel (Collection Date & Time - 09/22/2024 07:27 AM)?Normal* Value Reference Range T RIG 74 30-150 - mg/dl * C HOL 181 140-200 - mg/dl * D LDL 101.58 100-129 - mg/dL * V LDL 15 0-40 - mg/dL * H DL 51 40-60 - mg/dl * C HLHDL 3.5 1-3.5 - * Geena Smith 09/22/2024 02: 12:13 PM > See phone encounter * Procedure Codes: 3 074F SYST BP LT 130 MM HG, 3078F DIAST BP < 80 MM HG, 3044F HG A1C LEVEL LT 7.0% * Follow Up: v ia phone to report test results * Images: Billing Information: * Visit Code: 98829 Office Visit, Est Pt., Level 4. * Procedure Codes: 3074F SYST BP LT 130 MM HG. 3078F DIAST BP < 80 MM HG. 3044F HG A1C LEVEL LT 7.0%. * Electronic signature of JULIO Clay on 02/15/2025 at 01:28 PM EDT Sign off status: Pending * Provider: JULIO Weinberg Date: 0 09/21/2024 Generated for Tracy orosco/Sussy/Anoopitting on: 0 02/15/2025 01:28 PM EDT History and Physical Notes * HPI (History of Present Illness) Category Sub-Category Detail Notes Category Not es Cardiology Short of Breath Chest Pain Palpitations Dizziness Examination Category Sub-Category Detail Notes Category Not [...] erythema Peripheral pulses: normal (2+) bilatera lly Back: ttp in the coccygeal area Chest: normal shape and exp ansion
--- OUTSIDE RECORDS SUMMARY | 2024-10-07 06:00 | XMS_ITS ---
Author Organization [facility] Address [address] [place] [id number] Care Team Providers Care Topology Professor Name Role Phone Jacobo Marquez Primary Care Provider [phone] Alek Rodriguez Unavailable [phone] Lorena Vaughan Unavailable [phone] Allergies Allergen (clinical drug ingredient) Drug/Non Drug Allergy documented on EMR Reaction Allergy Type Onset Date Status erythromycin Erythromycin Unknown Drug Allergy A ctive metformin metFORMIN Unknown Drug Allergy Active Results Component Value Reference Range Notes P-Basic Metabolic Panel (BMP ) Reviewed date:10/20/2024 12:38:12 PM Interpretation:K 3.3 Performing Lab: Notes/Report: Test performed by [facility], [place] [place] [address] , [address], [place] [address] Lon Mai MD, Golf Ball Cover Treater CLIA: [id number] Sodium 141 135-145 mmol/L Potassium 3.3 3.5-5.3 [...] Encounter Location Date Provider Diagnosis [facility] [address], [place] [id number] 10/07/2024 Lorena Vaughan Hypokalemia E87.6 ; Vitamin [...] * ANETTE HOLTDOB:[birth year] (59 yo F)Acc No.[id number]:10/07/2024 Progress Notes Patient: ANETTE COOPER Provider: JULIO Weinberg :1965 A ge:59 Y S ex:Female Date:10/07/2024 Address:[address] [facility] [id number] Pcp:Jacobo Marquez Subjective: * Chief Complaints: * [...] face , endometrial hyperplasia with endometrial ablation [facility] 09/2006, Complete Hysterectomy 06/12/2017, 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 * Hospitalization/Major Diagno stic Procedure: [facility]-spider bite 07/2016, [facility] - chest pain 12/19/2019. * Family [...] occygeal pain - M53.3 4 . B SC 24.0-24.9, adult - Z68.24? Plan: * Treatment: [...] deficiency) * Procedure Codes: J 3420 B-12, 21763 ADMINISTRATION OF INJECTION, 3074F SYST BP LT 130 MM HG, 3078F DIAST BP < 80 MM HG * Follow Up: v ia phone to report test results * Images: Billing Information: * Visit Code: 30537 Office Visit, Est Pt., Level 3. Modifiers: 25 * Procedure Codes: J3420 B-12. 57557 ADMINISTRATION OF INJECTION. 3074F SYST BP LT 130 MM HG. 3078F DIAST BP < 80 MM HG. * Electronic signature of JULIO Clay on 02/15/2025 at 01:28 PM EDT Sign off status: Pending * Provider: JULIO Weinberg Date: 0 10/07/2024 Generated for Tracy orosco/Sussy/eTransmitting on: 0 02/15/2025 01:28 PM EDT History [...]
[2025-02-14 15:00] LABS: Coronavirus 19, PCR Not Detected (NotDetected); Influenza A, PCR Not Detected (NotDetected); Influenza B, PCR Not Detected (NotDetected)
--- OUTSIDE RECORDS SUMMARY | 2025-02-15 13:29 | XMS_ITS | Patient Health Record ---
Author Organization [facility] Address [address] [place] [id number] Care Team Providers Care Carrier Driver Name Role Phone Jacobo Marquez Primary Care Provider [phone] Alek Rodriguez Unavailable [phone] Lorena Vaughan Unavailable [phone] Allergies Allergen (clinical drug ingredient) Drug/Non Drug [...] 02:12:22 PM Interpretation:Negative Performing Lab: Notes/Report: Negative P-Basic Metabolic Panel (BMP ) Reviewed date:10/20/2024 12:38:12 PM Interpretation:K 3.3 Performing Lab: Notes/Report: Test performed by [facility], [address] , [address] , [place] [address] Lon Mai MD, Technical Documentation Specialist CLIA: [id number] Sodium 141 135-145 mmol/L Potassium 3.3 3.5-5.3 mmol/L Chloride 101 97-108 mmol/L CO2 30 22-32 mmol/L Glucose 92 65-99 mg/dL BUN 12 6-20 mg/dL Creatinine 0.60 0.50-1.00 mg/dL Calcium 9.0 8.6-10.4 mg/dL eGFR by Creatinine 105 >59 mL/min/1.73m2 Mammogram Reviewed date:05/26/2024 12:32:44 PM Interpretation:Negative Performing Lab: Notes/Report: Negative result Negative Medications Medication SIG (Take, Route, Frequency, Duration) Notes Start Date End Date Status Escitalopram Oxalate 20 MG 1 tablet Orally Once a day; Duration: 15 days Active Mounjaro 12.5 MG/0.5ML 12.5 mg Subcutane ous once a week PT NEEDS APPT Active Furosemide 40 MG Take 1 tablet by mouth once daily; Duration: 90 Active Montelukast Sodium 10 MG Take 1 tablet by mouth once daily; Duration: 90 Active Fluticasone Propionate 50 MCG/ACT 1 spray(s) in each nostril once a day 09/21/2020 Active Ondansetron 4 MG 1 tablet on the tongue and allow to dissolve Orally three times a day as needed 07/21/2023 Active Naproxen 500 MG 1 tab(s) orally 2 times a day 09/04/2022 Active Vitamin D3 50 MCG (2000 UT) 1 capsule Orally Once a day 07/16/2023 Active Vitamin B12 1000 MCG 1 tablet Orally Onc e a day 07/16/2023 Active Levothyroxine Sodium 125 MCG Take 1 tablet by mouth once daily for 30 days; Duration: 30 Active Potassium Chloride ER 20 MEQ 1 tablet with food Orally Three times a day 11/25/2023 Active Lexapro 20 MG 1 tablet Orally Once a day; Duration: 30 day(s) Active Immunizations Vaccine Route Administration Date Status Comme nts xFluzone (6mos and older)-trivalent IM Intramuscular 03/29/2013 Administered Hepatitis A (adult) IM Intramuscular 05/13/2018 Administer ed Hepatitis A (adult) IM Intramuscular 11/19/2018 Administer ed Problems Problem Type SNOMED Code ICD Code Onset Dates Problem Status W/U Status Risk Notes Problem Vitamin D deficiency (10526167) Vitamin D deficiency (E55.9) Active confirmed Problem Abnormal mammogram (612712767) Abnormal mammogram (R92.8) Active confirmed Problem Postherpetic neuralgia (2142465) Post herpetic neuralgia (B02.29) Active confirmed Problem Environmental allergy (195607849) Environmental allergies (Z91.048) Active confirmed Problem Liver function tests abnormal (451354343) Abnormal liver function test (R79.89) Active confirmed Problem Mixed anxiety and depressive disorder (458705512) Depression with anxiety (F41.8) Active confirmed Problem Localized edema (6145142) Localized edema (R60.0) Active confirmed Problem 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) Fracture of unspecified phalanx of right ring finger, subsequent encounter for fracture with nonunion (S62.604K) Active confirmed Problem Sciatica (96539314) Sciatica of right side (M54.31) Active confirmed Problem Acquired hypothyroidism (463287957) Acquired hypothyroidism (E03.9) Active confirmed Problem Allergic rhinitis (36984171) Allergic rhinitis (J30.9) Active confirmed Problem Sleep disorder (22702319) Sleep disorder (G47.9) Active confirmed Problem Liver disease (665170954) Hepatic lesion (K76.9) Active confirmed Problem Obstructive sleep apnea syndrome (21475630) NICOLE (obstructive sleep apnea) (G47.33) Active confirmed Problem Obese class II (187852923126956) BMI 38.0-38.9,adult (Z68.38) Active confirmed Problem Hyperlipidaemia (88975011) Hyperlipidemia, unspecified hyperlipidemia type (E78.5) Active confirmed Problem Essential hypertension (71425159) Essential hypertension, hypertension with unspecified goal (I10) Active confirmed Problem 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) Active confirmed Problem Allergic rhinitis caused by pollen (45631449) Seasonal allergic rhinitis due to pollen (J30.1) Active confirmed Problem Body mass index 40+ - severely obese (966200980) Body mass index (BMI) of 40.1 to 44.9 in adult (Z68.41) Active confirmed Problem Pain in coccyx (finding) (29103577) Coccyx pain (M53.3) Active confirmed Problem Type II diabetes mellitus without complication (473962892) Type 2 diabetes mellitus without complication, without long-term current use of insulin (E11.9) Active confirmed Problem Thyroid goiter (0029441) Thyroid goiter (E04.9) Active confirmed Problem Hemangioma of liver (92494917) Hemangioma of liver (D18.03) Active confirmed Problem Fibrocystic breast changes (82678283) Fibrocystic breast changes, unspecified laterality (N60.19) Active confirmed Problem Fibrocystic breast changes (87394433) Fibrocystic breast disease (FCBD), unspecified laterality (N60.19) Active confirmed Problem Allergic rhinitis (83235297) Non-seasonal allergic rhinitis, unspecified trigger (J30.89) Active confirmed Problem Radiology result abnormal (796569049) Abnormal chest CT (R93.89) Active confirmed Vital Signs Heart Rate 71 /min 10/07/2024 Blood pressure diastolic 60 mm Hg 10/07/2024 Height 61 in 10/07/2024 Blood pressure systolic 110 mm Hg 10/07/2024 Weight 127.2 lbs 10/07/2024 BMI 24.03 kg/m2 10/07/2024 Encounters Encounter Location Date Provider Diagnosis [facility] [address] [facility] [address] [place], [place] [id number] 09/21/2024 Lorena Vaughan Impaired fasting glu cose R73.01 ; Depression with anxiety F41.8 ; Essential hypertension, hypertension with unspecified goal I10 ; Elevated bilirubin R17 ; Vitamin B12 deficiency E53.8 ; Vitamin D deficiency E55.9 ; Coccyx pain M53.3 ; Lipid screening Z13.220 and BMI 22.0-22.9, adult Z68.22 [facility] [address] [place], [place] [id number] 10/07/2024 Lorena Crowdy Hypokalemia E87.6 ; Vitamin B12 deficiency E53.8 ; Coccygeal pain M53.3 and BMI 24.0-24.9, adult Z68.24 [facility] [address] [place], [place] [id number] 04/15/2024 Lorena Crowdy [facility] [address] [place], [place] [id number] 06/02/2024 Lorena Crowdy [facility] [address] [facility] [address] [place], [place] [id number] 09/22/2024 Lorena Crowdy [facility] [address] [facility] [address] [place], [place] [id number] 10/20/2024 Lorena Crowdy Assessments Encounter Date Diagnosis (ICD Code) Assessment Notes Treatment Notes Treatment Clinical Notes Section Notes 09/21/2024 Depression with anxiety (ICD-10 - F41.8) 09/21/2024 Impaired fasting glucose (ICD-10 - R73.01) Doing well on mounjaro. Will increase dose. 10/07/2024 Hypokalemia (ICD-10 - E87.6) 10/07/2024 Vitamin B12 deficiency (ICD-10 - E53.8) Will need a B12 shot once a week x 4 weeks and will then give once a month 10/07/2024 Coccygeal pain (ICD-10 - M53.3) X-rays were normal. Will try getting a butterfly pillow to sit on. If pain persists, will need more imaging. 09/21/2024 Essential hypertension, hypertension with unspecified goal (ICD-10 - I10) 09/21/2024 Elevated bilirubin (ICD-10 - R17) 10/07/2024 BMI 24.0-24.9, adult (ICD-10 - Z68.24) 09/21/2024 Vitamin B12 deficiency (ICD-10 - E53.8) 09/21/2024 Vitamin D deficiency (ICD-10 - E55.9) 09/21/2024 Coccyx pain (ICD-10 - M53.3) 09/21/2024 Lipid screening (ICD-10 - Z13.220) 09/21/2024 BMI 22.0-22.9, adult (ICD-10 - Z68.22) Plan Of Treatment No Information Insurance Providers Payer Name Payer Address Payer Phone Subscriber Number Group Number Insured Name Patient Relationship to Insured Coverage Start Date Coverage End Date [employer] [address] [place] [address] [id number] ANETTE HOLT Self - patient is the insured Medications Administered Medication Instructions Date of Administration Dosage Notes B-12 10/07/2024 1 mL Dexamethasone 07/10/2010 1.0 mL Medical (General) History Medical History History ICD Code Hypertension Hypothyroidism sleep apnea hyperlipidemia Impaired fasting glucose depression anxiety COVID 19 05/2020 Surgical History Surgery Date(Month/Year) x3 cholecystectomy total right thyroidectomy and parial lef t thyroidectomy/ Dr. 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
== END 2025-02-14 23:59 | disposition home or self-care (01) ==
LOC: LAB.DROPOF 02-15 13:12
PROVIDERS: PCP Student in an Organized Health Care Education/Training Program; Visit Provider Student in an Organized Health Care Education/Training Program
DX: J06.9 Acute upper respiratory infection, unspecified (principal)
CPT/HCPCS: 87636

== ENCOUNTER 2025-02-16 11:26 | Outpatient (CLI) | payer BC, SELFPAY ==
--- OUTSIDE RECORDS SUMMARY | 2023-10-16 05:00 | XMS_ITS ---
Author Organization [facility] Address [address] [place] Francis [id number] Care Team Providers Care Child Support Case Officer Name Role Phone Jacobo Marquez Primary Care Provider Alek Rodriguez Unavailable [phone] Lorena Vaughan Unavailable [phone] Allergies Allergen (clinical drug ingredient) Drug/Non Drug [...] 102 Performing Lab: Notes/Report: Test performed by [facility] [address] [facility] , [address], [place] [address] Lon Mai MD, Complaint Investigator CLIA: [id number] Sodium 143 135-145 mEq/L Potassium 3.1 3.5-5.3 [...] Interpretation:32.5 Performing Lab: Notes/Report: Test performed by [facility], [facility] [address] [place] [address] , [facility], [place] [address] Lon Mai MD, Complaint Investigator CLIA: [id number] Vitamin D 25-Hydroxy 32.5 30.0-100.0 ng/mL Interpretation [...] 10/16/2023 Encounters Encounter Location Date Provider Diagnosis [facility] [address] [facility] [address] [place], [place] [address], [place] [phone] 10/16/2023 Lorena Vaughan Impaired fasting glu cose [...] rt test results, Reason: Progress Notes * NAETTE HOLTDOB:[birth year] (59 yo F)Acc No.[id number]:10/16/2023 Progress Notes Patient: ANETTE COOPER Provider: JULIO Weinberg :1965 A ge:58 Y S ex:Female Date:10/16/2023 Address:[address], [id number] Pcp:Jacobo Marquez Subjective: * Chief Complaints: * [...] face , endometrial hyperplasia with endometrial ablation [facility] October 05, Complete Hysterectomy Jun 12, 2017, 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 * Hospitalization/Major Diagno stic Procedure: s chel as above , [facility]-spider bite 08/15, [facility] - chest pain 12/19/2019. * [...] Procedure Codes: 3 6416 CAPILLARY BLOOD DRAW, [address] GLYCATED HEMOGLOBIN TEST, Modifiers: QW * Follow Up: v ia phone to report test results * Images: Billing Information: * Visit Code: 71384 Office Visit, Est Pt., Level 4. * Procedure Codes: 27068 CAPILLARY BLOOD DRAW. 64205 GLYCATED HEMOGLOBIN TEST. Modifiers: QW * Electronic signature of JULIO Clay on 02/17/2025 at 01:21 PM EDT Sign off status: Pending * Provider: JULIO Weinberg Date: 0 10/16/2023 Generated for Suzani ng/Faxing/eTransmitting on: 0 02/17/2025 01:21 PM EDT History and Physical Notes * [...]
--- OUTSIDE RECORDS SUMMARY | 2023-11-18 10:30 | XMS_ITS ---
Author Organization [facility] Address [address] [place] [id number] Care Team Providers Care Legal Practice Manager Name Role Phone Jacobo Marquez Primary Care Provider [phone] Alek Rodriguez Unavailable [phone] Lorena Vaughan Unavailable [phone] Allergies Allergen (clinical drug ingredient) Drug/Non Drug Allergy documented on EMR Reaction Allergy Type Onset Date Status erythromycin Erythromycin Unknown Drug Allergy A ctive metformin metFORMIN Unknown Drug Allergy Active Results Component Value Reference Range Notes P-Basic Metabolic Panel (BMP ) Reviewed date:11/25/2023 08:43:00 AM Interpretation:K+ 3.2, gluc 111 Performing Lab: Notes/Report: Test performed by [facility] [address] [place] [address] , [address], [place] [address] Lon Mai MD, Artificial Breeding Distributor CLIA: [id number] Sodium 141 135-145 mEq/L Potassium 3.2 3.5-5.3 [...] 11/18/2023 Encounters Encounter Location Date Provider Diagnosis [facility] [address], [place] [id number] 11/18/2023 Lorena Vaughan Closed nondisplaced fracture of [...] * ANETTE HOLTDOB:[birth year] (59 yo F)Acc No.[id number]:11/18/2023 Progress Notes Patient: ANETTE COOPER Provider: JULIO Weinberg :1965 A ge:58 Y S ex:Female Date:11/18/2023 Address:[address] [place] [address] [id number] Pcp:Jacobo Marquez Subjective: * Chief Complaints: * 1 . Refills,broke toe. * HPI: A nkle/Foot: The pt is here today with c/o pain in the left 4 th toe. Pt states she was getting ready for [employer] on Thursday and ran her foot into a kids riding toy. She was seen in the ER and told it was broken. She was given a walking boot and has an appt scheduled with podiatry on November 29. Pt states she is also needing refills sent to [facility] in [place]. * ROS: D ERMATOLOGY: no R stefany. 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 * Hospitalization/Major Diagno stic Procedure: s chel as above , [facility]-spider bite 08/15, [facility] - chest pain 12/19/2019. * Family History: [...] * Images: Billing Information: * Visit Code: 53628 Office Visit, Est Pt., Level 3. * Procedure Codes: * Electronic signature of JULIO Clay on 02/17/2025 at 01:21 PM EDT Sign off status: Pending * Provider: JULIO Weinberg Date: 0 11/18/2023 Generated for Tracy orosco/Sussy/Maral on: 0 02/17/2025 01:21 PM EDT History and Physical Notes * Examination Category Sub-Category Detail Notes Category Not es General Examination Heart: RSR Lungs: clear to auscultatio n Extremities: left 4th toe with ec chymosis spreading into the dorsum of the foot, pain along the 4th toe General Appearance: NAD Chest: normal shape and exp ansion
--- OUTSIDE RECORDS SUMMARY | 2024-09-21 12:15 | XMS_ITS ---
Author Organization [facility] Address [address] [place] [phone] Care Team Providers Care Medical Coding Technician Name Role Phone Jacobo Marquez Primary Care Provider Alek Rodriguez Unavailable [phone] Lorena Vaughan Unavailable [phone] Allergies Allergen (clinical drug ingredient) Drug/Non Drug [...] Risk Notes Problem Pain in coccyx (finding) (05627066) Coccyx pain (M53.3) Active confirmed Vital Signs Blood pressure systolic 102 mm Hg 09/22/19 25 Blood pressure diastolic 60 mm Hg 025 Heart Rate 62 /min 09/21/2024 Height 61 in 09/21/2024 Weight 119.4 lbs 09/21/2024 BMI 22.56 kg/m2 09/21/2024 Encounters Encounter Location Date Provider Diagnosis [facility] [address] [place] [phone] 09/21/2024 Lorena Vaughan Impaired fasting glu cose [...] * DEN HOLT:[birth year] (59 yo F)Acc No.[id number]:09/21/2024 Progress Notes Patient: ANETTE COOPER Provider: JULIO Weinberg :1965 A ge:58 Y S ex:Female Date:09/21/2024 Address:[address] [facility] [address] [facility] [address] [id number] Pcp:Jacobo Marquez Subjective: * Chief Complaints: * [...] face , endometrial hyperplasia with endometrial ablation [facility] October 05, Complete Hysterectomy Jun 12, 2017, 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 * Hospitalization/Major Diagno stic Procedure: s chel as above , [facility]-spider bite 08/15, [facility] - chest pain 12/19/2019. * Family [...] ipid screening - Z13.220 9 . B NM 22.0-22.9, adult - Z68.22 Plan: * Treatment: [...] and coccyx (Performed Date - 09/21/2024)? Negative* Luis Geena 09/22/2024 02: 12:13 PM > See [...] * Images: Billing Information: * Visit Code: 88102 Office Visit, Est Pt., Level 4. * Procedure Codes: 3074F SYST BP LT 130 MM HG. 3078F DIAST BP < 80 MM HG. 3044F HG A1C LEVEL LT 7.0%. * Electronic signature of JULIO Clay on 02/17/2025 at 01:20 PM EDT Sign off status: Pending * Provider: JULIO Weinberg Date: 0 09/21/2024 Generated for Tracy orosco/Sussy/Anoopitting on: 0 02/17/2025 01:20 PM EDT History and Physical Notes * [...]
--- OUTSIDE RECORDS SUMMARY | 2024-10-07 06:00 | XMS_ITS ---
Author Organization [facility] Address [address] [place] [phone] Care Team Providers Care Public Health Director Name Role Phone Jacobo Marquez Primary Care Provider [phone] Alek Rodriguez Unavailable [phone] Lorena Vaughan Unavailable [phone] Allergies Allergen (clinical drug ingredient) Drug/Non Drug Allergy documented on EMR Reaction Allergy Type Onset Date Status erythromycin Erythromycin Unknown Drug Allergy A ctive metformin metFORMIN Unknown Drug Allergy Active Results Component Value Reference Range Notes P-Basic Metabolic Panel (BMP ) Reviewed date:10/20/2024 12:38:12 PM Interpretation:K 3.3 Performing Lab: Notes/Report: Test performed by [facility], [employer] [address] [place] [address] , [address], [place] [address] Lon Mai MD, [employer] Accounts Supervisor CLIA: [id number] Sodium 141 135-145 mmol/L Potassium 3.3 3.5-5.3 mmol/L Chloride 101 97-108 mmol/L CO2 30 22-32 mmol/L Glucose 92 65-99 mg/dL BUN 12 6-20 mg/dL Creatinine 0.60 0.50-1.00 mg/dL Calcium 9.0 8.6-10.4 mg/dL eGFR by Creatinine 105 >59 mL/min/1.73m2 REASON FOR VISIT Coccyx Pain and B12 Injection Medications Medication SIG (Take, Route, Frequency, Duration) Notes Start Date End Date Status Ondansetron 4 MG 1 tablet on the tongue and allow to dissolve Orally three times a day as needed 07/21/2023 Active Vitamin D3 50 MCG (2000 UT) 1 capsule Orally Once a day 07/16/2023 Active Vitamin B12 1000 MCG 1 tablet Orally Onc e a day 07/16/2023 Active Lexapro 20 MG 1 tablet Orally Once a day; Duration: 30 day(s) Active Furosemide 40 MG Take 1 tablet by mouth once daily; Duration: 15 Active Escitalopram Oxalate 20 MG 1 tablet Orally Once a day; Duration: 15 days Active Mounjaro 12.5 MG/0.5ML 12.5 mg Subcutane ous once a week PT NEEDS APPT Active Levothyroxine Sodium 125 MCG 1 tab(s) orally once a day; Duration: 30 days Active Montelukast Sodium 10 MG Take 1 tablet by mouth once daily; Duration: 90 Active Potassium Chloride ER 20 MEQ 1 tablet with food Orally Once a day; Duration: 30 day(s) 11/25/2023 Active Fluticasone Propionate 50 MCG/ACT 1 spray(s) in each nostril once a day 09/21/2020 Active Naproxen 500 MG 1 tab(s) orally 2 times a day 09/04/2022 Active Vital Signs Blood pressure systolic 110 mm Hg 10/08/19 25 Blood pressure diastolic 60 mm Hg 025 Heart Rate 71 /min 10/07/2024 Height 61 in 10/07/2024 Weight 127.2 lbs 10/07/2024 BMI 24.03 kg/m2 10/07/2024 Encounters Encounter Location Date Provider Diagnosis [facility] [address], [place] [phone] 10/07/2024 Lorena Vaughan Hypokalemia E87.6 ; Vitamin B12 deficiency E53.8 ; Coccygeal pain M53.3 and BMI 24.0-24.9, adult Z68.24 Assessments Encounter Date Diagnosis (ICD Code) Assessment Notes Treatment Notes Treatment Clinical Notes Section Notes 10/07/2024 Hypokalemia (ICD-10 - E87.6) 10/07/2024 Vitamin B12 deficiency (ICD-10 - E53.8) Will need a B12 shot once a week x 4 weeks and will then give once a month 10/07/2024 Coccygeal pain (ICD-10 - M53.3) X-rays were normal. Will try getting a butterfly pillow to sit on. If pain persists, will need more imaging. 10/07/2024 BMI 24.0-24.9, adult (ICD-10 - Z68.24) Plan Of Treatment Treatment Notes Assessment Notes Vitamin B12 deficiency Will need a B12 s hot once a week x 4 weeks and will then give once a month Coccygeal pain X-rays were normal. Will try getting a butterfly pillow to sit on. If pain persists, will need more imaging. Next Appt Details Follow Up: via phone to repo rt test results, Reason: Medications Administered Medication Instructions Date of Administration Dosage Notes B-12 10/07/2024 1 mL Progress Notes * ANETTE HOLTDOB:[birth year] (59 yo F)Acc No.[id number]:10/07/2024 Progress Notes Patient: ANETTE COOPER Provider: JULIO Weinberg :1965 A ge:59 Y S ex:Female Date:10/07/2024 Address:[address] [facility] [address] [id number] Pcp:Jacobo Marquez Subjective: * Chief Complaints: * 1 . Coccyx Pain and B12 Injection. * HPI: H PI: 59 year old female presents with c/o Patient is here today for?Pt sts she is here today for a check up and sts she would like a B12 shot as well. * ROS: D ERMATOLOGY: no R stefany. n o H consuelo. G ASTROENTEROLOGY: no N ausea. n o V omiting. U ROLOGY: no D ifficulty urinating. n o B lood in urine. * Medical History: H ypertension, Hypothyroidism, Sleep apnea, Hyperlipidemia, Impaired fasting glucose, Depression, Anxiety, COVID 05/2020. * Surgical History: c -section x3 , cholecystectomy , total right thyroidectomy and parial left thyroidectomy/ Dr. 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 * Hospitalization/Major Diagno stic Procedure: [facility]-spider bite 07/2016, [facility] - chest pain 12/19/2019. * [...] , Taking Mounjaro 12.5 MG/0.5ML Solution Auto-injector 12.5 mg Subcutaneous once a week , Notes to Pharmacist: PT NEEDS APPT, Taking Lexapro 20 MG Tablet 1 tablet Orally Once a day , Taking Furosemide 40 MG Tablet Take 1 tablet by mouth once daily , Medication List reviewed and reconciled with the patient * Allergies: E rythromycin, metFORMIN. Objective: * Vitals: W t: 127.2, Temp: 97.9, BP: 110/60, HR: 71, Nurse: tamara, Ht: 61, BMI:24.03. * Examination: G eneral Examination: General Appearance: N AD. C hest: n ormal shape and expansion. H eart: R SR. L ungs: c lear to auscultation. N eurologic Exam: I ntact, gait normal. S kin: n ormal, no rash. P eripheral pulses: n ormal (2+) bilaterally. E xtremities: n o leg edema. Assessment: * Assessment: 1. H ypokalemia - E87.6 (Primary) 2 . V itamin B12 deficiency - E53.8 ? 3 . C occygeal pain - M53.3 4 . B NE 24.0-24.9, adult - Z68.24? Plan: * Treatment: Value Reference Range B UN 12 6-20 - mg/dL * C alcium 9.0 8.6-10.4 - mg/dL * C hloride 101 97-108 - mmol/L * C O2 30 22-32 - mmol/L * C reatinine 0.60 0.50-1.00 - mg/dL * G lucose 92 65-99 - mg/dL * P otassium 3.3 L 3.5-5.3 - mmol/L * S odium 141 135-145 - mmol/L * e GFR by Creatinine 105 >59 - mL/min/1.73m2 * Lorena Vaughan 10/20/2024 1 2:38:08 PM >see TE 2.?Vitamin B12 deficiency? Notes: Will need a B12 shot once a week x 4 weeks and will then give once a month??3.?Coccygeal pain? Notes: X-rays were normal. Will try getting a butterfly pillow to sit on. If pain persists, will need more imaging.?? * Therapeutic Injections: B-12 : 1 mL (Route: Intramuscular) given by TAMARA Calvert on right gluteus (Vitamin B12 deficiency) * Procedure Codes: J 3420 B-12, 84483 ADMINISTRATION OF INJECTION, 3074F SYST BP LT 130 MM HG, 3078F DIAST BP < 80 MM HG * Follow Up: v ia phone to report test results * Images: Billing Information: * Visit Code: 94025 Office Visit, Est Pt., Level 3. Modifiers: 25 * Procedure Codes: J3420 B-12. 98819 ADMINISTRATION OF INJECTION. 3074F SYST BP LT 130 MM HG. 3078F DIAST BP < 80 MM HG. * Electronic signature of JULIO Clay on 02/17/2025 at 01:20 PM EDT Sign off status: Pending * Provider: JULIO Weinberg Date: 0 10/07/2024 Generated for Tracy orosco/Sussy/eTransmitting on: 0 02/17/2025 01:20 PM EDT History and Physical Notes * HPI (History of Present Illness) Category Sub-Category Detail Notes Category Not es HPI Patient is here today for Pt sts she is here today for a check up and sts she would like a B12 shot as well Examination Category Sub-Category Detail Notes Category Not es General Examination Heart: RSR Lungs: clear to auscultatio n Extremities: no leg edema General Appearance: NAD Skin: normal, no rash Neurologic Exam: Intact, gait normal Peripheral pulses: normal (2+) bilatera lly Chest: normal shape and exp ansion
[2025-02-16 14:58] LABS: Coronavirus 19, PCR Not Detected (NotDetected); Influenza A, PCR Not Detected (NotDetected); Influenza B, PCR Not Detected (NotDetected)
--- OUTSIDE RECORDS SUMMARY | 2025-02-17 13:22 | XMS_ITS | Patient Health Record ---
Author Organization [facility] Address [address] [place] [phone] Care Team Providers Care Mold Repairer Name Role Phone Jacobo Marquez Primary Care Provider Alek Rodriguez Unavailable [phone] Lorena Vaughan Unavailable [phone] Allergies Allergen (clinical drug ingredient) Drug/Non Drug [...] 3.3 Performing Lab: Notes/Report: Test performed by [facility], [address] , [address] , [place] [address] Lon Mai MD, Fusing Machine Tender CLIA: [id number] Sodium 141 135-145 mmol/L Potassium 3.3 3.5-5.3 [...] Status Risk Notes Problem Vitamin D deficiency (55648376) Vitamin D deficiency (E55.9) Active confirmed Problem Abnormal mammogram (946980751) Abnormal mammogram (R92.8) Active confirmed Problem Postherpetic neuralgia (4965303) Post herpetic neuralgia (B02.29) Active confirmed Problem Environmental allergy (177163423) Environmental allergies (Z91.048) Active confirmed Problem Liver function tests abnormal (525812519) Abnormal liver function test (R79.89) Active confirmed Problem Mixed anxiety and depressive disorder (469230864) Depression with anxiety (F41.8) Active confirmed Problem Localized edema (9407130) Localized edema (R60.0) Active confirmed Problem Nonunion of fracture (975241555) Fracture of unspecified phalanx of right ring finger, subsequent encounter for fracture with nonunion (S62.604K) Active confirmed Problem Sciatica (26119382) Sciatica of right side (M54.31) Active confirmed Problem Acquired hypothyroidism (384969895) Acquired hypothyroidism (E03.9) Active confirmed Problem Allergic rhinitis (06293510) Allergic rhinitis (J30.9) Active confirmed Problem Sleep disorder (20242398) Sleep disorder (G47.9) Active confirmed Problem Liver disease (850734302) Hepatic lesion (K76.9) Active confirmed Problem Obstructive sleep apnea syndrome (35459738) NICOLE (obstructive sleep apnea) (G47.33) Active confirmed Problem Obese class II (395149650864505) BMI 38.0-38.9,adult (Z68.38) Active confirmed Problem Hyperlipidaemia (34684499) Hyperlipidemia, unspecified hyperlipidemia type (E78.5) Active confirmed Problem Essential hypertension (26283939) Essential hypertension, hypertension with unspecified goal (I10) Active confirmed Problem Congenital anomaly of peripheral blood vessel (934765219) 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) Active confirmed Problem Allergic rhinitis caused by pollen (36726418) Seasonal allergic rhinitis due to pollen (J30.1) Active confirmed Problem Body mass index 40+ - severely obese (847165309) Body mass index (BMI) of 40.1 to 44.9 in adult (Z68.41) Active confirmed Problem Pain in coccyx (finding) (21230048) Coccyx pain (M53.3) Active confirmed Problem Type II diabetes mellitus without complication (740620472) Type 2 diabetes mellitus without complication, without long-term current use of insulin (E11.9) Active confirmed Problem Thyroid goiter (6303869) Thyroid goiter (E04.9) Active confirmed Problem Hemangioma of liver (27732469) Hemangioma of liver (D18.03) Active confirmed Problem Fibrocystic breast changes (95627840) Fibrocystic breast changes, unspecified laterality (N60.19) Active confirmed Problem Fibrocystic breast changes (84807838) Fibrocystic breast disease (FCBD), unspecified laterality (N60.19) Active confirmed Problem Allergic rhinitis (76876050) Non-seasonal allergic rhinitis, unspecified trigger (J30.89) Active confirmed Problem Radiology result abnormal (769173181) Abnormal chest CT (R93.89) Active confirmed Vital Signs Heart Rate 71 /min 10/07/2024 Blood pressure diastolic 60 mm Hg 10/07/2024 Height 61 in 10/07/2024 Blood pressure systolic 110 mm Hg 10/07/2024 Weight 127.2 lbs 10/07/2024 BMI 24.03 kg/m2 10/07/2024 Encounters Encounter Location Date Provider Diagnosis [facility] [address] [facility] [address] [place], [place] [id number] 09/21/2024 Lorena Vaughan Impaired fasting glu cose R73.01 ; Depression with anxiety F41.8 ; Essential hypertension, hypertension with unspecified goal I10 ; Elevated bilirubin R17 ; Vitamin B12 deficiency E53.8 ; Vitamin D deficiency E55.9 ; Coccyx pain M53.3 ; Lipid screening Z13.220 and BMI 22.0-22.9, adult Z68.22 [facility] [address] [place], [place] [id number] 10/07/2024 Lorena Crowdy Hypokalemia E87.6 ; Vitamin B12 deficiency E53.8 ; Coccygeal pain M53.3 and BMI 24.0-24.9, adult Z68.24 [facility] [address] [place], [place] [id number] 04/15/2024 Lorena Crowdy [facility] [address] [place], [place] [id number] 06/02/2024 Lorena Crowdy [facility] [address] [facility] [address] [place], [place] [id number] 09/22/2024 Lorena Crowdy [facility] [address] [facility] [address] [place], [place] [id number] 10/20/2024 Lorena Crowdy Assessments Encounter Date Diagnosis [...] ANTH [employer] [address] [place] [address] [id number] ANETTE HOLT Self - patient is the [...] on face endometrial hyperplasia with endometrial ablation [facility] 09/2006 Complete Hysterectomy 06/12/2017 tumor removed on left wrist 01/2019 Hospitalization History Reason Date(Month/Year) [facility] - chest pain 12/19/2019 [facility]-spider bite 07/2016
== END 2025-02-16 23:59 | disposition home or self-care (01) ==
LOC: LAB.DROPOF 02-17 13:19
PROVIDERS: PCP Nurse Practitioner; Visit Provider Nurse Practitioner
DX: J06.9 Acute upper respiratory infection, unspecified (principal)
CPT/HCPCS: 87631